=== PATIENT | male | born 1965 ===

== ENCOUNTER 2020-03-10 15:48 | Outpatient (REF) | payer OTHER, SELFPAY ==
--- NOTE | 2020-03-10 16:00 | MR_ITS ---
EXAMINATION: MR CERVICAL SPINE WITHOUT CONTRAST CLINICAL INFORMATION: Cervical radiculopathy. Bilateral upper extremity numbness and weakness. COMPARISON: Cervical spine MRI 02/09/2017. TECHNIQUE: MRI of the cervical spine was obtained using routine sequences without contrast. FINDINGS: Patient motion degrades image quality therefore the diagnostic accuracy of this examination is limited. Alignment is normal. Vertebral heights are preserved. There are type I degenerative endplate changes at C6-C7. Bone marrow signal intensity is otherwise unremarkable. There is loss of intervertebral disc height and T2 signal intensity at C6-C7 related to disc degeneration. There is disc desiccation at multiple additional levels without substantial loss of intervertebral disc height. There is no cord compression or abnormal intramedullary signal changes. The cervicomedullary junction is normal. Limited visualization of the intracranial compartment reveals no abnormal finding. A occipital condyles and lateral C1 masses are intact. Atlantodental joint is normal. C1-C2 articular facets are unremarkable. At C2-C3 the annular contour is normal. No canal or neuroforaminal compromise. At C3-C4 there is a slightly bulging disc. Mild canal stenosis. No neuroforaminal encroachment. At C4-C5 there is a shallow central protrusion. No canal or neuroforaminal encroachment. At C5-C6 there is a slightly bulging disc. No canal stenosis. Minimal uncovertebral joint spurring. No substantial neuroforaminal encroachment. At C6-C7 there is a diffusely bulging disc causing flattening of the ventral thecal sac. No canal stenosis. Asymmetric uncovertebral joint spurring and facet degenerative change causes moderate left neuroforaminal encroachment. At C7-T1 the annular contour is normal. No canal or neuroforaminal compromise. Visualized soft tissues of the neck are normal. IMPRESSION: Patient motion degrades image quality therefore the diagnostic accuracy of this examination is limited. There is multilevel degenerative spondylosis of the cervical spine. Mild canal stenosis at C3-C4. Otherwise no canal compromise. No cord compression or abnormal intramedullary signal changes. Asymmetric uncovertebral joint spurring and facet degenerative change at C6-C7 causes moderate left neuroforaminal encroachment.
== END 2020-03-10 15:49 | disposition home or self-care (01) ==
LOC: HO.MRI 15:48
PROVIDERS: Visit Provider Neurological Surgery
DX: M54.12 Radiculopathy, cervical region (principal); M54.2 Cervicalgia; M79.603 Pain in arm, unspecified
CPT/HCPCS: 72141

== ENCOUNTER 2020-03-16 08:10 | Outpatient (REF) | payer OTHER, SELFPAY ==
[2020-03-16 10:11] LABS: Alanine Aminotransferase 39 U/L (0-40); Albumin Level 4.4 g/dL (3.5-5.0); Alkaline Phosphatase 65 U/L (39-117); Anion Gap 10 (12-20); Aspartate Amino Transferase 35 U/L (5-37); Bilirubin Total 0.7 mg/dL (0.0-1.0); Blood Urea Nitrogen 14 mg/dL (9-16); Calcium 9.2 mg/dL (8.4-10.2); Carbon Dioxide 32 mmol/L (22-29); Chloride 103 mmol/L (96-108); Cholesterol 212 mg/dL; Estimated Glomerular Filt Rate > 60; Glucose Fasting 100 mg/dL (60-99); HDL Cholesterol 40 mg/dL; LDL Cholesterol Calculated 118 mg/dl; Potassium 4.2 mmol/l (3.3-5.1); Sodium 141 mmol/L (135-145); Total Protein 7.1 g/dL (6.5-8.0); Triglycerides 271 mg/dL
== END 2020-03-16 08:11 | disposition home or self-care (01) ==
LOC: HO.LAB 08:10
PROVIDERS: PCP Internal Medicine; Visit Provider Internal Medicine
DX: I10 Essential (primary) hypertension (principal)
CPT/HCPCS: 80053; 80061

== ENCOUNTER 2020-03-28 07:38 | Outpatient (REF) | payer OTHER, SELFPAY ==
[2020-03-28 08:32] LABS: Alanine Aminotransferase 38 U/L (0-40); Albumin Level 4.4 g/dL (3.5-5.0); Alkaline Phosphatase 65 U/L (39-117); Anion Gap 12 (12-20); Aspartate Amino Transferase 38 U/L (5-37); Bilirubin Total 1.8 mg/dL (0.0-1.0); Blood Urea Nitrogen 17 mg/dL (9-16); Calcium 8.9 mg/dL (8.4-10.2); Carbon Dioxide 28 mmol/L (22-29); Chloride 104 mmol/L (96-108); Cholesterol 211 mg/dL; Estimated Glomerular Filt Rate > 60; Glucose Fasting 107 mg/dL (60-99); HDL Cholesterol 45 mg/dL; LDL Cholesterol Calculated 134 mg/dl; Sodium 140 mmol/L (135-145); Triglycerides 164 mg/dL
[2020-03-28 08:55] LABS: TSH reflex Free T4 1.19 mIU/mL (0.32-4.0)
== END 2020-03-28 07:39 | disposition home or self-care (01) ==
LOC: HO.LAB 07:38
PROVIDERS: PCP Internal Medicine; Visit Provider Internal Medicine
DX: I10 Essential (primary) hypertension (principal); R53.82 Chronic fatigue, unspecified; E78.2 Mixed hyperlipidemia
CPT/HCPCS: 80053; 80061; 84443

== ENCOUNTER 2020-04-07 05:12 | Outpatient (REF) | payer OTHER, SELFPAY ==
--- NOTE | 2020-04-07 13:10 | FL_ITS ---
EXAMINATION: XR FLUOROSCOPY WITH IMAGES CLINICAL INFORMATION: Other intervertebral disc degeneration of the lumbar region COMPARISON: Lumbar spine 01/10/2020 TECHNIQUE: Fluoroscopy performed by ZANDRA Sousa. Fluoroscopy time: 0.8 minutes DAP: 4.76 Gycm2 Images: 4 FINDINGS: Intraoperative fluoroscopic spot images demonstrate guidance for placement of needles and contrast injection into the right L5-S1 and left L4-L5 neuroforamina. FL/FL guidance in treatment room IMPRESSION: Intraoperative fluoroscopic guidance as described above.
== END 2020-04-07 05:13 | disposition home or self-care (01) ==
LOC: HO.RADIR 05:12
PROVIDERS: Visit Provider Anesthesiology
DX: M51.36 Other intervertebral disc degeneration, lumbar region (principal)
CPT/HCPCS: 64483; 64484; J1100; J3300; Q9967

== ENCOUNTER 2020-04-27 09:33 | Outpatient (REF) | payer OTHER, SELFPAY | END 2020-04-27 09:34 | disposition home or self-care (01) | LOC: HO.LAB 09:33 | PROVIDERS: Visit Provider Internal Medicine | DX: Z20.828 Contact with and (suspected) exposure to other viral communicable diseases (principal) | CPT/HCPCS: C9803; U0003 ==

== ENCOUNTER → 2020-05-06 15:54 | Outpatient (BNVA) | payer OTHER, SELFPAY | PROVIDERS: PCP Internal Medicine; Referring Provider Internal Medicine; Visit Provider Anesthesiology | DX: M51.36 Other intervertebral disc degeneration, lumbar region (principal) | CPT/HCPCS: Q3014 ==

== ENCOUNTER 2020-05-11 08:38 | Outpatient (REF) | payer OTHER, SELFPAY | END 2020-05-11 08:39 | disposition home or self-care (01) | LOC: HO.LAB 08:38 | PROVIDERS: PCP Internal Medicine; Visit Provider Internal Medicine | DX: Z20.828 Contact with and (suspected) exposure to other viral communicable diseases (principal) | CPT/HCPCS: C9803; U0003 ==

== ENCOUNTER 2020-05-15 11:54 | Outpatient (REF) | payer OTHER, SELFPAY ==
--- NOTE | 2020-05-15 12:02 | XR_ITS ---
EXAMINATION: XR CERVICAL SPINE CLINICAL INFORMATION: Status post C6-C7 ACDF 04/09/2020. COMPARISON: None TECHNIQUE: 6 views of the cervical spine, inclusive of flexion and extension views, were obtained. FINDINGS: There is mild straightening of cervical lordosis. There is C6-C7 fusion with intervening bone graft and ventral plate and screws for stabilization. There is no subluxation seen at the fused level or any of the cervical disc levels. Mild ventral spurring is seen at the C5-C6 disc level. Rest of the disc heights, vertebral heights and alignment is maintained normal. The prevertebral and paravertebral soft tissues are normal. XR/XR cervical spine w flex/ext IMPRESSION: C6-C7 disc fusion with intervening bone graft , ventral plate and screws for stabilization. No subluxation seen at the fused level or rest of the cervical spine. There is a moderate ventral spur at C5-C6 disc level.
== END 2020-05-15 11:55 | disposition home or self-care (01) ==
LOC: HO.XRAY 11:54
PROVIDERS: PCP Internal Medicine; Visit Provider Neurological Surgery
DX: Z98.890 Other specified postprocedural states (principal)
CPT/HCPCS: 72052

== ENCOUNTER 2020-06-02 15:13 | Outpatient (REF) | payer OTHER, SELFPAY ==
--- NOTE | 2020-06-02 15:21 | XR_ITS ---
EXAMINATION: XR CHEST CLINICAL INFORMATION: Pneumonia due to] 19 minus COMPARISON: None TECHNIQUE: 2 views of the chest were obtained. FINDINGS: The lungs are expanded and clear of acute process. The heart size and pulmonary vascularity is normal. There is mild spondylosis of dorsal spine. No lytic process. XR/XR chest 2V IMPRESSION: Unremarkable chest exam.
== END 2020-06-02 15:14 | disposition home or self-care (01) ==
LOC: HO.XRAY 15:13
PROVIDERS: PCP Internal Medicine; Visit Provider Internal Medicine
DX: U07.1 COVID-19 (principal)
CPT/HCPCS: 71046

== ENCOUNTER 2020-07-09 16:04 | Outpatient (REF) | payer OTHER, SELFPAY ==
--- NOTE | ~2020-07-09 | XR_ITS ---
EXAMINATION: XR LUMBOSACRAL SPINE CLINICAL INFORMATION: Low back pain COMPARISON: Previous MRI most recent December 2019 and lump x-ray December 2014 TECHNIQUE: Three views of the lumbosacral spine. FINDINGS: There is mild curvature of the lower lumbar spine to the left. There is mild 5 mm anterior subluxation of L5 with respect to L4. There is a degenerative disc disease at L4-L5 and L5-S1. There is degenerative spondylosis at L1-L2 3 and L3-L4. There is lower lumbar spine facet arthritis. Bilateral L5 pars defects appreciated by MRI are not well appreciated by x-ray. XR/XR lumbar spine 2-3V IMPRESSION: Mild anterior subluxation of L5 with respect to L4, lower lumbar spine and degenerative disc disease and facet arthritis. Degenerative changes have increased from 2015 x-ray.
== END 2020-07-09 16:05 | disposition home or self-care (01) ==
LOC: HO.XRAY 16:04
PROVIDERS: Absent Provider Nurse Practitioner Family; PCP Internal Medicine; Visit Provider Anesthesiology
DX: M54.5 Low back pain (principal)
CPT/HCPCS: 72100; 99212

== ENCOUNTER 2020-11-13 13:19 | Outpatient (REF) | payer OTHER, SELFPAY ==
[2020-11-13 16:25] LABS: Glucose Urine UA NEG (NEG); Leukocyte Esterase Urine NEG (NEG); Nitrite Urine NEG (NEG); Urine Blood NEG (NEG); Urine Ketones NEG (NEG); Urine Protein NEG (NEG-TRACE)
[2020-11-13 16:27] LABS: Appearance Urine CLEAR; Color Urine YELLOW
== END 2020-11-13 13:20 | disposition home or self-care (01) ==
LOC: HO.LAB 13:19
PROVIDERS: PCP Internal Medicine; Visit Provider Internal Medicine
DX: R31.9 Hematuria, unspecified (principal)
CPT/HCPCS: 81003

== ENCOUNTER 2021-05-08 07:52 | Outpatient (REF) | payer OTHER, SELFPAY ==
[2021-05-08 08:07] LABS: MANUAL DIFF FLAG NO
[2021-05-08 09:09] LABS: Basophils Percent Auto 0.5 % (0-2); Eosinophils Absolute Auto 0.2 X10*3/uL (0.0-0.4); Eosinophils Percent Auto 3.3 % (0-4); Hematocrit 45.8 % (42.0-52.0); Hemoglobin 15.2 g/dl (14.0-18.0); Imm Gran Abs Auto 0.01 X10*3/uL (0.00-0.03); Imm Gran Pct Auto 0.2 % (0.0-0.4); Lymphocytes Absolute Auto 2.1 X10*3/uL (1.2-4.9); Lymphocytes Percent Auto 36.7 % (20-40); Mean Corpuscular HGB Conc 33.2 g/dl (31.0-36.0); Mean Corpuscular Hemoglobin 29.6 pg (27.0-33.0); Mean Corpuscular Volume 89.3 fL (80.0-98.0); Monocytes Absolute Auto 0.4 X10*3/uL (0.1-1.2); Monocytes Percent Auto 6.8 % (2-11); Neutrophils Percent Auto 52.5 % (45-73); Platelet Count 243 X10*3/uL (160-400); Red Blood Count 5.13 X10*6/uL (4.60-5.80); Red Cell Distribution Width 12.6 % (11.0-16.0); White Blood Count 5.7 X10*3/uL (4.8-10.8)
[2021-05-08 09:33] LABS: Alanine Aminotransferase 21 U/L (0-40); Albumin Level 4.2 g/dL (3.5-5.0); Alkaline Phosphatase 75 U/L (39-117); Anion Gap 10 (12-20); Aspartate Amino Transferase 29 U/L (5-37); Bilirubin Total 1.4 mg/dL (0.0-1.0); Blood Urea Nitrogen 11 mg/dL (9-16); Calcium 9.3 mg/dL (8.4-10.2); Carbon Dioxide 30 mmol/L (22-29); Chloride 106 mmol/L (96-108); Cholesterol 161 mg/dL; Estimated Glomerular Filt Rate > 60; Glucose Fasting 95 mg/dL (60-99); HDL Cholesterol 44 mg/dL; LDL Cholesterol Calculated 94 mg/dl; Potassium 4.3 mmol/L (3.3-5.1); Sodium 142 mmol/L (135-145); Total Protein 6.8 g/dL (6.5-8.0); Triglycerides 118 mg/dL
[2021-05-13 14:06] LABS: Vitamin D 25-OH, D2 <4 ng/mL; Vitamin D 25-OH, D3 34 ng/mL; Vitamin D 25-OH, Total 34 ng/mL (30-100)
[2021-05-13 16:06] LABS: Testosterone, Free 100.1 pg/mL (35.0-155.0); Testosterone, Total 541 ng/dL (250-1100)
== END 2021-05-08 07:53 | disposition home or self-care (01) ==
LOC: HO.LAB 07:52
PROVIDERS: PCP Internal Medicine; Visit Provider Internal Medicine
DX: E78.5 Hyperlipidemia, unspecified (principal); I10 Essential (primary) hypertension; E55.9 Vitamin D deficiency, unspecified; R53.82 Chronic fatigue, unspecified; D64.9 Anemia, unspecified; I26.99 Other pulmonary embolism without acute cor pulmonale
CPT/HCPCS: 36415; 80053; 80061; 82306; 84402; 84403; 85025

== ENCOUNTER 2021-09-18 07:19 | Outpatient (REF) | payer OTHER, SELFPAY ==
[2021-09-18 07:42] LABS: MANUAL DIFF FLAG NO
[2021-09-18 08:10] LABS: Basophils Percent Auto 0.5 % (0-2); Eosinophils Absolute Auto 0.2 X10*3/uL (0.0-0.4); Eosinophils Percent Auto 2.9 % (0-4); Hematocrit 44.4 % (42.0-52.0); Hemoglobin 15.3 g/dl (14.0-18.0); Imm Gran Abs Auto 0.02 X10*3/uL (0.00-0.03); Imm Gran Pct Auto 0.3 % (0.0-0.4); Lymphocytes Absolute Auto 2.1 X10*3/uL (1.2-4.9); Lymphocytes Percent Auto 36.4 % (20-40); Mean Corpuscular HGB Conc 34.5 g/dl (31.0-36.0); Mean Corpuscular Hemoglobin 30.2 pg (27.0-33.0); Mean Corpuscular Volume 87.6 fL (80.0-98.0); Mean Platelet Volume 9.6 fL (9.4-12.4); Monocytes Absolute Auto 0.5 X10*3/uL (0.1-1.2); Monocytes Percent Auto 7.7 % (2-11); Neutrophils Percent Auto 52.2 % (45-73); Platelet Count 268 X10*3/uL (160-400); Red Blood Count 5.07 X10*6/uL (4.60-5.80); White Blood Count 5.8 X10*3/uL (4.8-10.8)
[2021-09-18 08:38] LABS: Alanine Aminotransferase 35 U/L (0-40); Albumin Level 4.4 g/dL (3.5-5.0); Alkaline Phosphatase 68 U/L (39-117); Anion Gap 10 (12-20); Aspartate Amino Transferase 47 U/L (5-37); Bilirubin Total 1.7 mg/dL (0.0-1.0); Blood Urea Nitrogen 17 mg/dL (9-16); Calcium 9.3 mg/dL (8.4-10.2); Carbon Dioxide 28 mmol/L (22-29); Chloride 105 mmol/L (96-108); Cholesterol 215 mg/dL; Estimated Glomerular Filt Rate > 60; Glucose Fasting 101 mg/dL (60-99); HDL Cholesterol 52 mg/dL; LDL Cholesterol Calculated 146 mg/dl; Potassium 3.9 mmol/L (3.3-5.1); Sodium 139 mmol/L (135-145); Total Protein 7.1 g/dL (6.5-8.0); Triglycerides 88 mg/dL
== END 2021-09-18 07:20 | disposition home or self-care (01) ==
LOC: HO.LAB 07:19
PROVIDERS: PCP Internal Medicine; Visit Provider Internal Medicine
DX: Z13.89 Encounter for screening for other disorder (principal)
CPT/HCPCS: 36415; 80053; 80061; 85025

== ENCOUNTER 2021-11-02 15:33 | Outpatient (REF) | payer OTHER, SELFPAY ==
[2021-11-02 17:53] LABS: Bilirubin Direct 0.3 mg/dL (0.0-0.5); Gamma Glutamyl Transpeptidase 44 U/L (11-51)
[2021-11-02 18:15] LABS: Ferritin 189 ng/mL (20-250)
[2021-11-03 03:57] LABS: HBS Num1 1.35 mIU/mL (0-7.99); HBsAGNum1 0.18 S/CO (0.00-0.99); HIV AB/AG Nonreactive (Nonreactive); HIV Num 1 0.06 S/CO (0.00-0.99); Hepatitis A Antibody IgM 0.44 Index (0-0.79); Hepatitis B Core Antibody Nonreactive (Nonreactive); Hepatitis B Surface Antigen Negative (Negative); ~HepC Num1 0.05 S/CO (0.00-0.79); ~Hepatitis A Antibody IgM Nonreactive (Nonreactive); ~Hepatitis B Surface Antibody NONREACTIVE (Nonreactive); ~Hepatitis C Antibody Nonreactive (Nonreactive)
[2021-11-04 11:36] LABS: Alpha Fetoprotein 1.5 ng/mL (<6.1)
[2021-11-04 14:17] LABS: Anti Nuclear Antibody Screen NEGATIVE (NEGATIVE)
[2021-11-04 14:42] LABS: Ceruloplasmin 26 mg/dL (18-36)
[2021-11-05 15:41] LABS: Mitochondrial Antibodies NEGATIVE (NEGATIVE)
[2021-11-05 23:47] LABS: Smooth Muscle Antibody <20 U (<20)
== END 2021-11-02 15:34 | disposition home or self-care (01) ==
LOC: HO.LAB 15:33
PROVIDERS: PCP Internal Medicine; Referring Provider Internal Medicine; Visit Provider Nurse Practitioner
DX: Z11.4 Encounter for screening for human immunodeficiency virus [HIV] (principal); R74.01 Elevation of levels of liver transaminase levels
CPT/HCPCS: 36415; 82105; 82248; 82390; 82728; 82977; 86015; 86038; 86039; 86255; 86256; 86704; 86706; 86709; 86803; 87340; 87389; 99202

== ENCOUNTER 2021-12-01 07:48 | Outpatient (REF) | payer OTHER, SELFPAY ==
--- NOTE | ~2021-12-01 | US_ITS ---
EXAMINATION: US COMPLETE ABDOMEN WITH LIVER ELASTOGRAPHY CLINICAL INFORMATION: Elevated serum liver transaminase levels. COMPARISON: None. TECHNIQUE: Real-time imaging of the abdominal viscera. Noninvasive ultrasound liver fibrosis assessment is performed using [employer] ElastPQ point quantification shear wave elastography (2D-SWE) with a C5-2 MHz transducer. Multiple elastography samples are obtained. FINDINGS: PANCREAS: The majority of the pancreas is obscured by overlying gas. ABDOMINAL AORTA: The proximal, middle, and distal aortic segments are normal in caliber. INFERIOR VENA CAVA: Visualized portions are normal. LIVER: The liver demonstrates normal size, contour and increased echogenicity. There is ill-defined echogenic lesion artifact versus hepatic fatty infiltration. There is no intrahepatic biliary duct dilatation. The right lobe measures 18.1 cm in length. The left lobe measures 8.3 cm in length. Portal flow is antegrade. Shear wave liver elastography median stiffness is 1.25 m/s (reference: normal median stiffness is 1.3 m/s or less). IQR/median stiffness to assess sampling precision is 0.1 (reference: good quality data set is IQR/median stiffness of 0.15 or less). GALLBLADDER: Normal. The gallbladder is physiologically distended without evidence of stones, sludge, polyps, wall thickening or pericholecystic fluid. COMMON BILE DUCT: Normal in caliber measuring 0.3 cm in diameter. RIGHT KIDNEY: Normal. No hydronephrosis. No renal calculi or focal parenchymal lesions. The kidney measures 10.2 cm in maximum dimension. LEFT KIDNEY: Normal. No hydronephrosis. No renal calculi or focal parenchymal lesions. The kidney measures 10.5 cm in maximum dimension. SPLEEN: Normal. The spleen measures 11.4 cm in maximum dimension. FREE FLUID: None. US/US abdomen comp w elastography IMPRESSION: 1. Hepatic steatosis with few scattered echogenic lesions likely artifact or fatty infiltration. 2. Liver elastography: Median liver stiffness measures 1.25 m/s suggestive of high probably normal. REFERENCE: Society of Radiologists in Ultrasound Liver Stiffness Thresholds (2020): LIVER STIFFNESS THRESHOLDS: *Liver Stiffness equal or less than 1.3 m/s: High probability of being normal. *Liver Stiffness less than 1.7 m/s: In the absence of other known clinical signs, rules out compensated advanced chronic liver disease. *Liver Stiffness 1.7-2.1 m/s: Suggestive of compensated advanced chronic liver disease but need further test for confirmation. *Liver Stiffness over 2.1 m/s: Rules in compensated advanced chronic liver disease. *Liver Stiffness over 2.4 m/s: Suggestive of clinically significant portal hypertension. QUALITY OF DATA SET: *IQR/Median value equal or less than 0.15 implies a quality data set. *IQR/Median value over 0.15 implies a poor quality data set. SIGNIFICANT CHANGE FROM PRIOR EXAM: Significant change if liver stiffness measurement is 10% or greater from prior exam. OTHER CONSIDERATIONS: The stage of liver fibrosis may be overestimated in the setting of acute hepatitis, liver inflammation, elevated liver function tests, hepatic vascular congestion, obstructive cholestasis, non-fasting state, and infiltrative diseases such as amyloidosis and lymphoma. In some patients with NAFLD, the liver stiffness thresholds for compensated advanced chronic liver disease may be lower. In causes other than viral hepatitis and NAFLD, liver stiffness thresholds are not well established.
== END 2021-12-01 07:49 | disposition home or self-care (01) ==
LOC: HO.US 07:48
PROVIDERS: Visit Provider Nurse Practitioner
DX: R74.01 Elevation of levels of liver transaminase levels (principal)
CPT/HCPCS: 76705; 76981

== ENCOUNTER → 2022-02-28 12:41 | Outpatient (REF) | payer OTHER, SELFPAY ==
--- NOTE | 2022-02-28 12:46 | ECG_ITS ---
Test Reason : cp Blood Pressure : / mmHG Vent. Rate : 068 BPM Atrial Rate : 068 BPM P-R Int : 162 ms QRS Dur : 110 ms QT Int : 378 ms P-R-T Axes : 059 038 032 degrees QTc Int : 401 ms Normal sinus rhythm Normal ECG No previous ECGs available Referred By: Seble Oscar Electronically Signed By:DENISA SANTIAGO
== END ==
LOC: HO.CARD 12:41
PROVIDERS: PCP Internal Medicine; Visit Provider Internal Medicine
DX: R07.9 Chest pain, unspecified (principal)
CPT/HCPCS: 93005

== ENCOUNTER 2022-08-27 07:03 | Outpatient (REF) | payer OTHER, SELFPAY ==
[2022-08-27 09:15] LABS: Alanine Aminotransferase 26 U/L (0-40); Albumin Level 4.4 g/dL (3.5-5.0); Alkaline Phosphatase 100 U/L (39-117); Anion Gap 14 (12-20); Aspartate Amino Transferase 32 U/L (5-37); Bilirubin Direct 0.2 mg/dL (0.0-0.5); Bilirubin Total 1.1 mg/dL (0.0-1.0); Blood Urea Nitrogen 14 mg/dL (9-16); Calcium 9.5 mg/dL (8.4-10.2); Carbon Dioxide 30 mmol/L (22-29); Chloride 103 mmol/L (96-108); Cholesterol 202 mg/dL; Estimated Glomerular Filt Rate > 60; Glucose Fasting 96 mg/dL (60-99); HDL Cholesterol 45 mg/dL; LDL Cholesterol Calculated 126 mg/dl; Potassium 4.5 mmol/L (3.3-5.1); Sodium 142 mmol/L (135-145); Total Protein 7.2 g/dL (6.5-8.0); Triglycerides 159 mg/dL
[2022-08-27 09:36] LABS: Vitamin D 25-OH Total 53.8 ng/mL (>30)
== END 2022-08-27 07:04 | disposition home or self-care (01) ==
LOC: HO.LAB 07:03
PROVIDERS: PCP Internal Medicine; Visit Provider Internal Medicine
DX: E78.5 Hyperlipidemia, unspecified (principal); R07.9 Chest pain, unspecified; E55.9 Vitamin D deficiency, unspecified; R74.01 Elevation of levels of liver transaminase levels
CPT/HCPCS: 36415; 80053; 80061; 80076; 82248; 82306

== ENCOUNTER 2022-12-09 15:32 | Outpatient (AMB) | payer OTHER, SELFPAY ==
[2022-12-09 15:33] VITALS: BP 130/94; PULSE 70; O2SAT 99; BMI 28.0
--- NOTE | 2022-12-09 15:33 | A.OFFPC_ITS ---
Vital Signs 12/09/22 15:33 Height 5 ft 4 in Weight 163 lb BMI 28.0 BP 130/94 H Blood Pressure Location Lt brachial Position Sitting Pulse 70 Pulse Source Pulse Oximeter Temp Source Skin Pulse Oximetry (%) 99 Oxygen Delivery Method Room Air Intake Visit Reasons: Gastro Referral-Colonoscopy Intake Note: pt states colonoscopy needed and gastroenterology referral Allergies prochlorperazine [From COMPAZINE] Allergy (Intermediate, Verified 12/09/22 16:14) DIFFICULTY BREATHING gabapentin Allergy (Mild, Verified 12/09/22 16:14) depression Medication List - Last Reconciled 12/09/22 by ANNA Spaulding cholecalciferol (vitamin D3) 50 mcg PO DAILY cyanocobalamin (vitamin B-12) 2,500 mcg PO DAILY docusate sodium (Colace) 100 mg PO DAILY PRN 30 days omega 5-get-vkw-fish oil 1,000 mg (120 mg-180 mg) (Fish Oil) 1 cap PO DAILY Tobacco use date assessed: 12/09/22 HPI Gastro Referral-Colonoscopy HPI Details Patient is a 57-year-old male who presents today to request referral to GI for a colon cancer screening. Patient Dr. Marshall. Medical history significant for hyperlipidemia, hypertension, degenerative disc disease, cervical radiculopathy, OLIVA among others. Patient reports chronic intermittent con stipation, he does take Colace as needed with some improvement. He reports intermittent blood on toilet paper which is bright red, and reports intermittent rectum irritation. He denies abdominal pain, no nausea or vomiting, no diarrhea. Last colonoscopy 02/2015 which showed diverticulosis, internal hemorrhoids, and anal papillary hypertrophy - was done by Dr. Arrington. [facility] Medical History (Updated 12/09/22 @ 16:39 by ANNA Spaulding) Cervical radiculopathy Chronic fatigue Disc degeneration, lumbar Essential hypertension Hearing loss Hematuria Lab test positive for detection of COVID-19 virus Left shoulder pain Lower back pain Mixed hyperlipidemia Pulmonary embolism Transaminitis Surgical History (Updated 12/09/22 @ 16:37 by ANNA Spaulding) H/O neck surgery History of colonoscopy History of rectal polypectomy Family History Father Dementia Mother Hypertension Diabetes Social History Housing: Apartment Alcohol intake: current Alcohol intake frequency: holidays/special occasions only Alcohol type: beer and hard liquor Patient Tobacco Use Status: Former Tobacco user e-Cigarette/Vaping Use: Never Used Second Hand Smoke Exposure: Yes service: No Current occupational status: employed Current occupational exposures/hazards: No Cognitive needs: No Hearing needs: No Vision needs: Yes Questionnaire PHQ-9 Over the last 2 weeks, how often have you been bothered by any of the following problems? 1. Little interest or pleasure in doing things: not at all 2. Feeling down, depressed, or hopeless: not at all 3. Trouble falling or staying asleep, or sleeping too much: several days 4. Feeling tired or having little energy: not at all 5. Poor appetite or overeating: not at all 6. Feeling bad about yourself - or that you are a failure or have let yourself or your family down: not at all 7. Trouble concentrating on things, such as reading the newspaper or watching television: not at all 8. Moving or speaking so slowly that other people could have noticed. Or the opposite - being so fidgety or restless that you have been moving around a lot more than usual: several days 9. Thoughts that you would be better off or of hurting yourself in some way: not at all Total score: 2 Depression Screening Interpretation: Negative 31346 - PHQ-9 Billing: Yes Source: Developed by Drs. Jimmy Guerra, Kamran Norwood and colleagues, with an educational eber from [employer]. Thrive Questionnaire Date Thrive assessed: 08/30/22 AUDIT C Alcohol Use Questionnaire (AUDIT-C) 1. How often do you have a drink containing alcohol?: Monthly or less 2. How many drinks containing alcohol do you have on a typical day when you are drinking?: 1 or 2 3. How often do you have six or more drinks on one occasion?: Never Total Score: 1 Score Reviewed/Action Taken: No GIA-7 AMB Questionnaire GIA-7 Date GIA - 7 assessed: 08/30/22 Source: Developed by Drs. Jimmy Guerra, Kamran Norwood and colleagues, with an educational eber from [employer] Review of Systems Const Denies body aches, Denies chills, Denies fever(s) and Denies headache(s) Eyes Denies change in vision ENT Denies dizziness, Denies otalgia, Denies headache(s), Denies nasal discharge, Denies sinus pain and Denies sore throat Card Denies chest pain, Denies edema, Denies lightheadedness and Denies dyspnea Resp Denies cough and Denies dyspnea GI Reports as per HPI, Denies abdominal pain, Reports hematochezia, Reports constipation, Denies diarrhea, Denies nausea and Denies vomiting Denies dysuria Musc Denies myalgias Skin/Breast Denies rash Neuro Denies dizziness and Denies headache(s) Physical exam (Primary Care) Vital Signs: Last Vital Signs Pulse 70 12/09/22 15:33 BP 130/94 H 12/09/22 15:33 Pulse Ox 99 12/09/22 15:33 Oxygen Delivery Method Room Air 12/09/22 15:33 BMI result Body Mass Index 28.0 Tobacco/Smoking Status: Tobacco use Status Tobacco use date assessed 12/09/22 12/09/22 15:35 Patient Tobacco Use Status Former Tobacco user 12/09/22 15:34 e-Cigarette/Vaping Use Never Used 12/09/22 15:34 PHQ-9: PHQ-9 Score PHQ-9: Total score 2 12/09/22 15:53 Depression Screening Interpretation: Negative Thrive Assessment: Date of Thrive Assessment Date Thrive assessed 08/30/22 12/09/22 15:34 Const General: cooperative and no acute distress Orientation/consciousness: patient oriented x3 HENMT Head: Yes normocephalic and Yes atraumatic Mouth: moist mucous membranes Throat: Yes posterior oropharynx normal Eyes General: appearance normal, both eyes and all related structures Neck Neck: Yes normal visual inspection and Yes full ROM Resp Effort & Inspection: normal respiratory effort and able to speak in complete sentences Auscultation: clear to auscultation bilaterally, no crackles, no rales, no rhonchi and no wheezes Cardio Rate: regular rate Rhythm: regular rhythm Heart sounds: S1 normal heart sound present and S2 normal heart sound present GI Other: Patient declined exam to assess for external hemorrhoids Palpation (GI): Soft to palpation, not firm, nontender, no guarding, not rigid and no hepatosplenomegaly Auscultation: normal bowel sounds Skin General skin exam: no rashes or lesions noted Neuro General: patient oriented x3 Gait exam (Neuro): Normal gait present Extrem General: Yes full ROM and No edema Assessment and Plan Assessment & Plan (1) Skin irritation: Code(s): R23.8 - Other skin changes Plan: Patient reports intermittent rectal skin irritation, will provide with preparation H topical application p.r.n.. Patient declined assessment for external hemorrhoids. (2) Screening for colon cancer: Code(s): Z12.11 - Encounter for screening for malignant neoplasm of colon Plan: Will refer to GI for a possible colonoscopy (3) Constipation: Code(s): K59.00 - Constipation, unspecified Plan: Increase dietary fiber and fluid consumption Continue Colace 1 capsule daily p.r.n. (4) Bright red blood per rectum: Code(s): K62.5 - Hemorrhage of anus and rectum Plan: GI referral Orders: Referrals Gastroenterology Referral K59.00 - Constipation, unspecified, K62.5 - Hemorrhage of anus and rectum, Z12.11 - Encounter for screening for malignant neoplasm of colon Medications: New hydrocortisone 1% (Preparation H Hydrocortisone) 1 appl topical TID PRN 28.35 grams 0RF skin irritation R23.8 - Other skin changes Refilled docusate sodium (Colace) 100 mg PO DAILY PRN 30 caps 0RF constipation 30 days Coding Level of Care Code Est Pt Level 3 (60649) Diagnoses Skin irritation R23.8 Screening for colon cancer Z12.11 Constipation K59.00 Bright red blood per rectum K62.5
== END 2022-12-09 17:36 | disposition home or self-care (01) ==
PROVIDERS: PCP Internal Medicine; Visit Provider Nurse Practitioner Family
DX: R23.8 Other skin changes (principal); Z12.11 Encounter for screening for malignant neoplasm of colon; K59.00 Constipation, unspecified; K62.5 Hemorrhage of anus and rectum
CPT/HCPCS: 99213

== ENCOUNTER 2022-12-23 15:59 | Outpatient (AMB) | payer OTHER, SELFPAY ==
[2022-12-23 16:01] VITALS: BP 159/95; PULSE 65; BMI 28.1
--- NOTE | 2022-12-23 16:01 | MHC.OFFVIS ---
Intake Vital Signs 12/23/22 16:01 Height 5 ft 4 in Weight 164 lb BMI 28.1 BP 159/95 H Blood Pressure Location Lt brachial Position Sitting Pulse 65 Intake Visit Reasons: Follow up Constipation Intake Note: Patient presents to in office visit today in follow up of constipation. CC: Patient reports he feels internal rectal burning. He would like to have a colonoscopy done. He also reports bleeding when having a BM, and occasional nausea and GERD. Denies other GI symptoms today. Allergies prochlorperazine [From COMPAZINE] Allergy (Intermediate, Verified 12/29/22 15:41) DIFFICULTY BREATHING gabapentin Allergy (Mild, Verified 12/29/22 15:41) depression HPI Follow up Constipation HPI Details Assessment & Plan (1) Transaminitis: Code(s): R74.01 - Elevation of levels of liver transaminase levels Plan: Jamaican #[id number] He tells me I had an endoscopy and a liver biopsy in 2004 for my liver and they told me my liver was a little fatty, but not bad. He thinks this was performed at [facility]. HE says that he goes to the gym and uses a lot of creatinine, protein and vitamins and wants to know if this is a part of the problem. He also says he takes Tylenol and naproxen for JACKSON. He admits that he will take more Tylenol than is recommended on the box. This prompts education regarding the toxicity of Tylenol. He says he used to drink too much 20 years ago, and now he only drinks yearly, not on a daily basis. No FHX of liver problems. I explain about fatty liver briefly so that he knows that there are some things more inherited than behavior directed. He quite guarded and in the end his reservations centered around the fact that he did not want a repeat liver biopsy. Explained to him that we do not do these so frequently anymore and there is no reason why we would need to repeat this examination. I asked him to always bring up anything that may concerned him or as we go forward with his treatment. rov after US. Orders: Orders Alpha Fetoprotein Today R74.01 - Elevation of levels of liver transaminase levels Bilirubin Direct Today R74.01 - Elevation of levels of liver transaminase levels Ceruloplasmin Today R74.01 - Elevation of levels of liver transaminase levels Ferritin Today R74.01 - Elevation of levels of liver transaminase levels Gamma Glutamyl Transpeptidase Today R74. - Elevation of levels of liver transaminase levels HEATHER Reflex Titer and Pattern Today R74. - Elevation of levels of liver transaminase levels Mitochondrial Antibody Today R74. - Elevation of levels of liver transaminase levels Smooth Muscle Antibody Today R74. - Elevation of levels of liver transaminase levels Hepatitis A,B,C Profile Today R74. - Elevation of levels of liver transaminase levels HIV Ab/Ag Today R74. - Elevation of levels of liver transaminase levels US abdomen comp w elastography Today R74. - Elevation of levels of liver transaminase levels LABS: Laboratory Tests 09/18/21 11/02/21 11/02/21 07:41 16:40 16:40 WBC 5.8 Hgb 15.3 Hct 44.4 Plt Count 268 Estimated GFR Ferritin 189 Total Bilirubin Direct Bilirubin GGT 44 AST ALT Alkaline Phosphata se Ceruloplasmin 26 Alpha Fetoprotein 1.5 HEATHER Screen Anti-Mitochondrial Ab Anti-Smooth Muscle Ab Hepatitis A IgM Ab Hep Bs Antigen Hep Bs Antibody Hep B Core Total A b Hepatitis C Ab (EI A) HIV 1&2 Ab/P24 Ag 4thGn 11/02/21 11/02/21 11/02/21 16:40 16:40 16:40 WBC Hgb Hct Plt Count Estimated GFR Ferritin Total Bilirubin Direct Bilirubin GGT AST ALT Alkaline Phosphata se Ceruloplasmin Alpha Fetoprotein HEATHER Screen NEGATIVE Anti-Mitochondrial Ab NEGATIVE Anti-Smooth Muscle Ab <20 Hepatitis A IgM Ab Nonreactive Hep Bs Antigen Negative Hep Bs Antibody NONREACTIVE Hep B Core Total A b Nonreactive Hepatitis C Ab (EI A) Nonreactive HIV 1&2 Ab/P24 Ag 4thGn Nonreactive 08/27/22 07:11 WBC Hgb Hct Plt Count Estimated GFR > 60 Ferritin Total Bilirubin 1.1 H Direct Bilirubin 0.2 GGT AST 32 ALT 26 Alkaline Phosphata se 100 Ceruloplasmin Alpha Fetoprotein HEATHER Screen Anti-Mitochondrial Ab Anti-Smooth Muscle Ab Hepatitis A IgM Ab Hep Bs Antigen Hep Bs Antibody Hep B Core Total A b Hepatitis C Ab (EI A) HIV 1&2 Ab/P24 Ag 4thGn ULTRASOUND OF THE ABDOMEN WITH ELASTOGRAPHY (F-0) 12/02/21 IMPRESSION: 1. Hepatic steatosis with few scattered echogenic lesions likely artifact or fatty infiltration. ? 2. Liver elastography: Median liver stiffness measures 1.25 m/s suggestive of high probably normal. TODAY'S VISIT Jamaican #declines WE review the above results and given the very mild fatty liver this can be followed by his PCP. He has on and off CIC and he is bothered by a burning inside. This is worse when he comes home from the gym. He is also having some rectal bleeding intermittently. He has a hx of external thrombosed hemorrhoid that were addressed in the past by Dr. Degroot. HE has been using OTC prep H and a rx'ed hydrocortisone cream w/o relief. He is also was instructed about ice packs and sitz baths, but since he wants something else I will refer him to surgery for consideration. He only takes colace for his constipation and he feels this is sufficient. NO FHX of crc or polyps. He had a negative scope in 2015. There are no prior problems with anesthesia or sedation. Denies any cardiac or respiratory problems. NO ID problems. NO known FHX crc or polyps. [facility] Medical History (Updated 01/12/23 @ 16:29 by SURJIT Vo) Bleeding hemorrhoids Cervical radiculopathy Chronic fatigue Disc degeneration, lumbar Essential hypertension External thrombosed hemorrhoids Hearing loss Hematuria Lab test positive for detection of COVID-19 virus Left shoulder pain Lower back pain Mixed hyperlipidemia Pulmonary embolism Transaminitis Surgical History H/O neck surgery History of colonoscopy History of rectal polypectomy Family History Father Dementia Mother Hypertension Diabetes Social History Housing: Apartment Alcohol intake: current Alcohol intake frequency: holidays/special occasions only Alcohol type: beer and hard liquor Patient Tobacco Use Status: Former Tobacco user e-Cigarette/Vaping Use: Never Used Second Hand Smoke Exposure: Yes service: No Current occupational status: employed Current occupational exposures/hazards: No Cognitive needs: No Hearing needs: No Vision needs: Yes Review of Systems Const Denies fatigue, Denies fever(s), Denies night sweats, Denies poor appetite and Denies weight loss ENT Reports Normal hearing present, Denies dental pain, Denies dysphagia, Denies hearing loss, Denies mouth pain, Denies odynophagia, Denies throat swelling, Denies tongue swelling and Reports other (Dentition adequate) Card Reports no additional complaints Resp Reports no additional complaints GI Denies abdominal pain, Denies melena, Denies bloating, Reports hematochezia, Reports constipation, Denies GI cramping, Denies dysphagia, Denies excessive flatus, Denies early satiety, Denies heartburn, Denies diarrhea, Denies nausea, Denies odynophagia, Denies vomiting and Denies hematemesis Skin/Breast Denies pruritus, Denies lesions, Denies rash and Denies jaundice Neuro Reports Normal hearing present and Denies Abnormal speech present Endo Denies fatigue Aller/Immun Denies throat swelling and Denies tongue swelling Physical Exam Vital Signs: Last Vital Signs Pulse 65 12/23/22 16:01 BP 159/95 H 12/23/22 16:01 BMI result Body Mass Index 28.1 Const General: cooperative, no acute distress, well developed and well groomed Nutritional Appearance: average body habitus and well nourished Orientation/consciousness: oriented to person, oriented to place and oriented to time Limitations: No language barrier HEENT Head: Yes normocephalic and Yes atraumatic Eyes General: appearance normal, both eyes and all related structures Pupils: Equal, round and reactive pupils present Neck Neck: Yes normal visual inspection and Yes no lymphadenopathy Thyroid: Thyroid normal Resp Effort & Inspection: normal respiratory effort and able to speak in complete sentences Auscultation: clear to auscultation bilaterally Cardio Rate: regular rate Rhythm: regular rhythm Heart sounds: Normal, physiologic split S2 sound present Peripheral pulses: radial pulses present and posterior tibial pulses present GI Inspection: No distended and No Abdominal panniculus present Palpation (GI): Soft to palpation, nontender, no guarding, not rigid and No hepatosplenomegaly present Percussion: Yes normal to percussion Auscultation: normal bowel sounds Rectal Exam - Male: Yes deferred Skin General skin exam: no rashes or lesions noted, turgor normal, skin not dry, no jaundice, No spider nevi and no striae Rashes: no rashes Nails: normal Neuro General: oriented to person, oriented to place and oriented to time Cranial nerves: Yes Equal, round and reactive pupils present and Yes Normal hearing present Speech: No Abnormal speech present Extrem General: Yes normal to inspection, No clubbing, No cyanosis and No edema Psych Appearance: grossly normal and well kempt Mental Status: mental status grossly normal Speech and movement: Normal speech and movement present Affect: normal affect Attitude: cooperative Thought process: Normal thought process present and not confabulating Thought content: Normal thought content present Insight: Limited insight present (Psych) Judgement: Limited judgement present (Psych) Results Reviewed Results Reviewed: Laboratory Tests 09/18/21 11/02/21 11/02/21 07:41 16:40 16:40 WBC 5.8 Hgb 15.3 Hct 44.4 Plt Count 268 Estimated GFR Ferritin 189 Total Bilirubin Direct Bilirubin GGT 44 AST ALT Alkaline Phosphatase Ceruloplasmin 26 Alpha Fetoprotein 1.5 HEATHER Screen Anti-Mitochondrial Ab Anti-Smooth Muscle Ab Hepatitis A IgM Ab Hep Bs Antigen Hep Bs Antibody Hep B Core Total Ab Hepatitis C Ab (EIA) HIV 1&2 Ab/P24 Ag 4thGn 11/02/21 11/02/21 11/02/21 16:40 16:40 16:40 WBC Hgb Hct Plt Count Estimated GFR Ferritin Total Bilirubin Direct Bilirubin GGT AST ALT Alkaline Phosphatase Ceruloplasmin Alpha Fetoprotein HEATHER Screen NEGATIVE Anti-Mitochondrial Ab NEGATIVE Anti-Smooth Muscle Ab <20 Hepatitis A IgM Ab Nonreactive Hep Bs Antigen Negative Hep Bs Antibody NONREACTIVE Hep B Core Total Ab Nonreactive Hepatitis C Ab (EIA) Nonreactive HIV 1&2 Ab/P24 Ag 4thGn Nonreactive 08/27/22 07:11 WBC Hgb Hct Plt Count Estimated GFR > 60 Ferritin Total Bilirubin 1.1 H Direct Bilirubin 0.2 GGT AST 32 ALT 26 Alkaline Phosphatase 100 Ceruloplasmin Alpha Fetoprotein HEATHER Screen Anti-Mitochondrial Ab Anti-Smooth Muscle Ab Hepatitis A IgM Ab Hep Bs Antigen Hep Bs Antibody Hep B Core Total Ab Hepatitis C Ab (EIA) HIV 1&2 Ab/P24 Ag 4thGn ULTRASOUND OF THE ABDOMEN WITH ELASTOGRAPHY (F-0) 12/02/21 IMPRESSION: 1. Hepatic steatosis with few scattered echogenic lesions likely artifact or fatty infiltration. ? 2. Liver elastography: Median liver stiffness measures 1.25 m/s suggestive of high probably normal. Assessment & Plan Assessment & Plan (1) Constipation: Code(s): K59.00 - Constipation, unspecified Plan: Jamaican #declines WE review the above results and given the very mild fatty liver this can be followed by his PCP. He has on and off CIC and he is bothered by a burning inside. This is worse when he comes home from the gym. He is also having some rectal bleeding intermittently. He has a hx of external thrombosed hemorrhoid that were addressed in the past by Dr. Degroot. HE has been using OTC prep H and a rx'ed hydrocortisone cream w/o relief. He is also was instructed about ice packs and sitz baths, but since he wants something else I will refer him to surgery for consideration. He only takes colace for his constipation and he feels this is sufficient. NO FHX of crc or polyps. He had a negative scope in 2014. There are no prior problems with anesthesia or sedation. Denies any cardiac or respiratory problems. NO ID problems. NO known FHX crc or polyps. (2) Bright red blood per rectum: Code(s): K62.5 - Hemorrhage of anus and rectum (3) OLIVA (nonalcoholic steatohepatitis): Comment: Baseline Laboratory Tests GIVEN THE MILDNESS OF THE FATTY LIVER THIS CAN BE FOLLOWED BY THE PRIMARY CARE PROVIDER 09/18/21 Plt Count 268 Ferritin 189 GGT 44 the Ceruloplasmin 26 Alpha Fetoprotein 1.5 HEATHER Screen NEGATIVE Anti-Mitochondrial Ab NEGATIVE Anti-Smooth Muscle Ab <20 Hepatitis A IgM Ab Nonreactive Hep Bs Antigen Negative Hep Bs Antibody NONREACTIVE Hep B Core Total Ab Nonreactive Hepatitis C Ab (EIA) Nonreactive HIV 1&2 Ab/P24 Ag 4thGn Nonreactive Total Bilirubin 1.1 H Direct Bilirubin 0.2 the AST 32 ALT 26 Alkaline Phosphatase 100 The ULTRASOUND OF THE ABDOMEN WITH ELASTOGRAPHY (F-0) 12/02/21 IMPRESSION: 1. Hepatic steatosis with few scattered echogenic lesions likely artifact or fatty infiltration. ? 2. Liver elastography: Median liver stiffness measures 1.25 m/s suggestive of high probably normal. Code(s): K75.81 - Nonalcoholic steatohepatitis (OLIVA) (4) Pre-op examination: Code(s): Z01.818 - Encounter for other preprocedural examination (5) Bleeding hemorrhoids: Code(s): K64.9 - Unspecified hemorrhoids Orders: Referrals General Surgery Referral K64.9 - Unspecified hemorrhoids Medications: New peg 3350-electrolytes 236-22.74-6.74 -5.86 gram (Golytely) until fecal effluent is clear; do not exceed a total volume of 2,000 mL 240 mL PO Q10M 4,000 mL 0RF 1 day Z12.11 - Encounter for screening for malignant neoplasm of colon Coding Level of Care Code Est Pt Level 4 (23947) Diagnoses Constipation K59.00 Bright red blood per rectum K62.5 OLIVA (nonalcoholic steatohepatitis) K75.81 Pre-op examination Z01.818 Bleeding hemorrhoids K64.9
== END 2022-12-23 16:31 | disposition home or self-care (01) ==
PROVIDERS: PCP Internal Medicine; Visit Provider Nurse Practitioner
DX: K59.00 Constipation, unspecified (principal); K62.5 Hemorrhage of anus and rectum; K75.81 Nonalcoholic steatohepatitis (NASH); Z01.818 Encounter for other preprocedural examination; K64.9 Unspecified hemorrhoids
CPT/HCPCS: 99214

== ENCOUNTER → 2022-12-23 15:59 | Outpatient (BNVA) | payer OTHER, SELFPAY | PROVIDERS: PCP Internal Medicine; Visit Provider Nurse Practitioner | DX: Z01.818 Encounter for other preprocedural examination (principal); K59.00 Constipation, unspecified; K62.5 Hemorrhage of anus and rectum; K75.81 Nonalcoholic steatohepatitis (NASH); K64.9 Unspecified hemorrhoids | CPT/HCPCS: 99212 ==

== ENCOUNTER 2022-12-29 15:24 | Outpatient (AMB) | payer OTHER, SELFPAY ==
--- NOTE | 2022-12-29 15:31 | MHC.OFFVIS ---
Intake Vital Signs 12/29/22 15:41 Height 5 ft 4 in Weight 165 lb BMI 28.3 BP 178/106 H Blood Pressure Location Lt brachial Position Sitting Pulse 67 Intake Visit Reasons: hemorrhoids Intake Note: Patient is seen in office for evaluation and treatment of hemorrhoids. 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 Required: No Accompanied by: Self / Same As Patient Allergies prochlorperazine [From COMPAZINE] Allergy (Intermediate, Verified 12/29/22 15:41) DIFFICULTY BREATHING gabapentin Allergy (Mild, Verified 12/29/22 15:41) depression Medication List - Last Reconciled 12/29/22 by Calos Crowe MD cholecalciferol (vitamin D3) 50 mcg PO DAILY cyanocobalamin (vitamin B-12) 2,500 mcg PO DAILY docusate sodium (Colace) 100 mg PO DAILY PRN 30 days hydrocortisone 1% (Preparation H Hydrocortisone) 1 appl topical TID PRN omega 2-mie-guo-fish oil 1,000 mg (120 mg-180 mg) (Fish Oil) 1 cap PO DAILY peg 3350-electrolytes 236-22.74-6.74 -5.86 gram (Golytely) 240 mL PO Q10M 1 day HPI hemorrhoids HPI Details 57-year-old male referred by GI because of bleeding hemorrhoids. He is being seen by GI for a follow-up colonoscopy and had mentioned that he has had some blood per rectum with bowel movements. He does admit to a history of chronic constipation He says he does not bleed every day but he would see this periodically whenever he is constipated on the toilet bowl as well as on the toilet paper He denies pain with bowel movements. He does state that he had tried some different creams and 1 of the cream that he uses has helped a lot. [facility] Medical History (Updated 12/29/22 @ 16:07 by Calos Crowe MD) Bleeding hemorrhoids Cervical radiculopathy Chronic fatigue Disc degeneration, lumbar Essential hypertension External thrombosed hemorrhoids Hearing loss Hematuria Lab test positive for detection of COVID-19 virus Left shoulder pain Lower back pain Mixed hyperlipidemia Pulmonary embolism Transaminitis Surgical History H/O neck surgery History of colonoscopy History of rectal polypectomy Family History Father Dementia Mother Hypertension Diabetes Social History Housing: Apartment Alcohol intake: current Alcohol intake frequency: holidays/special occasions only Alcohol type: beer and hard liquor Patient Tobacco Use Status: Former Tobacco user e-Cigarette/Vaping Use: Never Used Second Hand Smoke Exposure: Yes service: No Current occupational status: employed Current occupational exposures/hazards: No Cognitive needs: No Hearing needs: No Vision needs: Yes Review of Systems Const Denies chills and Denies fever(s) Card Denies chest pain, Denies dyspnea and Denies dyspnea on exertion Resp Denies cough, Denies dyspnea and Denies dyspnea on exertion GI Reports hematochezia, Denies change in bowel habits and Reports constipation Denies hematuria and Denies difficulty urinating Musc Denies back pain and Denies limited range of motion Neuro Denies focal weakness and Denies convulsions Psych Denies depression and Denies mood swings Physical Exam Vital Signs: Last Vital Signs Pulse 67 12/29/22 15:41 BP 178/106 H 12/29/22 15:41 BMI result Body Mass Index 28.3 Const General: comfortable and no acute distress Orientation/consciousness: patient oriented x3 Neck Neck: Yes no lymphadenopathy Resp Auscultation: clear to auscultation bilaterally Cardio Rhythm: regular rhythm GI Other: Rectal exam shows external hemorrhoids, non bulky, on the left side Palpation (GI): Soft to palpation, nontender and no guarding Neuro General: patient oriented x3 Office Procedures Anoscopy He was in nargis-knife position. The anoscope was gently inserted. A full examination of the anal canal was done. He did have prominent internal external hemorrhoids on the left. He had smaller hemorrhoids on the right. There were no other lesions. There was no fissure. There was no induration on digital exam. [id number] Assessment & Plan Assessment & Plan (1) Bleeding hemorrhoids: Code(s): K64.9 - Unspecified hemorrhoids Plan: He describes passage of bright blood per rectum on wiping as well as on the toilet bowl with bowel movements. However, he says that this happens usually when he is constipated. He says he has tried 1 cream which helped a lot he states that his bleeding has improved significantly. Anoscopy shows mixed hemorrhoidal columns. He does understand the option of hemorrhoidectomy but he says that he feels that this has improved. He is scheduled to undergo colonoscopy this year with GI. I told him that if he has significant symptoms, should come back to the office to be re-evaluated for hemorrhoidectomy. I also will prescribe him Metamucil for his chronic constipation. Medications: New psyllium husk (Metamucil) mix into at least 8 oz of water or juice before administering 1 tbsp PO BID 660 grams 2RF Coding Level of Care Code New Pt Level 3 (05937) Diagnoses Bleeding hemorrhoids K64.9 CPT Codes Details - CPT: 46038-Qrrlougd ([id number])
[2022-12-29 15:41] VITALS: BP 178/106; PULSE 67; BMI 28.3
== END 2022-12-29 16:05 | disposition home or self-care (01) ==
PROVIDERS: PCP Internal Medicine; Visit Provider Surgery
DX: K64.9 Unspecified hemorrhoids (principal)
CPT/HCPCS: 46600; 99203

== ENCOUNTER → 2022-12-29 15:24 | Outpatient (BNVA) | payer OTHER, SELFPAY | PROVIDERS: PCP Internal Medicine; Visit Provider Surgery | DX: K64.9 Unspecified hemorrhoids (principal) | CPT/HCPCS: 46600; 99202 ==

== ENCOUNTER 2023-02-25 07:08 | Outpatient (REF) | payer OTHER, SELFPAY ==
[2023-02-25 08:00] LABS: Cholesterol 157 mg/dL (<200); HDL Cholesterol 44 mg/dL (>40); LDL Cholesterol Calculated 96 mg/dL (<100); Triglycerides 87 mg/dL (<150)
== END 2023-02-25 07:09 | disposition home or self-care (01) ==
LOC: HO.LAB 07:08
PROVIDERS: PCP Internal Medicine; Visit Provider Internal Medicine
DX: E78.5 Hyperlipidemia, unspecified (principal)
CPT/HCPCS: 36415; 80061

== ENCOUNTER 2023-02-28 16:43 | Outpatient (AMB) | payer OTHER, SELFPAY ==
[2023-02-28 16:46] VITALS: BP 160/100; BMI 26.8
--- NOTE | 2023-02-28 16:46 | A.OFFPC_ITS ---
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 Accompanied by: Self / Same As Patient Allergies prochlorperazine [From COMPAZINE] Allergy (Intermediate, Verified 02/28/23 17:22) DIFFICULTY BREATHING gabapentin Allergy (Mild, Verified 02/28/23 17:22) depression Medication List - Last Reconciled 02/28/23 by Seble Oscar MD cholecalciferol (vitamin D3) 50 mcg PO DAILY cyanocobalamin (vitamin B-12) 2,500 mcg PO DAILY docusate sodium (Colace) 100 mg PO DAILY PRN 30 days hydrocortisone 1% (Preparation H Hydrocortisone) 1 appl topical TID PRN omega 6-oog-mkp-fish oil 1,000 mg (120 mg-180 mg) (Fish Oil) 1 cap PO DAILY psyllium husk (Metamucil) 1 tbsp PO BID Tobacco use date assessed: 12/09/22 Dental Screening Dental Screen Date: 02/28/23 Did you have a dental visit in the last 12 months?: Yes Did you have a dental problem in the last 6 months where you did not have access to dental care?: No Was dental information given to patient?: Patient has dentist HPI HPI Comments History of Present Illness Details This is a 57-year-old male with hypertension, cervical radiculopathy, constipation and low vitamin-D that comes today for follow-up on his conditions. Blood pressure has been elevated and he has try to do it low-salt diet. I will start him on amlodipine. Blood pressure will be recheck in 3 weeks by nurse navigator. Still has occasional neck pain due to cervical radiculopathy aggravated by certain movements. Currently does not take any medication for it. Constipation has been stable with medications. On vitamin-D supplements for his low vitamin-D. He is accompanied by . [facility] Medical History (Updated 02/28/23 @ 17:36 by Seble Oscar MD) Bleeding hemorrhoids External thrombosed hemorrhoids Transaminitis Hearing loss Left shoulder pain Cervical radiculopathy Hematuria Lower back pain Disc degeneration, lumbar Lab test positive for detection of COVID-19 virus Pulmonary embolism Chronic fatigue Essential hypertension Mixed hyperlipidemia Surgical History History of colonoscopy H/O neck surgery History of rectal polypectomy Family History Father Dementia Mother Hypertension Diabetes Social History Housing: Apartment Alcohol intake: current Alcohol intake frequency: holidays/special occasions only Alcohol type: beer and hard liquor Patient Tobacco Use Status: Former Tobacco user e-Cigarette/Vaping Use: Never Used Second Hand Smoke Exposure: Yes service: No Current occupational status: employed Current occupational exposures/hazards: No Cognitive needs: No Hearing needs: No Vision needs: Yes Questionnaire Thrive Questionnaire Date Thrive assessed: 08/30/22 GIA-7 AMB Questionnaire IGA-7 Date GIA - 7 assessed: 08/30/22 Source: Developed by Drs. Jimmy Guerra, Rakel Pelayo, Kamran White and colleagues, with an educational eber from [employer] Review of Systems Const All systems reviewed & are unremarkable except as noted in HPI and below Eyes Reports no additional complaints, Denies change in vision and Denies other visual disturbances Card Denies chest pain at rest, Denies chest pain with activity, Denies edema, Denies irregular heart rhythm, Denies claudication, Denies dyspnea, Denies dyspnea on exertion, Denies orthopnea, Denies paroxysmal nocturnal dyspnea and Denies slow heart rate Resp Denies cough, Denies dyspnea and Denies dyspnea on exertion GI Denies abdominal pain, Denies change in bowel habits, Denies excessive flatus, Denies nausea and Denies vomiting Denies urinary hesitancy, Denies urinary incontinence and Denies urinary urgency Musc Denies abnormal gait, Denies atrophy, Denies deformity and Denies limited range of motion Skin/Breast Denies bleeding lesions, Denies changing lesions and Denies rash Neuro Denies abnormal gait and Denies lack of coordination Physical exam (Primary Care) Vital Signs: Last Vital Signs BP 160/100 H 02/28/23 16:46 BMI result Body Mass Index 26.8 Tobacco/Smoking Status: Tobacco use Status Tobacco use date assessed 12/09/22 02/28/23 16:50 Patient Tobacco Use Status Former Tobacco user 02/28/23 16:50 e-Cigarette/Vaping Use Never Used 02/28/23 16:50 Thrive Assessment: Date of Thrive Assessment Date Thrive assessed 08/30/22 02/28/23 16:50 Eyes General: appearance normal, both eyes and all related structures Eyelids: Yes eyelids normal Conjunctivae: conjunctivae normal Neck Neck: Yes normal visual inspection and Yes supple Resp Effort & Inspection: normal respiratory effort Auscultation: clear to auscultation bilaterally Cardio Jugular venous distension: no JVD Rate: regular rate Rhythm: regular rhythm Heart sounds: S1 normal heart sound present and S2 normal heart sound present Extrem General: Yes full ROM Office Procedures Flu Questionnaire Does the patient have a severe egg allergy?: No Does the patient have severe life threatening allergies?: No Does the patient have a fever or illness today?: No Has the patient ever had Guillain-[place] Syndrome?: No Has the patient ever had any past reaction to a flu shot?: No Immunizations flu vacc [id number] 6mos up(PF) 60 mcg(15 mcgx4)/0.5 mL IM syringe Performing Provider: Seble Oscar MD Performing Location: [facility] Administered by: PRINCESS Guan on 02/28/23 17:40 Dose Route Admin Location Dispensed Lot Number Expiration Date NDC Ceiling Cleaner 0.5 mL IM Right Deltoid 0.5 mL [id number] 11/26/23 [id number] [employer] VIS Given Date VIS Provided VIS Publication Date 02/28/23 Single Vaccine 21 Eligibility Eligibility Date Funding Source Not [facility] Eligible 02/28/23 Private Assessment and Plan Assessment & Plan (1) Essential hypertension: Code(s): I10 - Essential (primary) hypertension Plan: Start amlodipine. Blood pressure goal is equal or less than 130/80. Recheck blood pressure in 3 weeks by nurse navigator. (2) Constipation: Code(s): K59.00 - Constipation, unspecified Plan: Continue docusate as needed. (3) Cervical radiculopathy: Code(s): M54.12 - Radiculopathy, cervical region Plan: Continue exercises at home. (4) Hypovitaminosis D: Code(s): E55.9 - Vitamin D deficiency, unspecified Plan: Continue vitamin-D supplement. Orders: Orders Influenza [id number] Immunization 02/28/23 Z23 - Encounter for immunization Referrals Podiatry Referral L98.9 - Disorder of the skin and subcutaneous tissue, unspecified Medications: New amlodipine 10 mg PO DAILY 90 tabs 1RF 90 days I10 - Essential (primary) hypertension Coding Level of Care Code Est Pt Level 4 (70061) Diagnoses Essential hypertension I10 Constipation K59.00 Cervical radiculopathy M54.12 Hypovitaminosis D E55.9 Time Spent (min) 22
[2023-03-01 07:39] VITALS: BP 160/90
== END 2023-02-28 17:41 | disposition home or self-care (01) ==
PROVIDERS: Visit Provider Internal Medicine
DX: Z23 Encounter for immunization (principal)
CPT/HCPCS: 90471; 90686; 99214

== ENCOUNTER 2023-09-12 16:28 | Outpatient (AMB) | payer OTHER, SELFPAY ==
[2023-09-12 16:32] VITALS: BP 140/80; BMI 27.6
--- NOTE | 2023-09-12 16:32 | MHC.PC.OV ---
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: No Accompanied by: Self / Same As Patient Allergies prochlorperazine [From COMPAZINE] Allergy (Intermediate, Verified 09/12/23 16:50) DIFFICULTY BREATHING gabapentin Allergy (Mild, Verified 09/12/23 16:50) depression Medication List - Last Reconciled 09/12/23 by Seble Oscar MD amlodipine 10 mg PO DAILY 90 days cholecalciferol (vitamin D3) 50 mcg PO DAILY cyanocobalamin (vitamin B-12) 2,500 mcg PO DAILY docusate sodium (Colace) 100 mg PO DAILY PRN 30 days hydrocortisone 1% (Preparation H Hydrocortisone) 1 appl topical TID PRN omega 0-wog-tzc-fish oil 1,000 mg (120 mg-180 mg) (Fish Oil) 1 cap PO DAILY psyllium husk (Metamucil) 1 tbsp PO BID Tobacco use date assessed: 09/12/23 Dental Screening Dental Screen Date: 09/12/23 Did you have a dental visit in the last 12 months?: Yes Did you have a dental problem in the last 6 months where you did not have access to dental care?: No Was dental information given to patient?: Patient has dentist HPI HPI Comments History of Present Illness Details This is a 58-year-old male that comes for his physical exam. Last colonoscopy was 2015 and has a colonoscopy scheduled for 12/15/2023. Has elevated blood pressure but he admits not being compliant with amlodipine. Denies any chest pain or shortness of breath. Complains of left shoulder pain but has full active range of motion. Would like physical therapy. [facility] Medical History (Updated 09/12/23 @ 17:23 by Seble Oscar MD) Bleeding hemorrhoids External thrombosed hemorrhoids Transaminitis Hearing loss Left shoulder pain Cervical radiculopathy Hematuria Lower back pain Disc degeneration, lumbar Lab test positive for detection of COVID-19 virus Pulmonary embolism Chronic fatigue Essential hypertension Mixed hyperlipidemia Surgical History History of colonoscopy H/O neck surgery History of rectal polypectomy Family History (Updated 09/12/23 @ 16:58 by Seble Oscar MD) Father Dementia Mother Hypertension Diabetes Social History Housing: Apartment Alcohol intake: current Alcohol intake frequency: holidays/special occasions only Alcohol type: beer and hard liquor Patient Tobacco Use Status: Former Tobacco user e-Cigarette/Vaping Use: Never Used Second Hand Smoke Exposure: Yes service: No Current occupational status: employed Current occupational exposures/hazards: No Cognitive needs: No Hearing needs: No Vision needs: Yes Questionnaire PHQ-9 Over the last 2 weeks, how often have you been bothered by any of the following problems? 1. Little interest or pleasure in doing things: not at all 2. Feeling down, depressed, or hopeless: not at all 3. Trouble falling or staying asleep, or sleeping too much: not at all 4. Feeling tired or having little energy: not at all 5. Poor appetite or overeating: not at all 6. Feeling bad about yourself - or that you are a failure or have let yourself or your family down: not at all 7. Trouble concentrating on things, such as reading the newspaper or watching television: not at all 8. Moving or speaking so slowly that other people could have noticed. Or the opposite - being so fidgety or restless that you have been moving around a lot more than usual: not at all 9. Thoughts that you would be better off or of hurting yourself in some way: not at all Total score: 0 Depression Screening Interpretation: Negative Depression Screening Done: Yes 83443 - PHQ-9 Billing: Yes Source: Developed by Drs. Jimmy Guerra, Rakel Pelayo, Kamran White and colleagues, with an educational eber from [employer]. Thrive Questionnaire Date Thrive assessed: 09/12/23 I am a: Patient What is your living situation today?: I have a steady place to live Within the past 12 months, did the food you bought not last and you didn't have the money to get more?: Never true Within the past 12 months, did you worry whether your food would run out before you got money to buy more?: Never true Do you have trouble paying for medicines?: No Do you have trouble getting transportation to medical appointments?: No Do you have trouble paying your heating and electricity bill?: No Do you have trouble taking care of your child, family member or friend?: No Do you have trouble with day-to-day activities such as bathing, preparing meals, shopping, managing finances, etc.?: No Are you currently unemployed and looking for a job?: No Are you interested in more education?: No Please select the resources that you would like help with: None Currently or been in a relationship where the following occur: no concerns reported THRIVE Score: 0 AUDIT C Alcohol Use Questionnaire (AUDIT-C) 1. How often do you have a drink containing alcohol?: Monthly or less 2. How many drinks containing alcohol do you have on a typical day when you are drinking?: 1 or 2 3. How often do you have six or more drinks on one occasion?: Never Total Score: 1 Score Reviewed/Action Taken: No GIA-7 AMB Questionnaire GIA-7 Date GIA - 7 assessed: 09/12/23 Feeling nervous, anxious, or on edge: 0 = Not at all Not being able to stop or control worryin = Not at all Worrying too much about different things: 0 = Not at all Trouble relaxin = Not at all Being so restless that it is hard to sit still: 0 = Not at all Becoming easily annoyed or irritable: 0 = Not at all Feeling afraid as if something awful might happen: 0 = Not at all Total GIA-7 score (0-4 normal; 5-9 mild; 10-14 moderate; 15-21 severe): 0 Source: Developed by Drs. Jimmy Guerra, Rakel Pelayo, Kamran White and colleagues, with an educational eber from [employer]. GIA-7 Assessment Billing GIA-7 Assessment Tool: GIA-7 Assessment 07122 Review of Systems Const All systems reviewed & are unremarkable except as noted in HPI and below Eyes Reports no additional complaints, Denies change in vision and Denies other visual disturbances Card Denies chest pain at rest, Denies chest pain with activity, Denies edema, Denies irregular heart rhythm, Denies claudication, Denies dyspnea, Denies dyspnea on exertion, Denies orthopnea, Denies paroxysmal nocturnal dyspnea and Denies slow heart rate Resp Denies cough, Denies dyspnea and Denies dyspnea on exertion GI Denies abdominal pain, Denies change in bowel habits, Denies excessive flatus, Denies nausea and Denies vomiting Denies urinary hesitancy, Denies urinary incontinence and Denies urinary urgency Physical exam (Primary Care) Vital Signs: Last Vital Signs BP 140/80 H 09/12/23 16:32 BMI result Body Mass Index 27.6 Tobacco/Smoking Status: Tobacco use Status Tobacco use date assessed 09/12/23 09/12/23 16:38 Patient Tobacco Use Status Former Tobacco user 09/12/23 16:38 e-Cigarette/Vaping Use Never Used 09/12/23 16:38 PHQ-9: PHQ-9 Score PHQ-9: Total score 0 09/12/23 16:52 Depression Screening Interpretation: Negative Thrive Assessment: Date of Thrive Assessment Date Thrive assessed 09/12/23 09/12/23 16:38 Currently or been in a relationship where the following occur: no concerns reported Const Orientation/consciousness: patient oriented x3 [facility] Head: Yes normal to inspection, Yes normocephalic and Yes atraumatic Ears: external ears normal Eyes General: appearance normal, both eyes and all related structures Eyelids: Yes eyelids normal Conjunctivae: conjunctivae normal Neck Neck: Yes normal visual inspection and Yes supple Resp Effort & Inspection: normal respiratory effort Auscultation: clear to auscultation bilaterally Cardio Jugular venous distension: no JVD Rate: regular rate Rhythm: regular rhythm Heart sounds: S1 normal heart sound present and S2 normal heart sound present GI Inspection: Yes normal to inspection Palpation (GI): Soft to palpation and nontender Auscultation: normal bowel sounds Skin General skin exam: no rashes or lesions noted Neuro General: patient oriented x3 and no focal motor deficits Extrem General: Yes full ROM Psych Appearance: grossly normal Assessment and Plan Assessment & Plan (1) Physical exam: Code(s): Z00.00 - Encounter for general adult medical examination without abnormal findings Plan: Repeat in a year. Orders: Orders Vitamin B12 and Folate Today E53.8 - Deficiency of other specified B group vitamins Comprehensive [place]. Panel Fast Today Z00.00 - Encounter for general adult medical examination without abnormal findings Lipid Panel Today E78.5 - Hyperlipidemia, unspecified Vitamin D 25-OH Total Today E55.9 - Vitamin D deficiency, unspecified PT Evaluation and Treatment Today M25.512 - Pain in left shoulder Coding Level of Care Code Est Pt Prev Care 40-64y(20619) Diagnoses Physical exam Z00.00 Additional Codes GIA-7 Assessment Billing - GIA-7 Assessment Tool: GIA-7 Assessment 88842 ([id number]) Time Spent (min) 30
== END 2023-09-12 17:05 | disposition home or self-care (01) ==
PROVIDERS: PCP Internal Medicine; Visit Provider Internal Medicine
DX: Z00.00 Encounter for general adult medical examination without abnormal findings (principal)
CPT/HCPCS: 99396

== ENCOUNTER 2023-09-23 07:24 | Outpatient (REF) | payer OTHER, SELFPAY ==
[2023-09-23 08:35] LABS: Alanine Aminotransferase 28 U/L (0-40); Albumin Level 4.1 g/dL (3.5-5.0); Alkaline Phosphatase 77 U/L (39-117); Anion Gap 10 (12-20); Aspartate Amino Transferase 36 U/L (5-37); Blood Urea Nitrogen 15 mg/dL (9-16); Calcium 9.4 mg/dL (8.4-10.2); Carbon Dioxide 31 mmol/L (22-29); Chloride 106 mmol/L (96-108); Cholesterol 186 mg/dL (<200); Estimated Glomerular Filt Rate > 60; Glucose Fasting 106 mg/dL (60-99); HDL Cholesterol 46 mg/dL (>40); LDL Cholesterol Calculated 125 mg/dL (<100); Potassium 3.9 mmol/L (3.3-5.1); Sodium 143 mmol/L (135-145); Total Protein 7.3 g/dL (6.5-8.0); Triglycerides 78 mg/dL (<150)
[2023-09-23 08:53] LABS: Folate 12.2 ng/mL (> or = 4.0); Vitamin B12 1125 pg/mL (200-900)
[2023-09-23 08:55] LABS: Vitamin D 25-OH Total 63.5 ng/mL (>30)
== END 2023-09-23 07:25 | disposition home or self-care (01) ==
LOC: HO.LAB 07:24
PROVIDERS: PCP Internal Medicine; Visit Provider Internal Medicine
DX: Z00.00 Encounter for general adult medical examination without abnormal findings (principal); E78.5 Hyperlipidemia, unspecified; E53.8 Deficiency of other specified B group vitamins; E55.9 Vitamin D deficiency, unspecified
CPT/HCPCS: 36415; 80053; 80061; 82306; 82607; 82746

== ENCOUNTER 2024-03-13 16:33 | Outpatient (AMB) | payer OTHER, SELFPAY ==
--- NOTE | 2024-03-13 16:37 | MHC.PC.OV ---
Vital Signs 03/13/24 16:38 Height 5 ft 4 in Weight 160 lb BMI 27.5 BP 136/80 Blood Pressure Location Lt brachial Position Sitting Intake Visit Reasons: bp,lipids, needs 30 minutes Intake Note: Patient here for a follow up bp, lipids Legal Consultant Required: No Accompanied by: Self / Same As Patient Allergies prochlorperazine [From COMPAZINE] Allergy (Intermediate, Verified 03/13/24 16:44) DIFFICULTY BREATHING gabapentin Allergy (Mild, Verified 03/13/24 16:44) depression Medication List - Last Reconciled 03/13/24 by Seble Oscar MD amlodipine 5 mg PO DAILY 90 days cholecalciferol (vitamin D3) 50 mcg PO DAILY cyanocobalamin (vitamin B-12) 2,500 mcg PO DAILY docusate sodium (Colace) 100 mg PO DAILY PRN 30 days hydrocortisone 1% (Preparation H Hydrocortisone) 1 appl topical TID PRN omega 2-vkl-rvi-fish oil 1,000 mg (120 mg-180 mg) (Fish Oil) 1 cap PO DAILY psyllium husk (Metamucil) 1 tbsp PO BID Tobacco use date assessed: 09/12/23 Dental Screening Dental Screen Date: 09/12/23 HPI HPI Comments History of Present Illness Details This is a 58-year-old male with hypertension that comes today complaining of fatigue and tiredness that has been present for few months, neck pain and left shoulder pain. He has cervical radiculopathy and will be referred to physical therapy for his neck and his left shoulder. Has full active range of motion. Denies recent trauma. Blood pressure has been stable and he has not take amlodipine in the few months. [facility] Medical History Bleeding hemorrhoids External thrombosed hemorrhoids Transaminitis Hearing loss Left shoulder pain Cervical radiculopathy Hematuria Lower back pain Disc degeneration, lumbar Lab test positive for detection of COVID-19 virus Pulmonary embolism Chronic fatigue Essential hypertension Mixed hyperlipidemia Surgical History History of colonoscopy H/O neck surgery History of rectal polypectomy Family History Father Dementia Mother Hypertension Diabetes Social History Housing: Apartment Alcohol intake: current Alcohol intake frequency: holidays/special occasions only Alcohol type: beer and hard liquor Patient Tobacco Use Status: Former Tobacco user e-Cigarette/Vaping Use: Never Used Second Hand Smoke Exposure: Yes service: No Current occupational status: employed Current occupational exposures/hazards: No Cognitive needs: No Hearing needs: No Vision needs: Yes Questionnaire Thrive Questionnaire Date Thrive assessed: 09/12/23 GIA-7 AMB Questionnaire GIA-7 Date GIA - 7 assessed: 09/12/23 Source: Developed by Drs. Jimmy Guerra, Rakel Pelayo, Kamran White and colleagues, with an educational eber from [employer]. Review of Systems Const All systems reviewed & are unremarkable except as noted in HPI and below ENT Reports neck pain Card Denies chest pain at rest, Denies chest pain with activity, Denies edema, Denies irregular heart rhythm, Denies claudication, Denies dyspnea, Denies dyspnea on exertion, Denies orthopnea, Denies paroxysmal nocturnal dyspnea and Denies slow heart rate Resp Denies cough, Denies dyspnea and Denies dyspnea on exertion Musc Reports arthralgias and Reports neck pain Physical exam (Primary Care) Vital Signs: Last Vital Signs BP 136/80 03/13/24 16:38 BMI result Body Mass Index 27.5 Tobacco/Smoking Status: Tobacco use Status Tobacco use date assessed 09/12/23 03/13/24 16:43 Patient Tobacco Use Status Former Tobacco user 03/13/24 16:43 e-Cigarette/Vaping Use Never Used 03/13/24 16:43 Thrive Assessment: Date of Thrive Assessment Date Thrive assessed 09/12/23 03/13/24 16:43 Resp Effort & Inspection: normal respiratory effort Auscultation: clear to auscultation bilaterally Cardio Jugular venous distension: no JVD Rate: regular rate Rhythm: regular rhythm Heart sounds: S1 normal heart sound present and S2 normal heart sound present Extrem General: Yes full ROM Office Procedures Flu Questionnaire Does the patient have a severe egg allergy?: No Does the patient have severe life threatening allergies?: No Does the patient have a fever or illness today?: No Has the patient ever had Guillain-[place] Syndrome?: No Has the patient ever had any past reaction to a flu shot?: No Immunizations Fluarix Triv [id number] (PF) 45 mcg (15 mcg x 3)/0.5 mL IM syringe Performing Provider: Seble Oscar MD [facility] Administered by: Frederick Kngiht PIETERJuan on 03/13/24 16:57 Dose Route Admin Location Dispensed Lot Number Expiration Date [facility] Practice Clinician 0.5 mL IM Left Deltoid 0.5 mL [id number] 11/25/24 [id number] [employer] VIS Given Date VIS Provided VIS Publication Date 03/13/24 Single Vaccine 21 Eligibility Eligibility Date Funding Source Not [facility] Eligible 03/13/24 Private Coding Level of Care Code Est Pt Level 4 (01038) Diagnoses Fatigue, unspecified type R53.83 Fatigue type: unspecified Chronic left shoulder pain M25.512; G89.29 Chronicity: chronic Cervical radiculopathy M54.12 Essential hypertension I10 Time Spent (min) 21 Assessment & Plan Assessment & Plan (1) Fatigue: Code(s): R53.83 - Other fatigue Category: Medical Qualifiers: Fatigue type: unspecified Qualified Code(s): R53.83 - Other fatigue Plan: Labs ordered. (2) Left shoulder pain: Code(s): M25.512 - Pain in left shoulder Category: Medical Qualifiers: Chronicity: chronic Qualified Code(s): M25.512 - Pain in left shoulder; G89.29 - Other chronic pain Plan: Referred to physical therapy. (3) Cervical radiculopathy: Code(s): M54.12 - Radiculopathy, cervical region Category: Medical Plan: Referred to physical therapy. (4) Essential hypertension: Code(s): I10 - Essential (primary) hypertension Category: Medical Plan: Discontinue amlodipine. Orders: Orders Influenza [id number] Immunization Today Z23 - Encounter for immunization Testosterone, Free/Total Today R53.83 - Other fatigue Vitamin D 25-OH Total Today E55.9 - Vitamin D deficiency, unspecified Thyroid Stimulating Hormone Today R53.83 - Other fatigue PT Evaluation and Treatment Today M25.512 - Pain in left shoulder, M54.12 - Radiculopathy, cervical region Vitamin B12 and Folate Today E53.8 - Deficiency of other specified B group vitamins Complete Blood Count Auto Diff Today R53.83 - Other fatigue Medications: New Fluarix Triv [id number] (PF) (flu vacc [id number] 6mos up(PF)) 0.5 mL IM ONCE 0.5 mL 0RF NS Z23 - Encounter for immunization Changed From cholecalciferol (vitamin D3) 50 mcg PO DAILY To cholecalciferol (vitamin D3) 50 mcg PO DAILY 90 days 90 caps 0RF Discontinued amlodipine Discontinued Reason: Patient Completed Course 5 mg PO DAILY 90 days 90 tabs 1RF
[2024-03-13 16:38] VITALS: BP 136/80; BMI 27.5
== END 2024-03-13 16:57 | disposition home or self-care (01) ==
PROVIDERS: PCP Internal Medicine; Visit Provider Internal Medicine
DX: R53.83 Other fatigue (principal); M25.512 Pain in left shoulder; G89.29 Other chronic pain; M54.12 Radiculopathy, cervical region; I10 Essential (primary) hypertension; Z23 Encounter for immunization

== ENCOUNTER → 2024-03-13 16:33 | Outpatient (BNVA) | payer OTHER, SELFPAY | PROVIDERS: PCP Internal Medicine; Visit Provider Internal Medicine | DX: Z23 Encounter for immunization (principal); R53.83 Other fatigue; M25.512 Pain in left shoulder; G89.29 Other chronic pain; M54.12 Radiculopathy, cervical region; I10 Essential (primary) hypertension | CPT/HCPCS: 90471; 90656; 99212 ==

== ENCOUNTER 2024-09-19 16:42 | Outpatient (AMB) | payer OTHER, SELFPAY ==
--- NOTE | 2024-09-19 16:46 | A.OFFPC_ITS ---
Vital Signs 09/19/24 16:47 Height 5 ft 4 in Weight 159 lb 4 oz BMI 27.3 BP 118/80 Blood Pressure Location Lt brachial Position Sitting Pulse 75 Pulse Source Pulse Oximeter Temp 97.3 F Temp Source Temporal Artery Scan Pulse Oximetry (%) 97 Oxygen Delivery Method Room Air Intake Visit Reasons: physical exam Signal Wirer Required: No Accompanied by: Spouse Allergies prochlorperazine [From COMPAZINE] Allergy (Intermediate, Verified 09/19/24 16:59) DIFFICULTY BREATHING gabapentin Allergy (Mild, Verified 09/19/24 16:59) depression Medication List - Last Reconciled 09/19/24 by Seble Oscar MD betamethasone valerate 0.1% 1 appl topical DAILY PRN 2 weeks cholecalciferol (vitamin D3) 50 mcg PO DAILY 90 days cyanocobalamin (vitamin B-12) 2,500 mcg PO DAILY hydrocortisone 1% (Preparation H Hydrocortisone) 1 appl topical TID PRN ketoconazole 2% 1 appl topical 2XW 30 days omega [id number]-jjb-fish oil 1,000 (120-180) mg (Fish Oil) 1 cap PO DAILY psyllium husk (Metamucil) 1 tbsp PO BID Tobacco use date assessed: 09/19/24 Dental Screening Dental Screen Date: 09/19/24 Did you have a dental visit in the last 12 months?: No Did you have a dental problem in the last 6 months where you did not have access to dental care?: No Was dental information given to patient?: Patient has dentist HPI HPI Comments History of Present Illness Details The patient is a 59-year-old male presenting for a physical examination and to review his medical history. He has a history of neck stiffness with associated burning sensations and numbness in both arms, particularly after physical activity or using certain supplements. These symptoms have persisted post-neck surgery and occasionally contribute to headaches and anxiety, affecting his sleep. He reports adverse reactions to Compazine and Gabapentin. His medication regimen consists of vitamin D, B12, and omega-3 supplementation. He has undergone a successful colonoscopy this year, revealing diverticulosis and internal hemorrhoids. In terms of family medical history, there is a prevalence of dementia, diabetes, and hypertension. The patient denies current tobacco use but mentions occasional beer consumption. - Received tetanus vaccination in 2021 - Underwent colonoscopy this year with n o neoplasia found, follow-up scheduled for October 08 - Supplements include vitamin D, B12, an d omega-3 ON LICENSE OF [facility] Medical History (Updated 09/19/24 @ 17:10 by Seble Oscar MD) OLIVA (nonalcoholic steatohepatitis) Bleeding hemorrhoids External thrombosed hemorrhoids Transaminitis Hearing loss Left shoulder pain Cervical radiculopathy Hematuria Lower back pain Disc degeneration, lumbar Pulmonary embolism Chronic fatigue Essential hypertension Mixed hyperlipidemia Surgical History History of colonoscopy H/O neck surgery History of rectal polypectomy Family History Father Dementia Mother Hypertension Diabetes Social History Housing: Apartment Alcohol intake: current Alcohol intake frequency: holidays/special occasions only Alcohol type: beer and hard liquor Patient Tobacco Use Status: Former Tobacco user e-Cigarette/Vaping Use: Never Used Second Hand Smoke Exposure: Yes service: No Current occupational status: employed Current occupational exposures/hazards: No Cognitive needs: No Hearing needs: No Vision needs: Yes Questionnaire PHQ-9 Over the last 2 weeks, how often have you been bothered by any of the following problems? 1. Little interest or pleasure in doing things: not at all 2. Feeling down, depressed, or hopeless: not at all 3. Trouble falling or staying asleep, or sleeping too much: not at all 4. Feeling tired or having little energy: more than half the days 5. Poor appetite or overeating: not at all 6. Feeling bad about yourself - or that you are a failure or have let yourself or your family down: not at all 7. Trouble concentrating on things, such as reading the newspaper or watching television: not at all 8. Moving or speaking so slowly that other people could have noticed. Or the opposite - being so fidgety or restless that you have been moving around a lot more than usual: not at all 9. Thoughts that you would be better off or of hurting yourself in some way: not at all Total score: 2 Depression Screening Interpretation: Negative Depression Screening Done: Yes 70734 - PHQ-9 Billing: Yes Source: Developed by Drs. Jimmy Guerra, Rakel Pelayo, Kamran White and colleagues, with an educational eber from [employer]. Thrive Questionnaire Date Thrive assessed: 09/19/24 I am a: Patient What is your living situation today?: I have a steady place to live Within the past 12 months, did the food you bought not last and you didn't have the money to get more?: I choose not to answer this question Within the past 12 months, did you worry whether your food would run out before you got money to buy more?: I choose not to answer this question Do you have trouble paying for medicines?: I choose not to answer this question Do you have trouble getting transportation to medical appointments?: No Do you have trouble paying your heating and electricity bill?: I choose not to answer this question Do you have trouble taking care of your child, family member or friend?: No Do you have trouble with day-to-day activities such as bathing, preparing meals, shopping, managing finances, etc.?: No Are you currently unemployed and looking for a job?: No Are you interested in more education?: No Please select the resources that you would like help with: None Currently or been in a relationship where the following occur: I choose not to answer THRIVE Score: 0 AUDIT C Alcohol Use Questionnaire (AUDIT-C) 1. How often do you have a drink containing alcohol?: Never 3. How often do you have six or more drinks on one occasion?: Never Total Score: 0 Score Reviewed/Action Taken: No GIA-7 AMB Questionnaire GIA-7 Date GIA - 7 assessed: 09/19/24 Feeling nervous, anxious, or on edge: 0 = Not at all Not being able to stop or control worryin = Not at all Worrying too much about different things: 0 = Not at all Trouble relaxin = More than half the days Being so restless that it is hard to sit still: 0 = Not at all Becoming easily annoyed or irritable: 0 = Not at all Feeling afraid as if something awful might happen: 0 = Not at all Total GIA-7 score (0-4 normal; 5-9 mild; 10-14 moderate; 15-21 severe): 2 Source: Developed by Rakel Arora B.W. Pierce, Kamran White and colleagues, with an educational eber from [employer]. GIA-7 Assessment Billing GIA-7 Assessment Tool: GIA-7 Assessment 51968 Review of Systems Const All systems reviewed & are unremarkable except as noted in HPI and below Card Denies chest pain at rest, Denies chest pain with activity, Denies edema, Denies irregular heart rhythm, Denies claudication, Denies dyspnea, Denies dyspnea on exertion, Denies orthopnea, Denies paroxysmal nocturnal dyspnea and Denies slow heart rate Resp Denies cough, Denies dyspnea and Denies dyspnea on exertion GI Denies abdominal pain, Denies change in bowel habits, Denies excessive flatus, Denies nausea and Denies vomiting Physical exam (Primary Care) Vital Signs: Last Vital Signs Temp 97.3 F 09/19/24 16:47 Pulse 75 09/19/24 16:47 BP 118/80 09/19/24 16:47 Pulse Ox 97 09/19/24 16:47 Oxygen Delivery Method Room Air 09/19/24 16:47 BMI result Body Mass Index 27.3 Tobacco/Smoking Status: Tobacco use Status Tobacco use date assessed 09/19/24 09/19/24 16:52 Patient Tobacco Use Status Former Tobacco user 09/19/24 16:49 e-Cigarette/Vaping Use Never Used 09/19/24 16:49 PHQ-9: PHQ-9 Score PHQ-9: Total score 2 09/19/24 16:52 Depression Screening Interpretation: Negative Thrive Assessment: Date of Thrive Assessment Date Thrive assessed 09/19/24 09/19/24 16:52 Currently or been in a relationship where the following occur: I choose not to answer HENNV Head: Yes normal to inspection, Yes normocephalic and Yes atraumatic Ears: external ears normal Eyes General: appearance normal, both eyes and all related structures Eyelids: Yes eyelids normal Conjunctivae: conjunctivae normal Neck Neck: Yes normal visual inspection and Yes supple Resp Effort & Inspection: normal respiratory effort Auscultation: clear to auscultation bilaterally Cardio Jugular venous distension: no JVD Rate: regular rate Rhythm: regular rhythm Heart sounds: S1 normal heart sound present and S2 normal heart sound present GI Inspection: Yes normal to inspection Palpation (GI): Soft to palpation and nontender Auscultation: normal bowel sounds Skin General skin exam: no rashes or lesions noted Neuro General: no focal motor deficits Extrem General: Yes full ROM Psych Appearance: grossly normal Coding Level of Care Code Est Pt Level 3 (86984) Est Pt Prev Care 40-64y(73679) Diagnoses Physical exam Z00.00 Allergic rhinitis J30.9 Chest pain R07.9 Cervical radiculopathy M54.12 Additional Codes GIA-7 Assessment Billing - GIA-7 Assessment Tool: GIA-7 Assessment 45527 ([id number]) PHQ-9 - 40503 - PHQ-9 Billing: Yes ([id number]) Time Spent (min) 35 Assessment & Plan Assessment & Plan (1) Physical exam: Code(s): Z00.00 - Encounter for general adult medical examination without abnormal findings Category: Medical (2) Allergic rhinitis: Code(s): J30.9 - Allergic rhinitis, unspecified Category: Medical (3) Chest pain: Code(s): R07.9 - Chest pain, unspecified Category: Medical (4) Cervical radiculopathy: Code(s): M54.12 - Radiculopathy, cervical region Category: Medical Plan I will address the patient's neck symptoms with recommended lifestyle modifications and possibly a specialist referral if symptoms persist. An electrocardiogram is planned to rule out cardiac causes of palpitations. I advised him to adhere to his scheduled follow-up for the colonoscopy. The use of vitamin D, , and omega-3 will be continued, considering reported benefits. I provided guidance on managing anxiety related to preworkout supplements and suggested monitoring feelings of stiffness and arm numbness closely. Patient was informed and verbally consented to the use of an ambient scribe for clinic note documentation during this visit. I discussed the management of his neck symptoms, emphasizing the role of structured exercise and possible specialist consultation if surgery sequelae persist. We reviewed the significance of timely follow-up for colonoscopic findings and the importance of continuing current supplements. I advised the patient to self-monitor for adverse reactions to preworkout supplements and discussed potential alternatives and strategies to mitigate anxiety. The electrocardiogram was recommended to ensure cardiac health, and I went over the risks and benefits. I encouraged him to attend the scheduled gastroenterology follow-up for additional evaluations. Orders: Orders Vitamin B12 and Folate Today E53.8 - Deficiency of other specified B group vitamins Vitamin D 25-OH Total Today E55.9 - Vitamin D deficiency, unspecified Comprehensive [place]. Panel Fast Today Z00.00 - Encounter for general adult medical examination without abnormal findings MR cervical spine wo con Today M54.12 - Radiculopathy, cervical region ECG 12 lead EKG Today R07.9 - Chest pain, unspecified Lipid Panel Today Z00.00 - Encounter for general adult medical examination without abnormal findings Medications: New cetirizine (All Day Allergy (cetirizine)) 10 mg PO DAILY 90 days PRN 90 tabs 0RF allergy symptoms J30.9 - Allergic rhinitis, unspecified Patient Instructions: - Keep your follow-up appointment for the colonoscopy discussion on October 08 - Continue taking vitamin D, B12, and omega-3 as prescribed - Monitor your neck symptoms and any changes in numbness or stiffness - Report any increase in palpitations or anxiety related to supplement use - Return for an electrocardiogram to evaluate any cardiac concerns - Adjust lifestyle changes to manage neck symptoms and improve sleep quality
[2024-09-19 16:47] VITALS: BP 118/80; PULSE 75; TEMP 36.3; O2SAT 97; BMI 27.3
--- OUTSIDE RECORDS SUMMARY | 2024-09-19 18:51 | XMS_ITS | Clinical Summary ---
Author Organization [facility] Address [address] [place] [address] Care Team Providers Care Fishing Reel Assembler Name Role Phone Seble Romero MD Primary Care Provid er Social History Tobacco Use Types Packs/Day Years Used Date Smoking Tobacco: Never Assessed Sex and Gender Information Value Date Recorded Sex Assigned at Not on file Gender Identity Not on file Sexual Orientation Not on file Plan of Treatment Health Maintenance Due Date Last Done Comments Hepatitis B Vaccines (1 of 3 - 3-dose series) 1965 Hepatitis C Screening 1965 COVID-19 Vaccine (#1) 02/02/1966 Depression Screening 1977 Preventative Health Evaluation 08/03/1983 DTap / Tdap / Td (1 - Tdap) 1984 Colon Cancer Screening (Colonoscopy) 2010 Shingrix-Zoster Vaccine (1 of 2) 08/03/2015 Influenza Vaccine (#1) 2024 Pneumococcal Vaccine Aged Out No long er eligible based on patient's age to complete this topic RSV Ped < 20 months Aged Out No longe r eligible based on patient's age to complete this topic Care Teams Fishing Reel Assembler Relationship Specialty Start Date End Date Seble Romero MD [address] [facility] , [address] [facility] D/B/A: [facility] JOSE J Luna [id number] PCP - General Internal Medicine 02/21/17
== END 2024-09-19 17:13 | disposition home or self-care (01) ==
LOC: HO.HMCH 16:43
PROVIDERS: PCP Internal Medicine; Visit Provider Internal Medicine
DX: Z00.00 Encounter for general adult medical examination without abnormal findings (principal); J30.9 Allergic rhinitis, unspecified; R07.9 Chest pain, unspecified; M54.12 Radiculopathy, cervical region

== ENCOUNTER → 2024-09-19 16:42 | Outpatient (BNVA) | payer OTHER, SELFPAY | PROVIDERS: PCP Internal Medicine; Visit Provider Internal Medicine | DX: Z00.01 Encounter for general adult medical examination with abnormal findings (principal); J30.9 Allergic rhinitis, unspecified; R07.9 Chest pain, unspecified; M54.12 Radiculopathy, cervical region | CPT/HCPCS: 96127; 99212; 99396 ==

== ENCOUNTER 2024-10-08 15:51 | Outpatient (AMB) | payer OTHER, SELFPAY ==
[2024-10-08 15:54] VITALS: BP 159/93; PULSE 73; O2SAT 95; BMI 27.5
--- NOTE | 2024-10-08 15:54 | MHC.OFFVIS ---
Vital Signs 10/08/24 15:54 Height 5 ft 4 in Weight 160 lb 7.944 oz BMI 27.5 BP 159/93 H Blood Pressure Location Rt brachial Position Sitting Pulse 73 Pulse Source Pulse Oximeter Pulse Oximetry (%) 95 Oxygen Delivery Method Room Air Intake Visit Reasons: f/u Intake Note: Pt presents to the office today for a follow up. Allergies prochlorperazine [From COMPAZINE] Allergy (Intermediate, Verified 10/08/24 15:54) DIFFICULTY BREATHING gabapentin Allergy (Mild, Verified 10/08/24 15:54) depression HPI HPI f/u: Details: Assessment & Plan (1) Constipation: Code(s): K59.00 - Constipation, unspecified Plan: Swedish #declines WE review the above results and given the very mild fatty liver this can be followed by his PCP. He has on and off CIC and he is bothered by a burning inside. This is worse when he comes home from the gym. He is also having some rectal bleeding intermittently. He has a hx of external thrombosed hemorrhoid that were addressed in the past by Dr. Degroot. HE has been using OTC prep H and a rx'ed hydrocortisone cream w/o relief. He is also was instructed about ice packs and sitz baths, but since he wants something else I will refer him to surgery for consideration. He only takes colace for his constipation and he feels this is sufficient. NO FHX of crc or polyps. He had a negative scope in 2014. There are no prior problems with anesthesia or sedation. Denies any cardiac or respiratory problems. NO ID problems. NO known FHX crc or polyps. (2) Bright red blood per rectum: Code(s): K62.5 - Hemorrhage of anus and rectum (3) OLIVA (nonalcoholic steatohepatitis): Comment: Baseline Laboratory Tests GIVEN THE MILDNESS OF THE FATTY LIVER THIS CAN BE FOLLOWED BY THE PRIMARY CARE PROVIDER 09/18/21 Plt Count 268 Ferritin 189 GGT 44 the Ceruloplasmin 26 Alpha Fetoprotein 1.5 HEATHER Screen NEGATIVE Anti-Mitochondrial Ab NEGATIVE Anti-Smooth Muscle Ab <20 Hepatitis A IgM Ab Nonreactive Hep Bs Antigen Negative Hep Bs Antibody NONREACTIVE Hep B Core Total Ab Nonreactive Hepatitis C Ab (EIA) Nonreactive HIV 1&2 Ab/P24 Ag 4thGn Nonreactive Total Bilirubin 1.1 H Direct Bilirubin 0.2 the AST 32 ALT 26 Alkaline Phosphatase 100 The ULTRASOUND OF THE ABDOMEN WITH ELASTOGRAPHY (F-0) 12/02/21 IMPRESSION: 1. Hepatic steatosis with few scattered echogenic lesions likely artifact or fatty infiltration. ? 2. Liver elastography: Median liver stiffness measures 1.25 m/s suggestive of high probably normal. Code(s): K75.81 - Nonalcoholic steatohepatitis (OLIVA) (4) Pre-op examination: Code(s): Z01.818 - Encounter for other preprocedural examination (5) Bleeding hemorrhoids: Code(s): K64.9 - Unspecified hemorrhoids Orders: Referrals General Surgery Referral K64.9 - Unspecified hemorrhoids Medications: New peg 3350-electrolytes 236-22.74-6.74 -5.86 gram (Golytely) until fecal effluent is clear; do not exceed a total volume of 2,000 mL 240 mL PO Q10M 4,000 mL 0RF 1 day Z12.11 - Encounter for screening for malignant neoplasm of colon COLONOSCOPY 06/28/24 Findings: Terminal Ileum: Not evaluated Cecum: Partially evaluated due to undigested vegetable matter Ascending Colon: A 3-4 mm sessile polyp in the distal AC - removed with a cold biopsy. Moderate diverticulosis throughout the entire colon Transverse Colon: Moderate diverticulosis throughout the entire colon Descending Colon: Moderate diverticulosis throughout the entire colon Sigmoid Colon: Partially evaluated due to undigested vegetable matter Moderate diverticulosis Rectum: Normal Ano-rectum: Moderate internal hemorrhoids Impression and Post Procedure Diagnosis: Colonoscopy Findings: One small polyp was removed Moderate diverticulosis seen in the entire colon Moderate hemorrhoids on retroflexed exam. Suboptimal prep in the cecum and left colon (Pt admitted to taking solids the morning prior to the procedure On 06/27/24 @ 13:42 Sil Brar Wrote To Sil Brar Spoke with patient via [employer] #[id number], reviewed prep Peg/ dulcoalx. He did take dulcolax pills at 12:30. Reports he ate soup with some noodles and a little ground beef and yogurt. Stressed plenty of clear liquids - reviewed what is acceptable and no food. Dr. Tinajero aware of eating, no changes to prep. Plan: Pt has a FU appointment on 07/12/24 with Rona Castorena NP, Repeat Colonoscopy in 1-2 years if polyps are adenomatous and due to suboptimal prep in the left colon (Dulcolax 10 mg daily starting 3 days and NO solids the day before next colon appt ) BIOPSY Received: 06/28/24 Diagnosis Colon, ascending, polypectomy: Clinically polypoid colonic mucosa noted; negative for a hyperplastic or neoplastic process TODAY'S VISIT Patient has been lost to follow-up since 2022 From the endoscopist report: (Dulcolax 10 mg daily starting 3 days and NO solids the day before next colon appt ) He denies eating any liquids the day of the prep, but he does suffer CIC at his baseline. He did not have any trouble with the prep either. I again confirm that he is ok and not straining if he takes his stool softener, but he also says that he does not need the stool softener when I go to the gym. I explain that straining is what causes the hemorrhoids and the rectal bleeding. ROV 2 years. PFSH Medical History OLIVA (nonalcoholic steatohepatitis) Bleeding hemorrhoids External thrombosed hemorrhoids Transaminitis Hearing loss Left shoulder pain Cervical radiculopathy Hematuria Lower back pain Disc degeneration, lumbar Pulmonary embolism Chronic fatigue Essential hypertension Mixed hyperlipidemia Surgical History (Updated 10/08/24 @ 16:12 by SURJIT Vo) History of colonoscopy H/O neck surgery History of rectal polypectomy Family History Father Dementia Mother Hypertension Diabetes Social History Housing: Apartment Alcohol intake: current Alcohol intake frequency: holidays/special occasions only Alcohol type: beer and hard liquor Patient Tobacco Use Status: Former Tobacco user e-Cigarette/Vaping Use: Never Used Second Hand Smoke Exposure: Yes service: No Current occupational status: employed Current occupational exposures/hazards: No Cognitive needs: No Hearing needs: No Vision needs: Yes Review of Systems Const Denies fatigue, Denies fever(s), Denies night sweats, Denies poor appetite and Denies weight loss Eyes Details: glasses Reports requires corrective lenses ENT Reports Normal hearing present, Denies dental pain, Denies dysphagia, Denies hearing loss, Denies mouth pain, Denies odynophagia, Denies throat swelling, Denies tongue swelling and Reports other (Dentition adequate) GI Details: Denies abdominal pain, Denies melena, Denies bloating, Denies hematochezia, Denies constipation, Denies GI cramping, Denies dysphagia, Denies excessive flatus, Denies early satiety, Denies heartburn, Denies diarrhea, Denies nausea, Denies odynophagia, Denies vomiting and Denies hematemesis Skin/Breast Denies pruritus, Denies lesions, Denies rash and Denies jaundice Neuro Reports Normal hearing present and Denies Abnormal speech present Endo Denies fatigue Aller/Immun Denies throat swelling and Denies tongue swelling Physical Exam Vital Signs: Last Vital Signs Pulse 73 10/08/24 15:54 BP 159/93 H 10/08/24 15:54 Pulse Ox 95 10/08/24 15:54 Oxygen Delivery Method Room Air 10/08/24 15:54 BMI result Body Mass Index 27.5 Const General: cooperative, no acute distress, well developed and well groomed Nutritional Appearance: well nourished, obese and overweight Orientation/consciousness: oriented to person, oriented to place and oriented to time Limitations: No language barrier, ambulation with cane, ambulation with walker and wheelchair HEENT Head: Yes normocephalic and Yes atraumatic Eyes General: appearance normal, both eyes and all related structures Pupils: Equal, round and reactive pupils present Neck Neck: Yes normal visual inspection and Yes no lymphadenopathy Thyroid: Thyroid normal Resp Effort & Inspection: normal respiratory effort and able to speak in complete sentences Auscultation: clear to auscultation bilaterally Cardio Rate: regular rate Rhythm: regular rhythm Heart sounds: Normal, physiologic split S2 sound present Peripheral pulses: radial pulses present and posterior tibial pulses present GI Inspection: No distended and No Abdominal panniculus present Palpation (GI): Soft to palpation, nontender, no guarding, not rigid, No hepatosplenomegaly present and Hepatosplenomegaly present Percussion: Yes normal to percussion Auscultation: normal bowel sounds Rectal Exam - Male: Yes deferred Skin General skin exam: no rashes or lesions noted, turgor normal, skin not dry, no jaundice, No spider nevi and no striae Rashes: no rashes Nails: normal Neuro General: oriented to person, oriented to place and oriented to time Cranial nerves: Yes Equal, round and reactive pupils present and Yes Normal hearing present Speech: No Abnormal speech present Extrem General: Yes normal to inspection, No clubbing, No cyanosis and No edema Psych Thought process: Normal thought process present and not confabulating Thought content: Normal thought content present Insight: Good insight present (Psych) Judgement: Good judgement present (Psych) Assessment & Plan Assessment & Plan (1) History of colonoscopy: Comment: [id number] polyp repeat 2 years r/t poor prep (pt ate during prep. 02/1015 neg study Code(s): Z98.890 - Other specified postprocedural states Category: Surgical Plan Patient has been lost to follow-up since 2022 From the endoscopist report: (Dulcolax 10 mg daily starting 3 days and NO solids the day before next colon appt ) He denies eating any liquids the day of the prep, but he does suffer CIC at his baseline. He did not have any trouble with the prep either. I again confirm that he is ok and not straining if he takes his stool softener, but he also says that he does not need the stool softener when I go to the gym. I explain that straining is what causes the hemorrhoids and the rectal bleeding. ROV 2 years. Coding Level of Care Code Est Pt Level 3 (89216) Diagnoses History of colonoscopy Z98.890
--- OUTSIDE RECORDS SUMMARY | 2024-10-08 16:31 | XMS_ITS | Clinical Summary ---
Author Organization [facility] Address [address] [place] [address] Care Team Providers Care Field Technical Assistant Name Role Phone Seble Romero MD Primary [...] age to complete this topic Care Teams Field Technical Assistant Relationship Specialty Start Date End Date Seble Romero MD [address] [facility] , [address] [facility] Physician Associ D/B/A: [facility] JOSE J [place] [id number] PCP - General Internal Medicine 02/21/17
--- OUTSIDE RECORDS SUMMARY | 2024-10-08 16:31 | XMS_ITS | Clinical Summary ---
Author Organization [facility] Address [address] [place] [address] Care Team Providers Care Pain Management Nurse Practitioner Name Role Phone Seble Oscar MD Primary Care Provider [phone] Social History Tobacco Use Types Packs/Day Years Used Date Smoking Tobacco: Never Smokeless Tobacco: Never Sex and Gender Information Value Date Recorded Sex Assigned at Not on file Legal Sex Male 10:35 AM EST Gender Identity Not on file Sexual Orientation Not on file Obstetrics History Last Filed Vital Signs Vital Sign Reading Time Taken Comments Blood Pressure - - Pulse - - Temperature - - Respiratory Rate - - Oxygen Saturation - - Inhaled Oxygen Concentration - - Weight 77.1 kg (170 lb) 03/04/2022 2:19 PM EDT Height 162.6 cm (5' 4 ) 03/04/2022 2:19 PM EDT Body Mass Index 29.18 03/04/2022 2:19 PM EDT Plan of Treatment Health Maintenance Due Date Last Done Comments DTaP,Tdap,and Td Vaccines (1 - Tdap) 1984 Hepatitis B Vaccines (1 of 3 - 19+ 3-dose series) 1984 Pneumococcal Vaccine: 50+ Ye ars (1 of 1 - PCV) 08/03/2015 Zoster Vaccines (1 of 2) 08/03/2015 Cholesterol Screening (Lipid Panel) 05/02/2022 Colorectal Cancer Screening: Colonoscopy 05/02/2022 Depression Screening 05/02/2022 HIV Screening 05/02/2022 Hepatitis C Screening 05/02/2022 Social Influencers of Health Screening 05/02/2022 COVID-19 Vaccine ( - 2023-2 5 season) 2024 Influenza Vaccine (Season Ended) 2025 RSV Immunization Adult Patie nts (1 - 1-dose 75+ series) 2040 HIB Vaccines Aged Out No longer eligi ble based on patient's age to complete this topic HPV Vaccines Aged Out No longer eligi ble based on patient's age to complete this topic Hepatitis A Vaccines Aged Out No long er eligible based on patient's age to complete this topic IPV Vaccines Aged Out No longer eligi ble based on patient's age to complete this topic MMR Vaccines Aged Out No longer eligi ble based on patient's age to complete this topic Meningococcal ACWY Vaccine Aged Out N o longer eligible based on patient's age to complete this topic Meningococcal B Vaccine Aged Out No l onger eligible based on patient's age to complete this topic Pneumococcal Vaccine: Pediat rics (0 to 5 Years) and At-Risk Patients (6 to 64 Years) Aged Out No longer eligible b ased on patient's age to complete this topic RSV Immunization Patients Un maria ines 20 months Aged Out No longer eligible b ased on patient's age to complete this topic Varicella Vaccines Aged Out No longer eligible based on patient's age to complete this topic Care Teams Pain Management Nurse Practitioner Relationship Specialty Start Date End Date Seble Oscar MD [address] [place] [address] , [address] [facility] D/B/A: [facility] JOSE J Luna PCP - General Internal Medicine 02/21/17
== END 2024-10-08 16:18 | disposition home or self-care (01) ==
LOC: HO.HGI 15:52
PROVIDERS: PCP Internal Medicine; Visit Provider Nurse Practitioner
DX: Z98.890 Other specified postprocedural states (principal)
CPT/HCPCS: 99213

== ENCOUNTER → 2024-10-08 15:51 | Outpatient (BNVA) | payer OTHER, SELFPAY | PROVIDERS: PCP Internal Medicine; Visit Provider Nurse Practitioner | DX: Z98.890 Other specified postprocedural states (principal) | CPT/HCPCS: 99212 ==

== ENCOUNTER 2025-01-03 07:49 | Outpatient (REF) | payer OTHER, SELFPAY ==
--- OUTSIDE RECORDS SUMMARY | 2025-01-03 07:52 | XMS_ITS | Clinical Summary ---
Author Organization [facility] Address [address] [place] [address] Care Team Providers Care Sales Project Engineer Name Role Phone Seble Oscar MD Primary Care Provider [phone] Social History Tobacco Use Types Packs/Day Years [...] Panel) 05/02/2022 Colorectal Cancer Screening: Colonoscopy 05/02/2022 HIV Screening 05/02/2022 Hepatitis C Screening 05/02/2022 Social Influencers of Health Screening 05/02/2022 COVID-19 Vaccine (1 - 2023-2 5 season) 2024 Depression Screening 05/29/2024 Influenza Vaccine (#1) 2025 RSV Immunization Adult Patie nts (1 [...] age to complete this topic Care Teams Sales Project Engineer Relationship Specialty Start Date End Date Seble Oscar MD [address] [place] [address] , [address] [facility] Physician Associ D/B/A: [facility] JOSE J Luna PCP - General Internal Medicine 02/21/17
--- OUTSIDE RECORDS SUMMARY | 2025-01-03 07:52 | XMS_ITS | Clinical Summary ---
Author Organization [facility] Address [address] [place] [address] Care Team Providers Care Second Vp Hr Assessment Name Role Phone Seble Romero MD Primary [...] (1 of 2) 08/03/2015 Influenza Vaccine (#1) 2025 Pneumococcal Vaccine Aged Out No long er eligible based on patient's age to complete this topic RSV Ped < 20 months Aged Out No longe r eligible based on patient's age to complete this topic Care Teams Second Vp Hr Assessment Relationship Specialty Start Date End Date Seble Romero MD [address] [facility] , [address] [facility]ician [facility] D/B/A: [facility] JOSE J Luna [id number] PCP - General Internal Medicine 02/21/17
[2025-01-03 08:02] LABS: MANUAL DIFF FLAG NO
[2025-01-03 08:24] LABS: Hematocrit 45.2 % (42.0-52.0); Hemoglobin 15.8 g/dl (14.0-18.0); Imm Gran Abs Auto 0.02 X10*3/uL (0.00-0.03); Imm Gran Pct Auto 0.3 % (0.0-0.4); Lymphocytes Absolute Auto 2.1 X10*3/uL (1.2-4.9); Mean Corpuscular HGB Conc 35.0 g/dl (31.0-36.0); Mean Corpuscular Hemoglobin 29.5 pg (27.0-33.0); Mean Corpuscular Volume 84.5 fL (80.0-98.0); NRBC Abs Auto 0.000 X10*3/uL (0.0-0.012); NRBC Pct Auto 0.0 /100WBC (0.0-0.2); Platelet Count 223 X10*3/uL (160-400); Red Blood Count 5.35 X10*6/uL (4.60-5.80); White Blood Count 5.9 X10*3/uL (4.8-10.8)
[2025-01-03 08:43] LABS: Alanine Aminotransferase 32 U/L (0-40); Albumin Level 4.5 g/dL (3.5-5.0); Alkaline Phosphatase 84 U/L (39-117); Anion Gap 10 (12-20); Aspartate Amino Transferase 39 U/L (5-37); Blood Urea Nitrogen 20 mg/dL (9-16); Calcium 9.5 mg/dL (8.4-10.2); Carbon Dioxide 30 mmol/L (22-29); Chloride 106 mmol/L (96-108); Cholesterol 201 mg/dL (<200); Estimated Glomerular Filt Rate > 60; HDL Cholesterol 42 mg/dL (>40); Potassium 4.2 mmol/L (3.3-5.1); Sodium 142 mmol/L (135-145); Total Protein 7.4 g/dL (6.5-8.0); Triglycerides 134 mg/dL (<150)
[2025-01-03 09:00] LABS: Thyroid Stimulating Hormone 1.76 uIU/mL (0.32-4.0)
[2025-01-03 09:23] LABS: Folate 10.9 ng/mL (> or = 4.0); Vitamin B12 578 pg/mL (200-900)
[2025-01-09 22:23] LABS: Testosterone, Free 66.6 pg/mL (35.0-155.0)
== END 2025-01-03 07:50 | disposition home or self-care (01) ==
LOC: HO.LAB 07:49
PROVIDERS: PCP Internal Medicine; Visit Provider Internal Medicine
DX: Z00.00 Encounter for general adult medical examination without abnormal findings (principal); E53.8 Deficiency of other specified B group vitamins; E55.9 Vitamin D deficiency, unspecified; R53.83 Other fatigue
CPT/HCPCS: 36415; 80053; 80061; 82306; 82607; 82746; 84402; 84403; 84443; 85025

== ENCOUNTER 2025-01-16 16:37 | Outpatient (REF) | payer OTHER, SELFPAY ==
--- OUTSIDE RECORDS SUMMARY | 2025-01-16 16:40 | XMS_ITS | Clinical Summary ---
Author Organization [facility] Address [address] [place] [address] Care Team Providers Care Smelter Operator Name Role Phone Seble Oscar MD Primary Care Provider [phone] Social History Tobacco Use Types Packs/Day Years [...] age to complete this topic Care Teams Smelter Operator Relationship Specialty Start Date End Date Seble Oscar MD [address] [place] [address] , [address] [facility] D/B/A: [facility] JOSE J Luna PCP - General Internal Medicine 02/21/17
--- OUTSIDE RECORDS SUMMARY | 2025-01-16 16:40 | XMS_ITS | Clinical Summary ---
Author Organization [facility] Address [address] [place] [address] Care Team Providers Care Commercial Credit Analyst Name Role Phone Seble Romero MD Primary [...] age to complete this topic Care Teams Commercial Credit Analyst Relationship Specialty Start Date End Date Seble Romero MD [address] [facility] , [address] [facility] D/B/A: [facility] JOSE J Luna [id number] PCP - General Internal Medicine 02/21/17
[2025-01-16 18:11] LABS: Appearance Urine Clear; Glucose Urine UA Negative (Negative); PH 7.5 (5.0-9.0); Specific Gravity - Urine 1.015 (1.005-1.025); UMIC TRIGGER UACC YES
== END 2025-01-16 16:38 | disposition home or self-care (01) ==
LOC: HO.LAB 16:37
PROVIDERS: PCP Internal Medicine; Visit Provider Internal Medicine
DX: R30.0 Dysuria (principal)
CPT/HCPCS: 81001

== ENCOUNTER 2025-02-04 12:38 | Outpatient (REF) | payer OTHER, SELFPAY ==
--- NOTE | ~2025-02-04 | XR_ITS ---
EXAMINATION: XR CERVICAL SPINE CLINICAL INFORMATION: M54.12 - Radiculopathy, cervical region COMPARISON: 05/15/2020 TECHNIQUE: 5 views of the cervical spine were obtained. FINDINGS: There is mild reversal of the normal cervical lordosis. No fractures are identified. Again noted are changes related to anterior cervical discectomy and fusion at C6-7. Hardware appears intact. Uncovertebral osteophytes narrow the left neural foramen at C6-7 and C7-T1. There is no prevertebral soft tissue edema. XR/XR cervical spine 4V IMPRESSION: There is mild reversal of cervical lordosis. This can be related to degenerative changes, positioning, muscle spasm, or posterior soft tissue injury. Mild narrowing of the left C6-7 and C7-T1 neural foramen by uncovertebral osteophytes. Electronically signed by: Charles Tapia MD 02/04/2025 02:35 PM EDT
--- NOTE | ~2025-02-04 | XR_ITS ---
EXAMINATION: XR SHOULDER, LEFT CLINICAL INFORMATION: M25.512 - Pain in left shoulder COMPARISON: None available. TECHNIQUE: AP external rotation, Grashey, scapular Y, and axillary views of the left shoulder. FINDINGS: Small humeral head marginal osteophytes are present. There is no dislocation. There is no fracture. AC joint is intact and not degenerated. XR/XR shoulder LT min 2V IMPRESSION: Mild degenerative changes of the left shoulder joint. Electronically signed by: Charles Tapia MD 02/04/2025 02:15 PM EDT
== END 2025-02-04 12:39 | disposition home or self-care (01) ==
LOC: HO.XRAY 12:38
PROVIDERS: PCP Internal Medicine; Visit Provider Nurse Practitioner Family
DX: M19.012 Primary osteoarthritis, left shoulder (principal); M54.12 Radiculopathy, cervical region; M96.1 Postlaminectomy syndrome, not elsewhere classified; G89.29 Other chronic pain; M62.838 Other muscle spasm
CPT/HCPCS: 72050; 73030; 99202

== ENCOUNTER 2025-02-04 12:38 | Outpatient (AMB) | payer OTHER, SELFPAY ==
--- NOTE | 2025-02-04 12:58 | A.OFFVIS_ITS ---
Vital Signs 3 02/04/25 12:59 Height 5 ft 4 in Weight 157 lb BMI 26.9 BP 175/95 H Blood Pressure Location Lt brachial Position Sitting Respiration 16 Pulse 64 Pulse Source Pulse Oximeter Pulse Oximetry (%) 98 Oxygen Delivery Method Room Air Intake Visit Reasons: Pain in left shoulder Pickler Helper Required: No Allergies prochlorperazine (From COMPAZINE) Allergy (Intermediate, Verified 02/06/25 12:59) DIFFICULTY BREATHING gabapentin Allergy (Mild, Verified 02/06/25 12:59) depression Medication List - Last Reconciled 02/04/25 by Jenna Tomlin LPN cholecalciferol (vitamin D3) 50 mcg PO DAILY 90 days cyanocobalamin (vitamin B-12) 2,500 mcg PO DAILY ketoconazole 2% 1 appl topical 2XW 30 days nabumetone 750 mg PO BID PRN 30 days omega 1-ize-qfx-fish oil 1,000 (120-180) mg (Fish Oil) 1 cap PO DAILY HPI Comments Details: The patient is a 59-year-old male presenting with left shoulder pain and neck pain. The neck pain radiates to the left arm, and he has a history of cervical surgery, ACDF C6-C7 performed by Dr. Willson in 2020. He was previously managed by Dr. Handy from 2019 to 2020, receiving interventional treatments, including neck and lumbar injections with some relief. The shoulder and neck pain are worse in the morning, with a severity of 7 out of 10. The pain is constant and described as pulsing, throbbing, burning, pinching, cramping, and tightness with grazing sensations. He denies any recent injury, trauma, or falls. Physical therapy was completed earlier this year with minimal relief, and customer care manager was sought about 3 years ago. The patient reports numbness and tingling in the left arm and leg, which sometimes affects the left leg. He denies any spine imaging since worsening of his neck symptoms and completion of PT. Patient reports he was told he needs left shoulder surgery about 2 years ago at [facility] but has been hesitant towards surgery. He is interested to undergo therapeutic shoulder injection with fluoroscopy guidance prior Orthopedic follow-up surgical re-evaluation. - Onset and Timing: Chronic pain for many years, progressively is worse in the morning, constant throughout the day. - Quality and Character: Described as pulsing, throbbing, burning, pinching, cramping, tightness, and grazing sensations. - Primary Location: Left shoulder and neck, radiating to the left arm. - Exacerbating Factors: Worse in the morning. 12/05 with activities - Relieving Factors: Temporary relief from physical therapy. - Affect: Pain impacts daily activities and causes discomfort. - Analgesia: Previously received neck and lumbar injections with some relief. - Activities of Daily Living: Pain affects the ability to perform daily tasks, especially in the morning. PRIOR 05/08/21 Dr. Handy: Mr. Tirado came to my office again after long period of absence. He was on interventional program here with epidural steroid injections. I performed transforaminal cervical on the left epidural steroid injection on the request of Dr. Willson. Patient had prolonged pain relief. That led Dr. Willson to perform a cervical surgery on the patient. He also complains on pain in lower back and I performed injections on him in the lower back transforaminal epidural steroid injections RIGHT L5-S1 & LEFT L4-L5 TFESI 04/07/20 He reported very good pain relief with the injections, unfortunately he contracted COVID-19 and developed pulmonary embolism. He was placed on Eliquis by primary care physician for at least 6 months with no possibility of stopping this medication. After that he will be re-evaluated and possibly we can stop the medications temporarily. Therefore for the next 3 months I cannot perform any injections for him because of the blood thinner medications. I offered him to become chronic opioid therapy patient at least temporarily until the Eliquis which is possible to stop. I gave him the information on chronic opioid therapy pages to read and PHQ questionnaire to fill up. After quick reading of the opioid risk page patient decided not to go for chronic opioid therapy. He said that he will go to his chiropractor and try to temporize his pain by chiropractor in the future. I will schedule this patient for next injection only after 6 months that he had Eliquis prescribed for him. I would need to have his primary care doctor or fire range technician evaluation, possibly evaluation by pulmonology whether not he ever can have the 4 days suspension of Eliquis to perform the injections as above. [facility] Medical History Screening for colon cancer Muscle spasms of neck OLIVA (nonalcoholic steatohepatitis) Bleeding hemorrhoids External thrombosed hemorrhoids Transaminitis Hearing loss Left shoulder pain Cervical radiculopathy Hematuria Lower back pain Disc degeneration, lumbar Pulmonary embolism Chronic fatigue Essential hypertension Mixed hyperlipidemia Surgical History History of colonoscopy H/O neck surgery History of rectal polypectomy Family History Father Dementia Mother Hypertension Diabetes Social History Housing: Apartment Alcohol intake: current Alcohol intake frequency: holidays/special occasions only Alcohol type: beer and hard liquor Patient Tobacco Use Status: Former Tobacco user e-Cigarette/Vaping Use: Never Used Second Hand Smoke Exposure: Yes service: No Current occupational status: employed Current occupational exposures/hazards: No Cognitive needs: No Hearing needs: No Vision needs: Yes Review of Systems Const Details: - Musculoskeletal: Reports left shoulder and neck pain, worse in the morning. - Neurological: Reports numbness and tingling in the left arm and leg. Denies weakness, bladder or bowel dysfunction or saddle anesthesia. - General: Denies recent injury, trauma, or falls. All systems reviewed & are unremarkable except as noted in HPI and below Physical Exam Vital Signs: Last Vital Signs Pulse 64 02/04/25 12:59 Resp 16 02/04/25 12:59 BP 175/95 H 02/04/25 12:59 Pulse Ox 98 02/04/25 12:59 Oxygen Delivery Method Room Air 02/04/25 12:59 BMI result Body Mass Index 26.9 General: Appears afebrile. Alert and oriented. Mood and affect appropriate. Follows and participates in conversation appropriately. Respiratory effort is unlabored. No cough. Able to transition from sit to stand unassisted. Ambulates with bilaterally normal heel strike and toe off. Neck Other: Patient with decreased cervical ROM in all planes/especially with left lateral rotation. Reports increased pain with cervical extension and flexion. Spurling compression test equivocal. Elvey's tension test positive on the right, with radiation of pain from neck to wrist and tingling in hand. Lhermitte's test was negative. DTR intact, +2 and symmetrical. Patient demonstrated 5/5 left and 4/5 right motor strength of bilateral upper extremities. 2 + radial pulses. Significant tightness throughout right upper trapezius as well as TTP throughout bilateral upper trapezius muscles. No paravertebral tenderness over facet joint on affected side. Neck: Yes normal visual inspection, Yes no lymphadenopathy, Yes supple, No anterior neck swelling, Yes no JVD, No prominent supraclavicular fat pad and No prominent dorsocervical fat pad Back/Spine/Pelvis Cervical Spine: No collar present, cervical muscular tenderness, pain with cervical ROM, Cervical spine scars present, cervical spasm, No Cervical spine tenderness and No step off deformity Thoracic/Lumbar Spine: thoracic and lumbar spine normal to inspection, No Thoracic/lumbar spine scar(s), No thoracic spinal tenderness and No lumbar spinal tenderness Extrem Left upper extremity: shoulder/upper arm (Limited ROM due to pain, worse with overhead reaches) Details: inspection abnormal, tenderness Location: over the biceps tendon and over the subacromial bursa, axillary nerve sensory function normal and crepitus; no swelling, no ecchymosis and no unsual warmth Results Reviewed Results Reviewed: XR SHOULDER, LEFT 02/04/25 CLINICAL INFORMATION: M25.512 - Pain in left shoulder COMPARISON: None available. TECHNIQUE: AP external rotation, Grashey, scapular Y, and axillary views of the left shoulder. FINDINGS: Small humeral head marginal osteophytes are present. There is no dislocation. There is no fracture. AC joint is intact and not degenerated. IMPRESSION: Mild degenerative changes of the left shoulder joint. XR CERVICAL SPINE 02/04/25 CLINICAL INFORMATION: M54.12 - Radiculopathy, cervical region COMPARISON: 05/15/2020 TECHNIQUE: 5 views of the cervical spine were obtained. FINDINGS: There is mild reversal of the normal cervical lordosis. No fractures are identified. Again noted are changes related to anterior cervical discectomy and fusion at C6-7. Hardware appears intact. Uncovertebral osteophytes narrow the left neural foramen at C6-7 and C7-T1. There is no prevertebral soft tissue edema. IMPRESSION: There is mild reversal of cervical lordosis. This can be related to degenerative changes, positioning, muscle spasm, or posterior soft tissue injury. Mild narrowing of the left C6-7 and C7-T1 neural foramen by uncovertebral osteophytes. Assessment & Plan Assessment & Plan (1) Left shoulder pain: Code(s): M25.512 - Pain in left shoulder Category: Medical (2) Osteoarthritis of left shoulder: Code(s): M19.012 - Primary osteoarthritis, left shoulder Category: Medical (3) DDD (degenerative disc disease): Category: Medical (4) Cervical radiculopathy: Code(s): M54.12 - Radiculopathy, cervical region Category: Medical (5) Cervical post-laminectomy syndrome: Code(s): M96.1 - Postlaminectomy syndrome, not elsewhere classified Category: Medical Plan Patient obtained x-rays of the neck and shoulder after today's visit as noted above. An MRI of the neck is also planned to assess for neural integrity and compression. A left shoulder intra-articular steroid injection under fluoroscopy guidance is scheduled to manage the shoulder pain. All questions and concerns have been answered and patient agreed with the treatment plan. Follow up after injection/MRI results and sooner as needed. Patient was informed and verbally consented to the use of an ambient scribe for clinic note documentation during this visit. Orders: Orders 2 XR cervical spine 4V 02/04/25 ANNA Will M54.12 - Radiculopathy, cervical region, M62.838 - Other muscle spasm, M96.1 - Postlaminectomy syndrome, not elsewhere classified MR cervical spine wo/w con 02/04/25 ANNA Will M54.12 - Radiculopathy, cervical region, M96.1 - Postlaminectomy syndrome, not elsewhere classified XR shoulder LT min 2V 02/04/25 ANNA Will M19.012 - Primary osteoarthritis, left shoulder, M25.512 - Pain in left shoulder Medications: On Hold 2 nabumetone Hold Comment: Doctor's Order 750 mg PO BID 30 days PRN 60 tabs 0RF pain SURJIT Vo Coding Level of Care Code New Pt Level 4 (76864) Diagnoses Left shoulder pain M25.512 Osteoarthritis of left shoulder M19.012 DDD (degenerative disc disease) Cervical radiculopathy M54.12 Cervical post-laminectomy syndrome M96.1
[2025-02-04 12:59] VITALS: BP 175/95; PULSE 64; RESP 16; O2SAT 98; BMI 26.9
--- OUTSIDE RECORDS SUMMARY | 2025-02-04 15:00 | XMS_ITS | Clinical Summary ---
Author Organization [facility] Address [address] [place] [address] Care Team Providers Care Lure Maker Name Role Phone Seble Romero MD Primary [...] age to complete this topic Care Teams Lure Maker Relationship Specialty Start Date End Date Seble Romero MD [address] [facility] , [address] [facility] Physician Associ D/B/A: [facility] JOSE J Luna [id number] PCP - General Internal Medicine 02/21/17
--- OUTSIDE RECORDS SUMMARY | 2025-02-04 15:00 | XMS_ITS | Clinical Summary ---
Author Organization [facility] Address [address] [place] [address] Phone Care Team Providers Care Shower Attendant Name Role Phone Seble Oscar MD Primary Care Provider [phone] Allergies Active Allergy Reactions Criticality Noted Date Comments Prochlorperazine 09/10/2021 Medications No known medications Encounters Date Type Department Care Team Description 01/21/2025 10:57 AM EDT - 01/21/2025 12:10 PM EDT Emergency [facility] Emergency [address] [place] [address] Quentin Blunt MD Hematuria, unspecified type (Primary Dx) Discharge Disposition: Home or Self Care from Last 3 Months Surgical History Surgery Date Site/Laterality Comments CHOLECYSTECTOMY Medical History Medical History Date Comments HTN (hypertension) Social History Tobacco Use Types Packs/Day Years Used Date Smoking Tobacco: Never Smokeless Tobacco: Never Sex and Gender Information Value Date Recorded Sex Assigned at Not on file Legal Sex Male 10:35 AM EST Gender Identity Not on file Sexual Orientation Not on file Obstetrics History Last Filed Vital Signs Vital Sign Reading Time Taken Comments Blood Pressure 164/100 01/21/2025 11:05 AM EDT Pulse 66 01/21/2025 11:05 AM EDT Temperature 36.8 C (98.2 F) 01/21/2025 11:05 AM EDT Respiratory Rate 16 01/21/2025 11:05 AM EDT Oxygen Saturation 98% 01/21/2025 11:05 AM EDT Inhaled Oxygen Concentration - - Weight 73.9 kg (163 lb) 01/21/2025 9:41 AM EDT Height 162.6 cm (5' 4 ) 01/21/2025 9:41 AM EDT Body Mass Index 27.98 01/21/2025 9:41 AM EDT Plan of Treatment Health Maintenance Due Date Last Done Comments Hepatitis B Vaccines (1 of 3 - 19+ 3-dose series) 1984 Pneumococcal Vaccine: 50+ Years (1 of 1 - PCV) 08/03/2015 Cholesterol Screening (Lipid Panel) 05/02/2022 Colorectal Cancer Screening: Colonoscopy 05/02/2022 HIV Screening 05/02/2022 Hepatitis C Screening 05/02/2022 Social Influencers of Health Screening 05/02/2022 Zoster Vaccines (2 of 2) 11/11/2022 09/16/2022 Depression Screening 05/29/2024 COVID-19 Vaccine (4 - season) 2025 09/16/2022, 08/08/2020, 07/18/2020 Influenza Vaccine (#1) 2025 , 02/28/2023, 02/06/2017, Additional history exists DTaP,Tdap,and Td Vaccines (3 - Td or Tdap) 05/25/2032 05/25/2022, 03/15/2016 RSV Immunization Adult Patients (1 - 1-dose 75+ series) 2040 HIB [...] to complete this topic RSV Immunization Patients Under 20 months Aged Out No longer eligible based on patient's age to complete this topic Varicella Vaccines Aged Out No longer eligible based on patient's age to complete this topic Procedures Procedure Name Priority Date/Time Associated Diagnosis Comments CBC WITH AUTO DIFFERENTIAL STAT 01/21/2025 10:25 AM EDT COMPREHENSIVE METABOLIC PANEL STAT 01/21/2025 10:25 AM EDT CBC AND DIFFERENTIAL STAT 01/21/2025 10:25 AM EDT GRUBBS URINE CULTURE TUBE STAT 01/21/2025 9:30 AM EDT URINALYSIS WITH REFLEX MICROSCOPIC AND CULTURE STAT 01/21/2025 9:30 AM EDT URINALYSIS WITH REFLEX MICROSCOPIC AND CULTURE STAT 01/21/2025 9:30 AM EDT from Last 3 Months Results * CBC auto differential (01/21/2025 10:25 AM EDT) WBC 6.0 4.8 - 10.8 K/mcL LAB HEMETOLOGY METHOD 01/21/2025 10:39 AM [facility] RBC 5.00 4.50 - 5.50 M/[facility] LAB HEMETOLOGY METHOD 01/21/2025 10:39 AM [facility] Hemoglobin 14.5 13.5 - 17.5 g/dL LAB HEMETOLOGY METHOD 01/21/2025 10:39 AM [facility] Hematocrit 43.6 42.0 - 54.0 % LAB HEMETOLOGY METHOD 01/21/2025 10:39 AM [facility] MCV 86.5 79.0 - 98.0 FL LAB HEMETOLOGY METHOD 01/21/2025 10:39 AM [facility] MCH 28.8 27.0 - 32.0 pcg LAB HEMETOLOGY METHOD 01/21/2025 10:39 AM [facility] MCHC 33.3 32.0 - 37.0 g/dL LAB HEMETOLOGY METHOD 01/21/2025 10:39 AM [facility] RDW 13.2 11.0 - 15.0 % LAB HEMETOLOGY METHOD 01/21/2025 10:39 AM [facility] Platelets 274 130 - 400 K/mcL LAB HEMETOLOGY METHOD 01/21/2025 10:39 AM [facility] MPV 10.1 7.0 - 11.0 FL LAB HEMETOLOGY METHOD 01/21/2025 10:39 AM [facility] NRBC 0.0 <1.0 % LAB HEMETOLOGY METHOD 01/21/2025 10:39 AM [facility] NRBC Absolute 0.00 <0.10 K/mcL LAB HEMETOLOGY METHOD 01/21/2025 10:39 AM [facility] Neutrophils Relative 57.6 % LAB HEMETOLOGY METHOD 01/21/2025 10:39 AM [facility] Lymphocytes Relative 32.1 % LAB HEMETOLOGY METHOD 01/21/2025 10:39 AM [facility] Monocytes Relative 7.5 % LAB HEMETOLOGY METHOD 01/21/2025 10:39 AM [facility] Eosinophils Relative 1.8 % LAB HEMETOLOGY METHOD 01/21/2025 10:39 AM [facility] Basophils Relative 0.7 % LAB HEMETOLOGY METHOD 01/21/2025 10:39 AM [facility] Immature Granulocytes Relative 0.3 % LAB HEMETOLOGY METHOD 01/21/2025 10:39 AM [facility] Neutrophils Absolute 3.44 1.50 - 7.00 K/mcL LAB HEMETOLOGY METHOD 01/21/2025 10:39 AM [facility] Lymphocytes Absolute 1.92 1.00 - 5.00 K/mcL LAB HEMETOLOGY METHOD 01/21/2025 10:39 AM [facility] Monocytes Absolute 0.45 0.20 - 1.00 K/mcL LAB HEMETOLOGY METHOD 01/21/2025 10:39 [facility] Eosinophils Absolute 0.11 0.00 - 0.50 K/mcL LAB HEMETOLOGY METHOD 01/21/2025 10:39 AM [facility] Basophils Absolute 0.04 0.00 - 0.20 K/mcL LAB HEMETOLOGY METHOD 01/21/2025 10:39 AM [facility] Immature Granulocytes Absolute 0.02 0.00 - 0.03 K/[facility] LAB HEMETOLOGY METHOD 01/21/2025 10:39 AM [facility] Blood Venous blood specimen / Unknown Venipuncture / Unknown 01/21/2025 10:25 AM EDT 01/21/2025 10:34 AM EDT us Mickey DAVIS LAB BLOOD ORDERABLES Final Result [facility] [address] [place] [address], * (ABNORMAL) Comprehensive metabolic panel (01/21/2025 10:25 AM EDT) Sodium 139 133 - 145 mmol/L LAB CHEMISTRY METHOD 01/21/2025 11:32 AM [facility] Potassium 4.3 3.5 - 5.5 mmol/L LAB CHEMISTRY METHOD 01/21/2025 11:32 AM [facility] Chloride 107 96 - 110 mmol/L LAB CHEMISTRY METHOD 01/21/2025 11:32 AM [facility] CO2 29 21 - 32 mmol/L LAB CHEMISTRY METHOD 01/21/2025 11:32 AM [facility] Anion Gap 3 3 - 11 LAB CHEMISTRY METHOD 01/21/2025 11:32 AM [facility] Glucose 106(H) 70 - 100 mg/dL LAB CHEMISTRY METHOD 01/21/2025 11:32 AM [facility] BUN 16 5 - 25 mg/dL LAB CHEMISTRY METHOD 01/21/2025 11:32 AM [facility] Creatinine 1.20 0.70 - 1.30 mg/dL LAB CHEMISTRY METHOD 01/21/2025 11:32 AM [facility] eGFR 70 >=60 mL/min/1. 73m2 LAB CHEMISTRY METHOD 01/21/2025 11:32 AM [facility] Comment:Calculation based on the Chronic Kidney Disease Epidemiology Collaboration (CKD-EPI) equation refit without adjustment for race. BUN/Creatinine Ratio 13.3 LAB CHEMISTRY METHOD 01/21/2025 11:32 AM [facility] Calcium 9.3 8.5 - 10.5 mg/dL LAB CHEMISTRY METHOD 01/21/2025 11:32 AM [facility] AST (SGOT) 34 10 - 42 unit/L LAB CHEMISTRY METHOD 01/21/2025 11:32 AM [facility] ALT (SGPT) 28 10 - 60 unit/L LAB CHEMISTRY METHOD 01/21/2025 11:32 AM [facility] Alkaline Phosphatase 87 42 - 121 unit/L LAB CHEMISTRY METHOD 01/21/2025 11:32 AM [facility] Total Protein 7.2 6.0 - 8.0 g/dL LAB CHEMISTRY METHOD 01/21/2025 11:32 AM [facility] Albumin 3.8 3.2 - 5.0 g/dL LAB CHEMISTRY METHOD 01/21/2025 11:32 AM [facility] Total Bilirubin 0.9 0.0 - 1.4 mg/dL LAB CHEMISTRY METHOD 01/21/2025 11:32 AM [facility] Blood Venous blood specimen / Unknown Venipuncture / Unknown 01/21/2025 10:25 AM EDT 01/21/2025 10:34 AM EDT Mickey DAVIS LAB BLOOD ORDERABLES Final Result [facility] [address] [place] [address], * Urinalysis with reflex microscopic and culture (01/21/2025 9:30 AM EDT) Specific [place] Urine 1.008 1.003 - 1.030 LAB URINALYSIS - AUTOMATED METHOD 01/21/2025 10:15 AM [facility] pH, Urine 7.5 5.0 - 8.0 pH LAB URINALYSIS - AUTOMATED METHOD 01/21/2025 10:15 AM [facility] Leukocytes, Urine Negative Negative LAB URINALYSIS - AUTOMATED METHOD 01/21/2025 10:15 AM [facility] Nitrite, Urine Negative Negative LAB URINALYSIS - AUTOMATED METHOD 01/21/2025 10:15 AM [facility] Protein, Urine Negative <=Trace mg/dL LAB URINALYSIS - AUTOMATED METHOD 01/21/2025 10:15 AM [facility] Glucose, Urine Negative Negative mg/dL LAB URINALYSIS - AUTOMATED METHOD 01/21/2025 10:15 AM [facility] Ketones, Urine Negative Negative mg/dL LAB URINALYSIS - AUTOMATED METHOD 01/21/2025 10:15 AM [facility] Urobilinogen, Urine 0.2 0.2 - 1.0 mg/dL LAB URINALYSIS - AUTOMATED METHOD 01/21/2025 10:15 AM [facility] Bilirubin, Urine Negative Negative LAB URINALYSIS - AUTOMATED METHOD 01/21/2025 10:15 AM [facility] Blood, Urine Negative Negative LAB URINALYSIS - AUTOMATED METHOD 01/21/2025 10:15 AM [facility] Urine Urine specimen obtained by clean catch procedure / Unknown Non-blood Collection / Unknown 01/21/2025 9:30 AM EDT 01/21/2025 10:06 AM EDT Mickey DAVIS LAB URINE ORDERABLES Final Result Performing Organization Address [facility]/ZIP Co de Phone Number [facility] [address] [place] [address], [place] [phone] * Grubbs urine culture tube (01/21/2025 9:30 AM EDT) Extra Tube Hold for add-ons. 01/21/2025 12:01 PM EDT [facility] Comment:Auto resulted. Urine Urine specimen obtained by clean catch procedure / Unknown Non-blood Collection / Unknown 01/21/2025 9:30 AM EDT 01/21/2025 10:06 AM EDT Mickey DAVIS LAB URINE ORDERABLES Final Result Performing Organization Address [facility]/ZIP Co de Phone Number [facility] [address] [place] [address], [place] [phone] from Last [address] [place] [address] [place] [address] PLAN Care Teams Shower Attendant Relationship Specialty Start Date End Date Selbe Oscar MD [address] [place] [address] , [address] [facility] D/B/A: [facility] [place] PCP - General Internal Medicine 02/21/17
== END 2025-02-04 13:22 | disposition home or self-care (01) ==
LOC: HO.PMC 12:38
PROVIDERS: PCP Internal Medicine; Visit Provider Nurse Practitioner Family
DX: M25.512 Pain in left shoulder (principal); M19.012 Primary osteoarthritis, left shoulder; M54.12 Radiculopathy, cervical region; M96.1 Postlaminectomy syndrome, not elsewhere classified
CPT/HCPCS: 99204

== ENCOUNTER → 2025-02-04 13:30 | Outpatient (BNV) | payer OTHER, SELFPAY | PROVIDERS: PCP Internal Medicine; Visit Provider Radiology Diagnostic Radiology | DX: M54.12 Radiculopathy, cervical region (principal); M25.512 Pain in left shoulder | CPT/HCPCS: 72050; 73030 ==

== ENCOUNTER 2025-02-06 12:43 | Outpatient (AMB) | payer OTHER, SELFPAY ==
--- NOTE | 2025-02-06 12:47 | A.OFFVIS_ITS ---
Vital Signs 02/06/25 12:58 Height 5 ft 2 in Weight 158 lb 11.725 oz BMI 29.0 BP 145/80 H Blood Pressure Location Lt brachial Position Sitting Pulse 73 Intake Visit Reasons: Nauseas / Gerd Intake Note: Maykel presents in the office as a new patient for nausea and GERD. CC: states that he has on and off pains in the abdomen and states he also has reflu as well. States that he has no irrgular bowel movements. Has stwo more pills of levafloxacin and then he is done! Clinical Cytogenetics Director Required: No Allergies prochlorperazine (From COMPAZINE) Allergy (Intermediate, Verified 02/06/25 12:59) DIFFICULTY BREATHING gabapentin Allergy (Mild, Verified 02/06/25 12:59) depression HPI HPI Nauseas / Gerd: Details: Assessment & Plan (1) History of colonoscopy: Comment: [id number]=ilhyu polyp repeat 2 years r/t poor prep (pt ate during prep. 02/1015 neg study Code(s): Z98.890 - Other specified postprocedural states Category: Surgical Plan Patient has been lost to follow-up since 2022 From the endoscopist report: (Dulcolax 10 mg daily starting 3 days and NO solids the day before next colon appt ) He denies eating any liquids the day of the prep, but he does suffer CIC at his baseline. He did not have any trouble with the prep either. I again confirm that he is ok and not straining if he takes his stool softener, but he also says that he does not need the stool softener when I go to the gym. I explain that straining is what causes the hemorrhoids and the rectal bleeding. ROV 2 years. Laboratory Tests 01/03/25 07:57 WBC 5.9 Hgb 15.8 Hct 45.2 Plt Count 223 Estimated GFR > 60 Fasting Glucose 101 H Total Bilirubin 1.4 H AST 39 H ALT 32 Alkaline Phosphatase 84 TSH 1.76 TODAY'S VISIT It appears the patient is here for new complaint of nausea and GERD. 2 weekds ago he started pham ving pain in the LLQ and at times in the RLQ and epigastrum. This was of sudden onset, and he can not identify any suspicious foods eaten, sick contacts, at about the same time as the onset of the pain he was started on nabumetone for pelvic pain and he also says that he drinks a pre workout supplement with a lot of caffeine. He presented to a local urgent care clinic in [place] and they did a urinalysis that seem to show an infection and put him on Levaquin. He has 2 days left to complete this. They told him to get an ultrasound for possible appendicitis, and he presented to his primary care provider but it appears that no study was ordered. He says that the pain starts in the left lower quadrant and sometimes in the right lower quadrant and sometimes in the epigastrium. Because it is moving I suspect this is of colonic or intestinal source. He has a associated nausea but no vomiting. He has a lot of fears hearing a hernia, and he also is asking for an endoscopy. I will order an endoscopy but we are booking out into March and I am not really convinced that this is a gastric pathology because of the location of the pain. Certainly this might shed light on the nausea. Given all of the broad considerations in the differential diagnosis I think a CAT scan would be a better study and will try to get that urgently. In the meantime I have told him to stop the nabumetone (it did not help with this pelvic pain anyway), and to give up his pre workout supplement. He can completes a Levaquin therapy and will do a course of Augmentin since the sounds more like diverticulitis or colonic infectious process than anything else. He had a colonoscopy in May of this year showing only minor diverticulitis and was otherwise normal. Return office visit in 3 weeks [facility] Medical History Screening for colon cancer Muscle spasms of neck OLIVA (nonalcoholic steatohepatitis) Bleeding hemorrhoids External thrombosed hemorrhoids Transaminitis Hearing loss Left shoulder pain Cervical radiculopathy Hematuria Lower back pain Disc degeneration, lumbar Pulmonary embolism Chronic fatigue Essential hypertension Mixed hyperlipidemia Surgical History History of colonoscopy H/O neck surgery History of rectal polypectomy Family History Father Dementia Mother Hypertension Diabetes Social History Housing: Apartment Alcohol intake: current Alcohol intake frequency: holidays/special occasions only Alcohol type: beer and hard liquor Patient Tobacco Use Status: Former Tobacco user e-Cigarette/Vaping Use: Never Used Second Hand Smoke Exposure: Yes service: No Current occupational status: employed Current occupational exposures/hazards: No Cognitive needs: No Hearing needs: No Vision needs: Yes Review of Systems Const Denies fatigue, Denies fever(s), Denies night sweats, Denies poor appetite and Denies weight loss ENT Reports Normal hearing present, Denies dental pain, Denies dysphagia, Denies hearing loss, Denies mouth pain, Denies odynophagia, Denies throat swelling, Denies tongue swelling and Reports other (Dentition adequate) Card Reports no additional complaints Resp Reports no additional complaints GI Details: Reports abdominal pain, Denies melena, Denies bloating, Denies hematochezia, Denies constipation, Denies GI cramping, Denies dysphagia, Denies excessive flatus, Denies early satiety, Reports heartburn, Denies diarrhea, Reports nausea, Denies odynophagia, Denies vomiting and Denies hematemesis Reports genital pain Skin/Breast Denies pruritus, Denies lesions, Denies rash and Denies jaundice Neuro Reports Normal hearing present and Denies Abnormal speech present Endo Denies fatigue Aller/Immun Denies throat swelling and Denies tongue swelling Physical Exam Vital Signs: Last Vital Signs Pulse 73 02/06/25 12:58 BP 145/80 H 02/06/25 12:58 BMI result Body Mass Index 29.0 Const General: cooperative, no acute distress, well developed and well groomed Nutritional Appearance: average body habitus and well nourished Orientation/consciousness: oriented to person, oriented to place and oriented to time Limitations: No language barrier HEENT Head: Yes normocephalic and Yes atraumatic Eyes General: appearance normal, both eyes and all related structures Pupils: Equal, round and reactive pupils present Neck Neck: Yes normal visual inspection and Yes no lymphadenopathy Thyroid: Thyroid normal Resp Effort & Inspection: normal respiratory effort and able to speak in complete sentences Auscultation: clear to auscultation bilaterally Cardio Rate: regular rate Rhythm: regular rhythm Heart sounds: Normal, physiologic split S2 sound present Peripheral pulses: radial pulses present and posterior tibial pulses present GI Inspection: No distended and No Abdominal panniculus present Palpation (GI): Soft to palpation, Tenderness to palpation present (GI) (Generalized but worse in the left lower quadrant), no guarding, not rigid and No hepatosplenomegaly present Percussion: Yes normal to percussion Auscultation: normal bowel sounds Rectal Exam - Male: Yes deferred Skin General skin exam: no rashes or lesions noted, turgor normal, skin not dry, no jaundice, No spider nevi and no striae Rashes: no rashes Nails: normal Neuro General: oriented to person, oriented to place and oriented to time Cranial nerves: Yes Equal, round and reactive pupils present and Yes Normal hearing present Speech: No Abnormal speech present Extrem General: Yes normal to inspection, No clubbing, No cyanosis and No edema Psych Appearance: grossly normal and well kempt Mental Status: mental status grossly normal Speech and movement: Normal speech and movement present Affect: normal affect Attitude: cooperative Thought process: Normal thought process present and not confabulating Thought content: Normal thought content present Insight: Limited insight present (Psych) Judgement: Limited judgement present (Psych) Assessment & Plan Assessment & Plan (1) GERD (gastroesophageal reflux disease): Code(s): K21.9 - Gastro-esophageal reflux disease without esophagitis Category: Medical (2) Nausea and vomiting: Code(s): R11.2 - Nausea with vomiting, unspecified Category: Medical (3) Generalized abdominal pain: Code(s): R10.84 - Generalized abdominal pain Category: Medical Plan It appears the patient is here for new complaint of nausea and GERD. 2 weekds ago he started pham ving pain in the LLQ and at times in the RLQ and epigastrum. This was of sudden onset, and he can not identify any suspicious foods eaten, sick contacts, at about the same time as the onset of the pain he was started on nabumetone for pelvic pain and he also says that he drinks a pre workout supplement with a lot of caffeine. He presented to a local urgent care clinic in [place] and they did a urinalysis that seem to show an infection and put him on Levaquin. He has 2 days left to complete this. They told him to get an ultrasound for possible appendicitis, and he presented to his primary care provider but it appears that no study was ordered. He says that the pain starts in the left lower quadrant and sometimes in the right lower quadrant and sometimes in the epigastrium. Because it is moving I suspect this is of colonic or intestinal source. He has a associated nausea but no vomiting. He has a lot of fears hearing a hernia, and he also is asking for an endoscopy. I will order an endoscopy but we are booking out into March and I am not really convinced that this is a gastric pathology because of the location of the pain. Certainly this might shed light on the nausea. Given all of the broad considerations in the differential diagnosis I think a CAT scan would be a better study and will try to get that urgently. In the meantime I have told him to stop the nabumetone (it did not help with this pelvic pain anyway), and to give up his pre workout supplement. He can completes a Levaquin therapy and will do a course of Augmentin since the sounds more like diverticulitis or colonic infectious process than anything else. He had a colonoscopy in May of this year showing only minor diverticulitis and was otherwise normal. Return office visit in 3 weeks Orders: Orders CT abdomen pelvis w IV con Today R10.84 - Generalized abdominal pain, R11.2 - Nausea with vomiting, unspecified Referrals GI Procedure Notification R11.2 - Nausea with vomiting, unspecified Medications: New amoxicillin-pot clavulanate 875-125 mg 1 tab PO BID 20 tabs 0RF 10 days R10.84 - Generalized abdominal pain dicyclomine 10 mg PO QID 90 caps 1RF On Hold nabumetone Hold Comment: Doctor's Order 750 mg PO BID 30 days PRN 60 tabs 0RF pain Coding Level of Care Code Est Pt Level 4 (41773) Diagnoses GERD (gastroesophageal reflux disease) K21.9 Nausea and vomiting R11.2 Generalized abdominal pain R10.84 Time Spent (min) 39
[2025-02-06 12:58] VITALS: BP 145/80; PULSE 73; BMI 29.0
--- OUTSIDE RECORDS SUMMARY | 2025-02-06 16:54 | XMS_ITS | Clinical Summary ---
Author Organization [facility] Address [address] [place] [address] Phone Care Team Providers Care Assistant Associate Full Professor Name Role Phone Seble Oscar MD Primary Care Provider [phone] Allergies Active Allergy Reactions Criticality Noted Date Comments Prochlorperazine 09/10/2021 Medications No known medications Encounters Date Type Department Care Team Description 01/21/2025 10:57 AM EDT - 01/21/2025 12:10 PM EDT Emergency [facility] Emergency [address] [place] [address] Quentin Blunt MD Hematuria, unspecified [...] K/mcL LAB HEMETOLOGY METHOD 01/21/2025 10:39 AM [facility] RBC 5.00 4.50 - 5.50 M/[facility] LAB HEMETOLOGY METHOD 01/21/2025 10:39 AM [facility] Hemoglobin 14.5 13.5 - 17.5 g/dL LAB HEMETOLOGY METHOD 01/21/2025 10:39 AM [facility] Hematocrit 43.6 42.0 - 54.0 % LAB HEMETOLOGY METHOD 01/21/2025 10:39 AM [facility] MCV 86.5 79.0 - 98.0 FL LAB HEMETOLOGY METHOD 01/21/2025 10:39 AM [facility] MCH 28.8 27.0 - 32.0 pcg LAB HEMETOLOGY METHOD 01/21/2025 10:39 AM [facility] MCHC 33.3 32.0 - 37.0 g/dL LAB HEMETOLOGY METHOD 01/21/2025 10:39 AM [facility] RDW 13.2 11.0 - 15.0 % LAB HEMETOLOGY METHOD 01/21/2025 10:39 AM [facility] Platelets 274 130 - 400 K/mcL LAB HEMETOLOGY METHOD 01/21/2025 10:39 AM [facility] MPV 10.1 7.0 - 11.0 FL LAB HEMETOLOGY METHOD 01/21/2025 10:39 AM [facility] NRBC 0.0 <1.0 % LAB HEMETOLOGY METHOD 01/21/2025 10:39 AM [facility] NRBC Absolute 0.00 <0.10 K/mcL LAB HEMETOLOGY METHOD 01/21/2025 10:39 AM [facility] Neutrophils Relative 57.6 % LAB HEMETOLOGY METHOD 01/21/2025 10:39 AM [facility] Lymphocytes Relative 32.1 % LAB HEMETOLOGY METHOD 01/21/2025 10:39 AM [facility] Monocytes Relative 7.5 % LAB HEMETOLOGY METHOD 01/21/2025 10:39 AM [facility] Eosinophils Relative 1.8 % LAB HEMETOLOGY METHOD 01/21/2025 10:39 AM [facility] Basophils Relative 0.7 % LAB HEMETOLOGY METHOD 01/21/2025 10:39 AM [facility] Immature Granulocytes Relative 0.3 % LAB HEMETOLOGY METHOD 01/21/2025 10:39 AM [facility] Neutrophils Absolute 3.44 1.50 - 7.00 K/mcL LAB HEMETOLOGY METHOD 01/21/2025 10:39 AM [facility] Lymphocytes Absolute 1.92 1.00 - 5.00 K/mcL LAB HEMETOLOGY METHOD 01/21/2025 10:39 AM [facility] Monocytes Absolute 0.45 0.20 - 1.00 K/mcL LAB HEMETOLOGY METHOD [facility] Eosin[facility] Absolute 0.11 0.00 - 0.50 K/mcL LAB HEMETOLOGY METHOD 01/21/2025 10:39 AM [facility] Basophils Absolute 0.04 0.00 - 0.20 K/mcL LAB HEMETOLOGY METHOD 01/21/2025 10:39 AM [facility] Immature Granulocytes Absolute 0.02 0.00 - 0.03 K/[facility] LAB HEMETOLOGY METHOD 01/21/2025 10:39 AM [facility] Blood Venous blood specimen / Unknown Venipuncture / Unknown 01/21/2025 10:25 AM EDT 01/21/2025 10:34 AM EDT us Mickey DAVIS LAB BLOOD ORDERABLES Final Result [facility] [address] [place] [address], * (ABNORMAL) Comprehensive metabolic panel (01/21/2025 10:25 AM EDT) Sodium 139 133 - 145 mmol/L LAB CHEMISTRY METHOD 01/21/2025 11:32 AM [facility] Potassium 4.3 3.5 - 5.5 mmol/L LAB CHEMISTRY METHOD 01/21/2025 11:32 AM [facility] Chloride 107 96 - 110 mmol/L LAB CHEMISTRY METHOD 01/21/2025 11:32 AM [facility] CO2 29 21 - 32 mmol/L LAB CHEMISTRY METHOD 01/21/2025 11:32 AM [facility] Anion Gap 3 3 - 11 LAB CHEMISTRY METHOD 01/21/2025 11:32 AM [facility] Glucose 106(H) 70 - 100 mg/dL LAB CHEMISTRY METHOD 01/21/2025 11:32 AM [facility] BUN 16 5 - 25 mg/dL LAB CHEMISTRY METHOD 01/21/2025 11:32 AM [facility] Creatinine 1.20 0.70 - 1.30 mg/dL LAB CHEMISTRY METHOD 01/21/2025 11:32 AM [facility] eGFR 70 >=60 mL/min/1. 73m2 LAB CHEMISTRY METHOD 01/21/2025 11:32 AM [facility] Comment:Calculation based on the Chronic Kidney Disease Epidemiology Collaboration (CKD-EPI) equation refit without adjustment for race. BUN/Creatinine Ratio 13.3 LAB CHEMISTRY METHOD 01/21/2025 11:32 AM [facility] Calcium 9.3 8.5 - 10.5 mg/dL LAB CHEMISTRY METHOD 01/21/2025 11:32 AM [facility] AST (SGOT) 34 10 - 42 unit/L LAB CHEMISTRY METHOD 01/21/2025 11:32 AM [facility] ALT (SGPT) 28 10 - 60 unit/L LAB CHEMISTRY METHOD 01/21/2025 11:32 AM [facility] Alkaline Phosphatase 87 42 - 121 unit/L LAB CHEMISTRY METHOD 01/21/2025 11:32 AM [facility] Total Protein 7.2 6.0 - 8.0 g/dL LAB CHEMISTRY METHOD 01/21/2025 11:32 AM [facility] Albumin 3.8 3.2 - 5.0 g/dL LAB CHEMISTRY METHOD 01/21/2025 11:32 AM [facility] Total Bilirubin 0.9 0.0 - 1.4 mg/dL LAB CHEMISTRY METHOD 01/21/2025 11:32 AM [facility] Blood Venous blood specimen / Unknown Venipuncture / Unknown 01/21/2025 10:25 AM EDT 01/21/2025 10:34 AM EDT Mickey DAVIS LAB BLOOD ORDERABLES Final Result [facility] [address] [place] [address], * Urinalysis with reflex microscopic and culture (01/21/2025 9:30 AM EDT) Specific [place] Urine 1.008 1.003 - 1.030 LAB URINALYSIS - AUTOMATED METHOD 01/21/2025 10:15 AM [facility] pH, Urine 7.5 5.0 - 8.0 pH LAB URINALYSIS - AUTOMATED METHOD 01/21/2025 10:15 AM [facility] Leukocytes, Urine Negative Negative LAB URINALYSIS - AUTOMATED METHOD 01/21/2025 10:15 AM [facility] Nitrite, Urine Negative Negative LAB URINALYSIS - AUTOMATED METHOD 01/21/2025 10:15 AM [facility] Protein, Urine Negative <=Trace mg/dL LAB URINALYSIS - AUTOMATED METHOD 01/21/2025 10:15 AM [facility] Glucose, Urine Negative Negative mg/dL LAB URINALYSIS - AUTOMATED METHOD 01/21/2025 10:15 AM [facility] Ketones, Urine Negative Negative mg/dL LAB URINALYSIS - AUTOMATED METHOD 01/21/2025 10:15 AM [facility] Urobilinogen, Urine 0.2 0.2 - 1.0 mg/dL LAB URINALYSIS - AUTOMATED METHOD 01/21/2025 10:15 AM [facility] Bilirubin, Urine Negative Negative LAB URINALYSIS - AUTOMATED METHOD 01/21/2025 10:15 AM [facility] Blood, Urine Negative Negative LAB URINALYSIS - AUTOMATED METHOD 01/21/2025 10:15 AM [facility] Urine Urine specimen obtained by clean catch procedure / Unknown Non-blood Collection / Unknown 01/21/2025 9:30 AM EDT 01/21/2025 10:06 AM EDT Mickey DAVIS LAB URINE ORDERABLES Final Result Performing Organization Address [facility]/ZIP Co de Phone Number [facility] [address] [place] [address], [place] [phone] * Grubbs urine culture tube (01/21/2025 9:30 AM EDT) Extra Tube Hold for add-ons. 01/21/2025 12:[address] [facility] Comment:Auto resulted. Urine Urine specimen obtained by clean catch procedure / Unknown Non-blood Collection / Unknown 01/21/2025 9:30 AM EDT 01/21/2025 10:06 AM EDT Mickey DAVIS LAB URINE ORDERABLES Final Result Performing Organization Address [facility]/ZIP Co de Phone Number [facility] [address] [place] [address], [place] [phone] from Last [address] [place] [address] PLAN Care Teams Assistant Associate Full Professor Relationship Specialty Start Date End Date Seble Oscar MD [address] [place] [address] , [address] [facility] D/B/A: [facility] Jeremy ND PCP - General Internal Medicine 02/21/17
--- OUTSIDE RECORDS SUMMARY | 2025-02-06 16:54 | XMS_ITS | Clinical Summary ---
Author Organization [facility] Address [address] [place] [address] Care Team Providers Care Manager Call Name Role Phone Seble Romero MD Primary [...] age to complete this topic Care Teams Manager Call Relationship Specialty Start Date End Date Seble Romero MD [address] [facility] , [address] [facility] D/B/A: [facility] [place] [id number] PCP - General Internal Medicine 02/21/17
== END 2025-02-06 14:10 | disposition home or self-care (01) ==
LOC: HO.HGI 12:43
PROVIDERS: PCP Internal Medicine; Visit Provider Nurse Practitioner
DX: K21.9 Gastro-esophageal reflux disease without esophagitis (principal); R11.2 Nausea with vomiting, unspecified; R10.84 Generalized abdominal pain
CPT/HCPCS: 99214

== ENCOUNTER → 2025-02-06 12:43 | Outpatient (BNVA) | payer OTHER, SELFPAY | PROVIDERS: PCP Internal Medicine; Visit Provider Nurse Practitioner | DX: K21.9 Gastro-esophageal reflux disease without esophagitis (principal); R11.2 Nausea with vomiting, unspecified; R10.84 Generalized abdominal pain | CPT/HCPCS: 99212 ==

== ENCOUNTER 2025-02-13 14:54 | Outpatient (AMB) | payer OTHER, SELFPAY ==
--- NOTE | 2025-02-13 14:56 | A.OFFVIS_ITS ---
Vital Signs 3 02/13/25 15:01 Height 5 ft 4 in Weight 160 lb 2 oz BMI 27.5 BP 172/103 H Blood Pressure Location Rt brachial Position Sitting Pulse 68 Pulse Source Pulse Oximeter Pulse Oximetry (%) 98 Oxygen Delivery Method Room Air Intake Visit Reasons: Discuss X-Ray Results Intake Note: Pain today 12/05 Prompt Care Rn Required: No Accompanied by: Self / Same As Patient Allergies prochlorperazine (From COMPAZINE) Allergy (Intermediate, Verified 02/13/25 15:02) DIFFICULTY BREATHING gabapentin Allergy (Mild, Verified 02/13/25 15:02) depression HPI Comments Details: The patient is a 59-year-old male presenting with chronic neck and shoulder pain. The patient has a history of cervical discectomy and fusion at C6-C7, with intact hardware as confirmed by recent imaging. Imaging studies reveal bone spurs in the cervical spine and left shoulder with degenerative changes and mild narrowing of the left C6-7 and C7-T1 neural foramen, causing persistent neck pain and left shoulder pain. The patient experiences numbness and tingling in the fingers, consistent with the level of neuroforaminal narrowing. He has undergone physical therapy for two years, which he finds beneficial, but insurance requires further therapy before approving updated cervical MRI. His insurance has approved an injection for the left shoulder, and he is interested with scheduling it. Denies any recent cough, cold, infection, fever or any other significant changes in medical history since last office visit. PRIOR: The patient is a 59-year-old male presenting with left shoulder pain and neck pain. The neck pain radiates to the left arm, and he has a history of cervical surgery, ACDF C6-C7 performed by Dr. Willson in 2020. He was previously managed by Dr. Handy from 2019 to 2020, receiving interventional treatments, including neck and lumbar injections with some relief. The shoulder and neck pain are worse in the morning, with a severity of 7 out of 10. The pain is constant and described as pulsing, throbbing, burning, pinching, cramping, and tightness with grazing sensations. He denies any recent injury, trauma, or falls. Physical therapy was completed earlier this year with minimal relief, and administrator health care facility was sought about 3 years ago. The patient reports numbness and tingling in the left arm and leg, which sometimes affects the left leg. He denies any spine imaging since worsening of his neck symptoms and completion of PT. Patient reports he was told he needs left shoulder surgery about 2 years ago at [facility] but has been hesitant towards surgery. He is interested to undergo therapeutic shoulder injection with fluoroscopy guidance prior Orthopedic follow-up surgical re-evaluation. - Onset and Timing: Chronic pain for many years, progressively is worse in the morning, constant throughout the day. - Quality and Character: Described as pulsing, throbbing, burning, pinching, cramping, tightness, and grazing sensations. - Primary Location: Left shoulder and neck, radiating to the left arm. - Exacerbating Factors: Worse in the morning. 12/05 with activities - Relieving Factors: Temporary relief from physical therapy. - Affect: Pain impacts daily activities and causes discomfort. - Analgesia: Previously received neck and lumbar injections with some relief. - Activities of Daily Living: Pain affects the ability to perform daily tasks, especially in the morning. PRIOR 05/08/21 Dr. Handy: Mr. Tirado came to my office again after long period of absence. He was on interventional program here with epidural steroid injections. I performed transforaminal cervical on the left epidural steroid injection on the request of Dr. Willson. Patient had prolonged pain relief. That led Dr. Willson to perform a cervical surgery on the patient. He also complains on pain in lower back and I performed injections on him in the lower back transforaminal epidural steroid injections RIGHT L5-S1 & LEFT L4-L5 TFESI 04/07/20 He reported very good pain relief with the injections, unfortunately he contracted COVID-19 and developed pulmonary embolism. He was placed on Eliquis by primary care physician for at least 6 months with no possibility of stopping this medication. After that he will be re-evaluated and possibly we can stop the medications temporarily. Therefore for the next 3 months I cannot perform any injections for him because of the blood thinner medications. I offered him to become chronic opioid therapy patient at least temporarily until the Eliquis which is possible to stop. I gave him the information on chronic opioid therapy pages to read and PHQ questionnaire to fill up. After quick reading of the opioid risk page patient decided not to go for chronic opioid therapy. He said that he will go to his chiropractor and try to temporize his pain by chiropractor in the future. I will schedule this patient for next injection only after 6 months that he had Eliquis prescribed for him. 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 [facility] Medical History Screening for colon cancer Muscle spasms of neck OLIVA (nonalcoholic steatohepatitis) Bleeding hemorrhoids External thrombosed hemorrhoids Transaminitis Hearing loss Left shoulder pain Cervical radiculopathy Hematuria Lower back pain Disc degeneration, lumbar Pulmonary embolism Chronic fatigue Essential hypertension Mixed hyperlipidemia Surgical History History of colonoscopy H/O neck surgery History of rectal polypectomy Family History Father Dementia Mother Hypertension Diabetes Social History Housing: Apartment Alcohol intake: current Alcohol intake frequency: holidays/special occasions only Alcohol type: beer and hard liquor Patient Tobacco Use Status: Former Tobacco user e-Cigarette/Vaping Use: Never Used Second Hand Smoke Exposure: Yes service: No Current occupational status: employed Current occupational exposures/hazards: No Cognitive needs: No Hearing needs: No Vision needs: Yes Review of Systems Const All systems reviewed & are unremarkable except as noted in HPI and below Physical Exam Vital Signs: Last Vital Signs Pulse 68 02/13/25 15:01 BP 172/103 H 02/13/25 15:01 Pulse Ox 98 02/13/25 15:01 Oxygen Delivery Method Room Air 02/13/25 15:01 BMI result Body Mass Index 27.5 General: Appears afebrile. Alert and oriented. Mood and affect appropriate. Follows and participates in conversation appropriately. Respiratory effort is unlabored. No cough. Able to transition from sit to stand unassisted. Ambulates with bilaterally normal heel strike and toe off. Neck Other: Patient with decreased cervical ROM in all planes/especially with left lateral rotation. Reports increased pain with cervical extension and flexion. Spurling compression test equivocal. Elvey's tension test positive on the right, with radiation of pain from neck to wrist and tingling in hand. Lhermitte's test was negative. DTR intact, +2 and symmetrical. Patient demonstrated 5/5 left and 4/5 right motor strength of bilateral upper extremities. 2 + radial pulses. Significant tightness throughout right upper trapezius as well as TTP throughout bilateral upper trapezius muscles. No paravertebral tenderness over facet joint on affected side. Neck: Yes normal visual inspection, Yes no lymphadenopathy, Yes supple, No anterior neck swelling, Yes no JVD, No prominent supraclavicular fat pad and No prominent dorsocervical fat pad Back/Spine/Pelvis Cervical Spine: No collar present, cervical muscular tenderness, pain with cervical ROM, Cervical spine scars present, cervical spasm, No Cervical spine tenderness and No step off deformity Thoracic/Lumbar Spine: thoracic and lumbar spine normal to inspection, No Thoracic/lumbar spine scar(s), No thoracic spinal tenderness and No lumbar spinal tenderness Extrem General: Yes capillary refill normal, Yes no clubbing, cyanosis or edema and Yes no calf tenderness Left upper extremity: shoulder/upper arm (Limited ROM due to pain, worse with overhead reaches) Details: inspection abnormal, tenderness Location: over the biceps tendon and over the subacromial bursa, axillary nerve sensory function normal and crepitus; no swelling, no ecchymosis and no unsual warmth Results Reviewed Results Reviewed: XR SHOULDER, LEFT 02/04/25 CLINICAL INFORMATION: M25.512 - Pain in left shoulder COMPARISON: None available. TECHNIQUE: AP external rotation, Grashey, scapular Y, and axillary views of the left shoulder. FINDINGS: Small humeral head marginal osteophytes are present. There is no dislocation. There is no fracture. AC joint is intact and not degenerated. IMPRESSION: Mild degenerative changes of the left shoulder joint. XR CERVICAL SPINE 02/04/25 CLINICAL INFORMATION: M54.12 - Radiculopathy, cervical region COMPARISON: 05/15/2020 TECHNIQUE: 5 views of the cervical spine were obtained. FINDINGS: There is mild reversal of the normal cervical lordosis. No fractures are identified. Again noted are changes related to anterior cervical discectomy and fusion at C6-7. Hardware appears intact. Uncovertebral osteophytes narrow the left neural foramen at C6-7 and C7-T1. There is no prevertebral soft tissue edema. IMPRESSION: There is mild reversal of cervical lordosis. This can be related to degenerative changes, positioning, muscle spasm, or posterior soft tissue injury. Mild narrowing of the left C6-7 and C7-T1 neural foramen by uncovertebral osteophytes. Assessment & Plan Assessment & Plan (1) Disc degeneration, lumbar: Code(s): M51.36 - Other intervertebral disc degeneration, lumbar region Category: Medical (2) Lower back pain: Code(s): M54.5 - Low back pain Category: Medical Qualifiers: Chronicity: acute Back pain laterality: bilateral Sciatica presence: u nspecified whether sciatica present Qualified Code(s): M54.5 - Low back pain (3) Cervical radiculopathy: Code(s): M54.12 - Radiculopathy, cervical region Category: Medical (4) Left shoulder pain: Code(s): M25.512 - Pain in left shoulder Category: Medical (5) Cervical post-laminectomy syndrome: Code(s): M96.1 - Postlaminectomy syndrome, not elsewhere classified Category: Medical (6) Cervicalgia: Code(s): M54.2 - Cervicalgia Category: Medical Plan Cervical spine and left shoulder xray results were reviewed with patient today. A left shoulder injection has been approved and will be scheduled today to address mild arthritis and degenerative changes. Continued physical therapy is recommended to manage neck and shoulder pain, with a printout order provided for therapy specific to patient's requested location due to previous PT sessions completed there and home proximity. Plan to follow up with updated cervical MRI post PT. All questions and concerns have been answered and patient agreed with the treatment plan. Follow up after injection/PT and sooner as needed. Patient was informed and verbally consented to the use of an ambient scribe for clinic note documentation during this visit. Orders: Orders 2 PT Evaluation and Treatment Today M25.512 - Pain in left shoulder, M51.36 - Other intervertebral disc degeneration, lumbar region, M54.12 - Radiculopathy, cervical region, M54.2 - Cervicalgia, M54.5 - Low back pain, M96.1 - Postlaminectomy syndrome, not elsewhere classified Coding Level of Care Code Est Pt Level 4 (15416) Complex EM visit Add On G2211 Diagnoses Disc degeneration, lumbar M51.36 Acute bilateral low back pain, unspecified whether sciatica present M54.5 Chronicity: acute Back pain laterality: bilateral Sciatica presence: unspecified whether sciatica present Cervical radiculopathy M54.12 Left shoulder pain M25.512 Cervical post-laminectomy syndrome M96.1 Cervicalgia M54.2
[2025-02-13 15:01] VITALS: BP 172/103; PULSE 68; O2SAT 98; BMI 27.5
--- OUTSIDE RECORDS SUMMARY | 2025-02-13 16:34 | XMS_ITS | Clinical Summary ---
Author Organization [facility] Address [address] [place] [address] Phone Care Team Providers Care [employer] Dispatcher Name Role Phone Seble Oscar MD Primary Care Provider [phone] Allergies Active Allergy Reactions Criticality Noted Date Comments Prochlorperazine 09/10/2021 Medications No known medications Encounters Date Type Department Care Team Description 01/21/2025 10:57 AM EDT - 01/21/2025 12:10 PM EDT Emergency [facility] Emergency [address] [place] [address] Quentin Blunt MD Hematuria, unspecified [...] K/mcL LAB HEMETOLOGY METHOD 01/21/2025 10:39 AM [facility] RBC 5.00 4.50 - 5.50 M/[facility] LAB HEMETOLOGY METHOD 01/21/2025 10:39 AM [facility] Hemoglobin 14.5 13.5 - 17.5 g/dL LAB HEMETOLOGY METHOD 01/21/2025 10:39 AM [facility] Hematocrit 43.6 42.0 - 54.0 % LAB HEMETOLOGY METHOD 01/21/2025 10:39 AM [facility] MCV 86.5 79.0 - 98.0 FL LAB HEMETOLOGY METHOD 01/21/2025 10:39 AM [facility] MCH 28.8 27.0 - 32.0 pcg LAB HEMETOLOGY METHOD 01/21/2025 10:39 AM [facility] MCHC 33.3 32.0 - 37.0 g/dL LAB HEMETOLOGY METHOD 01/21/2025 10:39 AM [facility] RDW 13.2 11.0 - 15.0 % LAB HEMETOLOGY METHOD 01/21/2025 10:39 AM [facility] Platelets 274 130 - 400 K/mcL LAB HEMETOLOGY METHOD 01/21/2025 10:39 AM [facility] MPV 10.1 7.0 - 11.0 FL LAB HEMETOLOGY METHOD 01/21/2025 10:39 AM [facility] NRBC 0.0 <1.0 % LAB HEMETOLOGY METHOD 01/21/2025 10:39 AM [facility] NRBC Absolute 0.00 <0.10 K/mcL LAB HEMETOLOGY METHOD 01/21/2025 10:39 AM [facility] Neutrophils Relative 57.6 % LAB HEMETOLOGY METHOD 01/21/2025 10:39 AM [facility] Lymphocytes Relative 32.1 % LAB HEMETOLOGY METHOD 01/21/2025 10:39 AM [facility] Monocytes Relative 7.5 % LAB HEMETOLOGY METHOD 01/21/2025 10:39 AM [facility] Eosinophils Relative 1.8 % LAB HEMETOLOGY METHOD 01/21/2025 10:39 AM [facility] Basophils Relative 0.7 % LAB HEMETOLOGY METHOD 01/21/2025 10:39 AM [facility] Immature Granulocytes Relative 0.3 % LAB HEMETOLOGY METHOD 01/21/2025 10:39 AM [facility] Neutrophils Absolute 3.44 1.50 - 7.00 K/mcL LAB HEMETOLOGY METHOD 01/21/2025 10:39 AM [facility] Lymphocytes Absolute 1.92 1.00 - 5.00 K/mcL LAB HEMETOLOGY METHOD 01/21/2025 10:39 AM [facility] Monocytes Absolute 0.45 0.20 - 1.00 K/mcL LAB [facility]OLOG[facility] Eosin[facility] Absolute 0.11 0.00 - 0.50 K/mcL LAB HEMETOLOGY METHOD 01/21/2025 10:39 AM [facility] Basophils Absolute 0.04 0.00 - 0.20 K/mcL LAB HEMETOLOGY METHOD 01/21/2025 10:39 AM [facility] Immature Granulocytes Absolute 0.02 0.00 - 0.03 K/[facility] LAB HEMETOLOGY METHOD 01/21/2025 10:39 AM [facility] Blood Venous blood specimen / Unknown Venipuncture / Unknown 01/21/2025 10:25 AM EDT 01/21/2025 10:34 AM EDT us Mickey DAVIS LAB BLOOD ORDERABLES Final Result [facility] [address] [place] [address], * (ABNORMAL) Comprehensive metabolic panel (01/21/2025 10:25 AM EDT) Sodium 139 133 - 145 mmol/L LAB CHEMISTRY METHOD 01/21/2025 11:32 AM [facility] Potassium 4.3 3.5 - 5.5 mmol/L LAB CHEMISTRY METHOD 01/21/2025 11:32 AM [facility] Chloride 107 96 - 110 mmol/L LAB CHEMISTRY METHOD 01/21/2025 11:32 AM [facility] CO2 29 21 - 32 mmol/L LAB CHEMISTRY METHOD 01/21/2025 11:32 AM [facility] Anion Gap 3 3 - 11 LAB CHEMISTRY METHOD 01/21/2025 11:32 AM [facility] Glucose 106(H) 70 - 100 mg/dL LAB CHEMISTRY METHOD 01/21/2025 11:32 AM [facility] BUN 16 5 - 25 mg/dL LAB CHEMISTRY METHOD 01/21/2025 11:32 AM [facility] Creatinine 1.20 0.70 - 1.30 mg/dL LAB CHEMISTRY METHOD 01/21/2025 11:32 AM [facility] eGFR 70 >=60 mL/min/1. 73m2 LAB CHEMISTRY METHOD 01/21/2025 11:32 AM [facility] Comment:Calculation based on the Chronic Kidney Disease Epidemiology Collaboration (CKD-EPI) equation refit without adjustment for race. BUN/Creatinine Ratio 13.3 LAB CHEMISTRY METHOD 01/21/2025 11:32 AM [facility] Calcium 9.3 8.5 - 10.5 mg/dL LAB CHEMISTRY METHOD 01/21/2025 11:32 AM [facility] AST (SGOT) 34 10 - 42 unit/L LAB CHEMISTRY METHOD 01/21/2025 11:32 AM [facility] ALT (SGPT) 28 10 - 60 unit/L LAB CHEMISTRY METHOD 01/21/2025 11:32 AM [facility] Alkaline Phosphatase 87 42 - 121 unit/L LAB CHEMISTRY METHOD 01/21/2025 11:32 AM [facility] Total Protein 7.2 6.0 - 8.0 g/dL LAB CHEMISTRY METHOD 01/21/2025 11:32 AM [facility] Albumin 3.8 3.2 - 5.0 g/dL LAB CHEMISTRY METHOD 01/21/2025 11:32 AM [facility] Total Bilirubin 0.9 0.0 - 1.4 mg/dL LAB CHEMISTRY METHOD 01/21/2025 11:32 AM [facility] Blood Venous blood specimen / Unknown Venipuncture / Unknown 01/21/2025 10:25 AM EDT 01/21/2025 10:34 AM EDT Mickey DAVIS LAB BLOOD ORDERABLES Final Result [facility] [address] [place] [address], * Urinalysis with reflex microscopic and culture (01/21/2025 9:30 AM EDT) Specific [place] Urine 1.008 1.003 - 1.030 LAB URINALYSIS - AUTOMATED METHOD 01/21/2025 10:15 AM [facility] pH, Urine 7.5 5.0 - 8.0 pH LAB URINALYSIS - AUTOMATED METHOD 01/21/2025 10:15 AM [facility] Leukocytes, Urine Negative Negative LAB URINALYSIS - AUTOMATED METHOD 01/21/2025 10:15 AM [facility] Nitrite, Urine Negative Negative LAB URINALYSIS - AUTOMATED METHOD 01/21/2025 10:15 AM [facility] Protein, Urine Negative <=Trace mg/dL LAB URINALYSIS - AUTOMATED METHOD 01/21/2025 10:15 AM [facility] Glucose, Urine Negative Negative mg/dL LAB URINALYSIS - AUTOMATED METHOD 01/21/2025 10:15 AM [facility] Ketones, Urine Negative Negative mg/dL LAB URINALYSIS - AUTOMATED METHOD 01/21/2025 10:15 AM [facility] Urobilinogen, Urine 0.2 0.2 - 1.0 mg/dL LAB URINALYSIS - AUTOMATED METHOD 01/21/2025 10:15 AM [facility] Bilirubin, Urine Negative Negative LAB URINALYSIS - AUTOMATED METHOD 01/21/2025 10:15 AM [facility] Blood, Urine Negative Negative LAB URINALYSIS - AUTOMATED METHOD 01/21/2025 10:15 AM [facility] Urine Urine specimen obtained by clean catch procedure / Unknown Non-blood Collection / Unknown 01/21/2025 9:30 AM EDT 01/21/2025 10:06 AM EDT Mickey DAVIS LAB URINE ORDERABLES Final Result Performing Organization Address [facility]/ZIP Co de Phone Number [facility] [address] [place] [address], [place] [phone] * Grubbs urine culture tube (01/21/2025 9:30 AM EDT) Extra Tube Hold for add-ons. 01/21/2025 12:01 PM EDT [facility] Comment:Auto resulted. Urine Urine specimen obtained by clean catch procedure / Unknown Non-blood Collection / Unknown 01/21/2025 9:30 AM EDT 01/21/2025 10:06 AM EDT Mickey DAVIS LAB URINE ORDERABLES Final Result Performing Organization Address [facility]/ZIP Co de Phone Number [facility] [address] [place] [address], [place] [phone] from Last [address] [place] [address] [place] [address] PLAN Care Teams [employer] Dispatcher Relationship Specialty Start Date End Date Seble Oscar MD [address] [place] [address] , [address] [facility] D/B/A: [facility] Jeremy MS PCP - General Internal Medicine 02/21/17
--- OUTSIDE RECORDS SUMMARY | 2025-02-13 16:34 | XMS_ITS | Clinical Summary ---
Author Organization [facility] Address [address] [place] [address] Care Team Providers Care Core Cutter Name Role Phone Seble Romero MD Primary [...] age to complete this topic Care Teams Core Cutter Relationship Specialty Start Date End Date Seble Romero MD [address] [facility] , [address] [facility] D/B/A: [facility] JO[place] J [place] [id number] PCP - General Internal Medicine 02/21/17
== END 2025-02-13 15:20 | disposition home or self-care (01) ==
LOC: HO.PMC 14:55
PROVIDERS: PCP Internal Medicine; Visit Provider Nurse Practitioner Family
DX: M51.369 Other intervertebral disc degeneration, lumbar region without mention of lumbar back pain or lower extremity pain (principal); M54.50 Low back pain, unspecified; M54.12 Radiculopathy, cervical region; M25.512 Pain in left shoulder; M96.1 Postlaminectomy syndrome, not elsewhere classified; M54.2 Cervicalgia
CPT/HCPCS: 99214

== ENCOUNTER → 2025-02-13 14:54 | Outpatient (BNVA) | payer OTHER, SELFPAY | PROVIDERS: PCP Internal Medicine; Visit Provider Nurse Practitioner Family | DX: M54.12 Radiculopathy, cervical region (principal); M54.50 Low back pain, unspecified; M25.512 Pain in left shoulder; M54.2 Cervicalgia; M51.369 Other intervertebral disc degeneration, lumbar region without mention of lumbar back pain or lower extremity pain; M96.1 Postlaminectomy syndrome, not elsewhere classified | CPT/HCPCS: 99212 ==

== ENCOUNTER 2025-02-20 12:11 | Outpatient (REF) | payer OTHER, SELFPAY ==
--- NOTE | ~2025-02-20 | CT_ITS ---
EXAMINATION: CT ABDOMEN AND PELVIS WITH CONTRAST CLINICAL INFORMATION: R10.84. Generalized abdominal pain. COMPARISON: None available. TECHNIQUE: Multidetector volumetric images were obtained from the superior aspect of the liver through the pubic symphysis following administration 85 mL of Omnipaque 350 intravenous contrast. Sagittal and coronal reformatted images were obtained on the technologist's workstation. Oral contrast: Yes This CT examination was performed using dose optimization techniques as appropriate, variously including the following: *Automated exposure control *Adjustment of mA and/or kV according to patient size (this includes techniques or standardized protocols for targeted exams where dose is matched to indication/reason for exam; i.e. extremities or head) *Use of iterative reconstruction technique. DLP: 300 mGy centimeter. FINDINGS: LUNG BASES: There is a 3.4 mm nodule in the periphery of the right lung base LIVER, GALLBLADDER, AND BILIARY TREE: Liver measures 17 cm. Subtle nodular surface. Focal hypodensity adjacent to the falciform ligament. Mild intrahepatic biliary ductal dilatation. Main portal veins, hepatic veins and intrahepatic portion of the patent. Status post cholecystectomy, likely laparoscopic. Common bile duct measures 4 mm. PANCREAS: No focal lesion. No main pancreatic ductal dilatation. No peripancreatic fluid collections. SPLEEN: 10 cm. No focal mass. ADRENAL GLANDS: No nodular lesions. KIDNEYS AND URETERS: No renal mass. No hydronephrosis. No gross nephrolithiasis. Normal enhancement pattern of the renal parenchyma. Normal urinary excretion into the collecting system. BLADDER: Fluid-filled. GASTROINTESTINAL TRACT: Abundant stool in the large intestine. No intestinal obstruction pattern. No pneumatosis intestinalis. No intestinal wall thickening. Terminal ileum is normal. Appendix is normal. No ascites. No pneumoperitoneum. No peripheral enhancing fluid collection, peritoneal cavity. ABDOMINAL WALL: Small fat-containing umbilical hernia. LYMPH NODES: No mesenteric or retroperitoneal lymphadenopathy. VASCULAR: No aneurysm or dissection, abdominal aorta. PELVIC VISCERA: Heterogeneous prominent prostate gland measures less than 5 cm protruding upon the urinary bladder floor. OSSEOUS STRUCTURES: Multilevel thoracolumbar spondylosis resulting in grade 1 retrolisthesis, L4-5, L2-3 and L3-4 levels and grade 1 anterolisthesis L5-S1 with bilateral neuroforamina stenosis. Spondylolysis pars interarticulares L5-S1. CT/CT abdomen pelvis w IV con IMPRESSION: Abundant stool without intestinal obstruction pattern. Hepatomegaly and questionable hepatocellular disease. Nonspecific mild intrahepatic ductal dilatation. Probable benign prostate hyperplasia. Small fat-containing umbilical hernia. Multilevel thoracolumbar spondylosis resulting in grade 1 retrolisthesis from L2-3 to L4-5 and grade 1 anterolisthesis secondary to spondylolysis pars interarticularis L5-S1. Fleischner guidelines were followed. Electronically signed by: Rico Whitlock MD 02/20/2025 03:22 PM EDT
[2025-02-20] MEDS: iohexoL 350 MG/ML 100 ML INFUS..BTL IV (14:59)
[2025-02-20] MEDS: Barium Sulfate Oral (Berry) 450 ML ORAL.SUSP 900 ML PO (15:00)
[2025-02-20 15:39] LABS: Creatinine POC 1.2 mg/dL (0.5-1.4); GFR POC > 60
--- OUTSIDE RECORDS SUMMARY | 2025-02-20 17:07 | XMS_ITS | Clinical Summary ---
Author Organization [facility] Address [address] [place] [address] Care Team Providers Care Brickmason Apprentice Name Role Phone Seble Romero MD Primary [...] age to complete this topic Care Teams Brickmason Apprentice Relationship Specialty Start Date End Date Seble Romero MD [address] [facility] , [address] [facility] D/B/A: Jeremy [facility] [place] [id number] PCP - General Internal Medicine 02/21/17
== END 2025-02-20 12:12 | disposition home or self-care (01) ==
LOC: HO.CT 12:11
PROVIDERS: PCP Internal Medicine; Visit Provider Nurse Practitioner
DX: R10.84 Generalized abdominal pain (principal); R11.2 Nausea with vomiting, unspecified
CPT/HCPCS: 74177; 82565; Q9967

== ENCOUNTER → 2025-02-20 12:14 | Outpatient (BNV) | payer OTHER, SELFPAY | PROVIDERS: PCP Internal Medicine; Visit Provider Radiology Diagnostic Radiology | DX: K42.9 Umbilical hernia without obstruction or gangrene (principal); R16.0 Hepatomegaly, not elsewhere classified; M47.815 Spondylosis without myelopathy or radiculopathy, thoracolumbar region | CPT/HCPCS: 74177 ==

== ENCOUNTER 2025-03-06 11:56 | Outpatient (AMB) | payer OTHER, SELFPAY ==
--- NOTE | 2025-03-06 11:59 | A.OFFVIS_ITS ---
Vital Signs 03/06/25 12:00 Height 5 ft 4 in Weight 165 lb 5.547 oz BMI 28.4 BP 148/86 H Blood Pressure Location Rt brachial Position Sitting Pulse 78 Pulse Source Pulse Oximeter Pulse Oximetry (%) 98 Oxygen Delivery Method Room Air Intake Visit Reasons: 3 week f/u Intake Note: Est pt for IBS mgmt. CC; C.O. constipation persistence due to pt stopping the linzess. Pt had been taking the linzess for 4-5 days and was having a noticeable impact with the medication. However, even with the lowest dose of linzess, pt was having frequent BMs and diarrhea. Mentally Impaired Teacher Required: No Accompanied by: Family/Other Allergies prochlorperazine (From COMPAZINE) Allergy (Intermediate, Verified 04/18/25 10:14) DIFFICULTY BREATHING gabapentin Allergy (Mild, Verified 04/18/25 10:14) depression HPI HPI 3 week f/u: Details: Assessment & Plan (1) GERD (gastroesophageal reflux disease): Code(s): K21.9 - Gastro-esophageal reflux disease without esophagitis Category: Medical (2) Nausea and vomiting: Code(s): R11.2 - Nausea with vomiting, unspecified Category: Medical (3) Generalized abdominal pain: Code(s): R10.84 - Generalized abdominal pain Category: Medical Plan It appears the patient is here for new complaint of nausea and GERD. 2 weekds ago he started pham ving pain in the LLQ and at times in the RLQ and epigastrum. This was of sudden onset, and he can not identify any suspicious foods eaten, sick contacts, at about the same time as the onset of the pain he was started on nabumetone for pelvic pain and he also says that he drinks a pre workout supplement with a lot of caffeine. He presented to a local urgent care clinic in [place] and they did a urinalysis that seem to show an infection and put him on Levaquin. He has 2 days left to complete this. They told him to get an ultrasound for possible appendicitis, and he presented to his primary care provider but it appears that no study was ordered. He says that the pain starts in the left lower quadrant and sometimes in the right lower quadrant and sometimes in the epigastrium. Because it is moving I suspect this is of colonic or intestinal source. He has a associated nausea but no vomiting. He has a lot of fears hearing a hernia, and he also is asking for an endoscopy. I will order an endoscopy but we are booking out into March and I am not really convinced that this is a gastric pathology because of the location of the pain. Certainly this might shed light on the nausea. Given all of the broad considerations in the differential diagnosis I think a CAT scan would be a better study and will try to get that urgently. In the meantime I have told him to stop the nabumetone (it did not help with this pelvic pain anyway), and to give up his pre workout supplement. He can comple giovany a Levaquin therapy and will do a course of Augmentin since the sounds more like diverticulitis or colonic infectious process than anything else. He had a colonoscopy in May of this year showing only minor diverticulitis and was otherwise normal. Return office visit in 3 weeks Orders: Orders CT abdomen pelvis w IV con Today R10.84 - Generalized abdominal pain, R11.2 - Nausea with vomiting, unspecified Referrals GI Procedure Notification R11.2 - Nausea with vomiting, unspecified Medications: New amoxicillin-pot clavulanate 875-125 mg 1 tab PO BID 20 tabs 0RF 10 days R10.84 - Generalized abdominal pain dicyclomine 10 mg PO QID 90 caps 1RF On Hold nabumetone Hold Comment: Doctor's Order 750 mg PO BID 30 days PRN [address] abdomen and pelvis 02/20/2025 FINDINGS: LUNG BASES: There is a 3.4 mm nodule in the periphery of the right lung base LIVER, GALLBLADDER, AND BILIARY TREE: Liver measures 17 cm. Subtle nodular surface. Focal hypodensity adjacent to the falciform ligament. Mild intrahepatic biliary ductal dilatation. Main portal veins, hepatic veins and intrahepatic portion of the patent. Status post cholecystectomy, likely laparoscopic. Common bile duct measures 4 mm. PANCREAS: No focal lesion. No main pancreatic ductal dilatation. No peripancreatic fluid collections. SPLEEN: 10 cm. No focal mass. ADRENAL GLANDS: No nodular lesions. KIDNEYS AND URETERS: No renal mass. No hydronephrosis. No gross nephrolithiasis. Normal enhancement pattern of the renal parenchyma. Normal urinary excretion into the collecting system. BLADDER: Fluid-filled. GASTROINTESTINAL TRACT: Abundant stool in the large intestine. No intestinal obstruction pattern. No pneumatosis intestinalis. No intestinal wall thickening. Terminal ileum is normal. Appendix is normal. No ascites. No pneumoperitoneum. No peripheral enhancing fluid collection, peritoneal cavity. ABDOMINAL WALL: Small fat-containing umbilical hernia. LYMPH NODES: No mesenteric or retroperitoneal lymphadenopathy. VASCULAR: No aneurysm or dissection, abdominal aorta. PELVIC VISCERA: Heterogeneous prominent prostate gland measures less than 5 cm protruding upon the urinary bladder floor. OSSEOUS STRUCTURES: Multilevel thoracolumbar spondylosis resulting in grade 1 retrolisthesis, L4-5, L2-3 and L3-4 levels and grade 1 anterolisthesis L5-S1 with bilateral neuroforamina stenosis. Spondylolysis pars interarticulares L5-S1. CT/CT abdomen pelvis w IV con IMPRESSION: Abundant stool without intestinal obstruction pattern. Hepatomegaly and questionable hepatocellular disease. Nonspecific mild intrahepatic ductal dilatation. Probable benign prostate hyperplasia. Small fat-containing umbilical hernia. Multilevel thoracolumbar spondylosis resulting in grade 1 retrolisthesis from L2-3 to L4-5 and grade 1 anterolisthesis secondary to spondylolysis pars interarticularis L5-S1. EGD BIOPSY TODAY'S VISIT [facility] Medical History Screening for colon cancer Muscle spasms of neck OLIVA (nonalcoholic steatohepatitis) Bleeding hemorrhoids External thrombosed hemorrhoids Transaminitis Hearing loss Left shoulder pain Cervical radiculopathy Hematuria Lower back pain Disc degeneration, lumbar Pulmonary embolism Chronic fatigue Essential hypertension Mixed hyperlipidemia Surgical History History of colonoscopy H/O neck surgery History of rectal polypectomy Family History Father Dementia Mother Hypertension Diabetes Social History Housing: Apartment Alcohol intake: current Alcohol intake frequency: holidays/special occasions only Alcohol type: beer and hard liquor Patient Tobacco Use Status: Former Tobacco user e-Cigarette/Vaping Use: Never Used Second Hand Smoke Exposure: Yes service: No Current occupational status: employed Current occupational exposures/hazards: No Cognitive needs: No Hearing needs: No Vision needs: Yes Review of Systems Const Denies fatigue, Denies fever(s), Reports malaise, Denies night sweats, Denies poor appetite and Denies weight loss Eyes Details: glasses Reports requires corrective lenses ENT Reports Normal hearing present, Denies dental pain, Denies dysphagia, Denies hearing loss, Denies mouth pain, Denies odynophagia, Denies throat swelling, Denies tongue swelling and Reports other (Dentition adequate) Card Reports no additional complaints Resp Reports no additional complaints GI Details: Reports abdominal pain, Denies melena, Denies bloating, Denies hematochezia, Reports constipation, Reports GI cramping, Denies dysphagia, Denies excessive flatus, Denies early satiety, Reports heartburn, Denies diarrhea, Denies nausea, Denies odynophagia, Denies vomiting and Denies hematemesis Skin/Breast Denies pruritus, Denies lesions, Denies rash and Denies jaundice Neuro Reports Normal hearing present and Denies Abnormal speech present Endo Denies fatigue Aller/Immun Denies throat swelling and Denies tongue swelling Physical Exam Vital Signs: Last Vital Signs Pulse 78 03/06/25 12:00 BP 148/86 H 03/06/25 12:00 Pulse Ox 98 03/06/25 12:00 Oxygen Delivery Method Room Air 03/06/25 12:00 BMI result Body Mass Index 28.4 Const General: cooperative, no acute distress, well developed and well groomed Nutritional Appearance: average body habitus and well nourished Orientation/consciousness: oriented to person, oriented to place and oriented to time Limitations: No language barrier HEENT Head: Yes normocephalic and Yes atraumatic Eyes General: appearance normal, both eyes and all related structures Pupils: Equal, round and reactive pupils present Neck Neck: Yes normal visual inspection and Yes no lymphadenopathy Thyroid: Thyroid normal Resp Effort & Inspection: normal respiratory effort and able to speak in complete sentences Auscultation: clear to auscultation bilaterally Cardio Rate: regular rate Rhythm: regular rhythm Heart sounds: Normal, physiologic split S2 sound present Peripheral pulses: radial pulses present and posterior tibial pulses present GI Inspection: No distended and No Abdominal panniculus present Palpation (GI): Soft to palpation, nontender, no guarding, not rigid and No hepatosplenomegaly present Percussion: Yes normal to percussion Auscultation: normal bowel sounds Rectal Exam - Male: Yes deferred Skin General skin exam: no rashes or lesions noted, turgor normal, skin not dry, no jaundice, No spider nevi and no striae Rashes: no rashes Nails: normal Neuro General: oriented to person, oriented to place and oriented to time Cranial nerves: Yes Equal, round and reactive pupils present and Yes Normal hearing present Speech: No Abnormal speech present Extrem General: Yes normal to inspection, No clubbing, No cyanosis and No edema Psych Appearance: grossly normal and well kempt Mental Status: mental status grossly normal Speech and movement: Normal speech and movement present Affect: normal affect Attitude: cooperative Thought process: Normal thought process present and not confabulating Thought content: Normal thought content present Insight: Limited insight present (Psych) Judgement: Limited judgement present (Psych) Assessment & Plan Assessment & Plan (1) Generalized abdominal pain: Code(s): R10.84 - Generalized abdominal pain Category: Medical (2) Constipation: Code(s): K59.00 - Constipation, unspecified Category: Medical (3) OLIVA (nonalcoholic steatohepatitis): Comment: Baseline Laboratory Tests GIVEN THE MILDNESS OF THE FATTY LIVER THIS CAN BE FOLLOWED BY THE PRIMARY CARE PROVIDER 09/18/21 Plt Count 268 Ferritin 189 GGT 44 the Ceruloplasmin 26 Alpha Fetoprotein 1.5 HEATHER Screen NEGATIVE Anti-Mitochondrial Ab NEGATIVE Anti-Smooth Muscle Ab <20 Hepatitis A IgM Ab Nonreactive Hep Bs Antigen Negative Hep Bs Antibody NONREACTIVE Hep B Core Total Ab Nonreactive Hepatitis C Ab (EIA) Nonreactive HIV 1&2 Ab/P24 Ag 4thGn Nonreactive Total Bilirubin 1.1 H Direct Bilirubin 0.2 the AST 32 ALT 26 Alkaline Phosphatase 100 The ULTRASOUND OF THE ABDOMEN WITH ELASTOGRAPHY (F-0) 12/02/21 IMPRESSION: 1. Hepatic steatosis with few scattered echogenic lesions likely artifact or fatty infiltration. ? 2. Liver elastography: Median liver stiffness measures 1.25 m/s suggestive of high probably normal. Code(s): K75.81 - Nonalcoholic steatohepatitis (OLIVA) Category: Medical (4) GERD (gastroesophageal reflux disease): Code(s): K21.9 - Gastro-esophageal reflux disease without esophagitis Category: Medical Plan We treated him with a course of Augmentin. - The patient is a 59-year-old male presenting with constipation. - The patient experienced excessive bowel movements with Linzess, affecting work schedule. - White bread and rice consumption exacerbates constipation. - A stimulant supplement containing caffeine and cayenne pepper induces bowel movement but likely contributes to abdominal discomfort. - Previous imaging via CAT scan indicated fecal impaction. - Occasional abdominal cramping associated with constipation is reported. - Continue taking Linzess as needed, being aware of potential side effects. - Increase intake of whole wheat bread and brown rice to aid digestion. - Drink plenty of water to reduce constipation and counter supplements? diuretic effect. - Schedule follow-up post-endoscopy when notified. - Consider bowel antispasmodics if abdominal pain persists. EGD BIOPSY Medications: New linaclotide (Linzess) Take 1st thing in the morning with a full glass of water 72 mcg PO QAM 30 caps 3RF Coding Level of Care Code Est Pt Level 3 (14256) Diagnoses Generalized abdominal pain R10.84 Constipation K59.00 OLIVA (nonalcoholic steatohepatitis) K75.81 GERD (gastroesophageal reflux disease) K21.9
[2025-03-06 12:00] VITALS: BP 148/86; PULSE 78; O2SAT 98; BMI 28.4
== END 2025-03-06 12:31 | disposition home or self-care (01) ==
LOC: HO.HGI 11:57
PROVIDERS: PCP Internal Medicine; Visit Provider Nurse Practitioner
DX: R10.84 Generalized abdominal pain (principal); K59.00 Constipation, unspecified; K75.81 Nonalcoholic steatohepatitis (NASH); K21.9 Gastro-esophageal reflux disease without esophagitis
CPT/HCPCS: 99213

== ENCOUNTER → 2025-03-06 11:56 | Outpatient (BNVA) | payer OTHER, SELFPAY | PROVIDERS: PCP Internal Medicine; Visit Provider Nurse Practitioner | DX: R10.84 Generalized abdominal pain (principal); K59.00 Constipation, unspecified; K21.9 Gastro-esophageal reflux disease without esophagitis; K75.81 Nonalcoholic steatohepatitis (NASH) | CPT/HCPCS: 99212 ==

== ENCOUNTER 2025-03-18 06:11 | Outpatient (REF) | payer OTHER, SELFPAY ==
--- NOTE | ~2025-03-18 | FL_ITS ---
EXAMINATION: FL GUIDANCE ONLY HISTORY: M25.512 - Pain in left shoulder COMPARISON: Correlation is made with plain films of the left shoulder dated 02/04/2025. TECHNIQUE: Fluoroscopy time: 0.2 minutes. Cumulative Dose: 0.80 mGy. DAP: 18.44 uGym2 Images: 2. FINDINGS: Fluoroscopic spot films of the left shoulder demonstrate a needle in place and contrast material in the joint space. FL/FL guidance in treatment room IMPRESSION: Fluoroscopy during procedure. Please see procedure report for additional information. Electronically signed by: Jimmy Olea MD 03/19/2025 03:04 PM EDT
--- OUTSIDE RECORDS SUMMARY | 2025-03-18 06:13 | XMS_ITS | Clinical Summary ---
Author Organization [facility] Address [address] [place] [address] Care Team Providers Care Band Bias Machine Operator Name Role Phone Seble Romero MD Primary [...] age to complete this topic Care Teams Band Bias Machine Operator Relationship Specialty Start Date End Date Seble Romero MD 2 [facility] , [address] [facility] Physician Associ D/B/A: [facility] JOSE J Luna [id number] PCP - General Internal Medicine 02/21/17
== END 2025-03-18 06:12 | disposition home or self-care (01) ==
LOC: CF 06:11
PROVIDERS: Visit Provider Anesthesiology
DX: G89.29 Other chronic pain (principal); M19.012 Primary osteoarthritis, left shoulder
CPT/HCPCS: 20610; J2795; J3301; Q9967

== ENCOUNTER 2025-03-18 08:29 | Outpatient (AMB) | payer OTHER, SELFPAY ==
[2025-03-18 08:30] VITALS: BP 161/90; PULSE 67; RESP 16; O2SAT 98; BMI 28.3
--- NOTE | 2025-03-18 08:30 | MHC.OFFVIS ---
Vital Signs 03/18/25 08:30 03/18/25 09:10 Height 5 ft 4 in Weight 165 lb BMI 28.3 BP 161/90 H 187/91 H Blood Pressure Location Lt brachial Lt brachial Position Sitting Sitting Respiration 16 16 Pulse 67 68 Pulse Source Pulse Oximeter Pulse Oximeter Pulse Oximetry (%) 98 97 Oxygen Delivery Method Room Air Room Air Intake Visit Reasons: Left Shoulder Intra-Articular Steroid Injection Allergies prochlorperazine (From COMPAZINE) Allergy (Intermediate, Verified 02/13/25 15:02) DIFFICULTY BREATHING gabapentin Allergy (Mild, Verified 02/13/25 15:02) depression [facility] Medical History Screening for colon cancer Muscle spasms of neck OLIVA (nonalcoholic steatohepatitis) Bleeding hemorrhoids External thrombosed hemorrhoids Transaminitis Hearing loss Left shoulder pain Cervical radiculopathy Hematuria Lower back pain Disc degeneration, lumbar Pulmonary embolism Chronic fatigue Essential hypertension Mixed hyperlipidemia Surgical History History of colonoscopy H/O neck surgery History of rectal polypectomy Family History Father Dementia Mother Hypertension Diabetes Social History Housing: Apartment Alcohol intake: current Alcohol intake frequency: holidays/special occasions only Alcohol type: beer and hard liquor Patient Tobacco Use Status: Former Tobacco user e-Cigarette/Vaping Use: Never Used Second Hand Smoke Exposure: Yes service: No Current occupational status: employed Current occupational exposures/hazards: No Cognitive needs: No Hearing needs: No Vision needs: Yes Physical Exam Vital Signs: Last Vital Signs Pulse 67 03/18/25 08:30 Resp 16 03/18/25 08:30 BP 161/90 H 03/18/25 08:30 Pulse Ox 98 03/18/25 08:30 Oxygen Delivery Method Room Air 03/18/25 08:30 BMI result Body Mass Index 28.3 Assessment & Plan Assessment & Plan (1) Left shoulder pain: Code(s): M25.512 - Pain in left shoulder Category: Medical Qualifiers: Chronicity: chronic Qualified Code(s): M25.512 - Pain in left shoulder; G89.29 - Other chronic pain (2) Primary osteoarthritis, left shoulder: Code(s): M19.012 - Primary osteoarthritis, left shoulder Category: Medical Plan Left intra-articular shoulder steroid injection ? ?Informed consent was explained to the patient. All questions were explained and? answered.? The patient was taken inside the operating room where he was positioned prone on the operating table. Time-out was performed delineating correct site, side, the nature of the procedure, patient's allergy, . All operating room staff was participating in OR time-out procedure. ? ? The the upper back and posterior neck in the left shoulder was prepped with ChloraPrep and draped with sterile towels.? C-arm was brought over the operating field and sq picture of left shoulder glenohumeral joint was demonstrated on the screen. 22 gauge 3-1/2 inch needle was driven to were the silhouette of the joint in tunnel vision fashion. When needle entered the joint capsule injection of the contrast performed demonstrating arthrogram. After that injection of the medication containing ropivacaine 0.5% 4 mL and Kenalog 1 mL of 40 mg was injected into the joint. Upon completion of the injection needle was removed sterile Band-Aid was applied patient tolerated injection well. Orders: Orders FL guidance in treatment room Today M25.512 - Pain in left shoulder Coding Level of Care Code Procedure Only Diagnoses Chronic left shoulder pain M25.512; G89.29 Chronicity: chronic Primary osteoarthritis, left shoulder M19.012
[2025-03-18 09:10] VITALS: BP 187/91; PULSE 68; RESP 16; O2SAT 97
== END 2025-03-18 09:10 | disposition home or self-care (01) ==
LOC: HO.PMCPRC 08:29
PROVIDERS: PCP Internal Medicine; Visit Provider Anesthesiology
DX: M19.012 Primary osteoarthritis, left shoulder (principal); M25.512 Pain in left shoulder; G89.29 Other chronic pain
CPT/HCPCS: 20610; 77002

== ENCOUNTER 2025-03-21 17:57 | Outpatient (REF) | payer OTHER, SELFPAY ==
--- NOTE | ~2025-03-21 | MR_ITS ---
EXAMINATION: MR CERVICAL SPINE WITHOUT CONTRAST CLINICAL INFORMATION: M 54.12. Left-sided Radiculopathy, cervical region. COMPARISON: March 10, 2020. Correlated to x-ray dated February 04, 2025. TECHNIQUE: MRI of the cervical spine was obtained using routine sequences without contrast. FINDINGS: Craniocervical junction is intact. Normal position of the cerebellar tonsils. Paramagnetic field distortion secondary to metallic hardware at C6-7. No gross bone marrow STIR signal abnormality. 1 mm retrolisthesis C3-4. Reverse curvature, mild apex at C5. Cervical spinal cord signal is normal. C2-3: Left subarticular disc osteophyte complex formation resulting in ventral indentation to the thecal sac. No neuroforamina stenosis. No cord compression. C3-4: Central left subarticular and foraminal broad-based disc osteophyte compresses formation resulting in ventral deformity of the spinal cord. Mild left neuroforamina narrowing. C4-5: Central disc osteophyte compresses formation resulting in ventral indentation to the spinal cord. No neuroforamina stenosis. C5-6: Broad-based disc osteophyte compresses formation resulting in ventral deformity of the thecal sac. Left neuroforamina narrowing. C6-7: Postsurgical changes. Left neuroforamina narrowing. C7-T1: No disc herniation. No neuroforamina stenosis. T1-2: No disc herniation. No neuroforamina stenosis. No prevertebral compartment hematoma, mass or fluid collection. Flow-void signal within the main vessels is normal. Right vertebral artery is dominant. MR/MR cervical spine wo con IMPRESSION: Multilevel cervical spondylosis resulting in central spinal canal stenosis and left neuroforamina stenosis from C3-4 to C4-5 and to a lesser extent C5-6. No cord compression, cord edema and or myelopathy. Electronically signed by: Rico Whitlock MD 03/24/2025 08:36 AM EDT
--- OUTSIDE RECORDS SUMMARY | 2025-03-21 18:06 | XMS_ITS | Encounter Summary ---
Author Organization [employer] Address [address] [place] [address] Care Team Providers Care Forest Economist Name Role Phone Seble Oscar MD Primary Care Provider [phone] Encounter Details Date Type Department Care Team (Late st Contact Info) Description 02/19/2025 Lab Requisition [facility] [address] [place] [address] Griffin Mayo, RYAN [address] [place] [phone] Benign essential microscopic hematuria Social History Tobacco Use Types Packs/Day Years Used Date Smoking Tobacco: Never Smokeless Tobacco: Never Sex and Gender Information Value Date Recorded Sex Assigned at Not on file Legal Sex Male 10:35 AM EST Gender Identity Not on file Sexual Orientation Not on file documented as of this encounter Plan of Treatment Not on file documented as of this encounter Procedures Procedure Name Priority Date/Time Associated Diagnosis Comments NON-GYNECOLOGIC CYTOLOGY Routine 02/12/2025 12:00 AM EDT Benign essential microscopic hematuria documented in this encounter Results * Non-gynecologic cytology (02/12/2025 12:00 AM EDT) Final Diagnosis A. Urine, Voided, [id number]: Negative for high grade urothelial carcinoma. Paucicellular specimen. Results of [facility] fluorescence in situ hybridization (FISH) testing: CEP3: Normal CEP7: Normal CEP17: Normal LSI 9p21: Normal Interpretation: Normal profile Controls stained appropriately. Note: The results are intended as a screening device and should be interpreted in association with other clinical and pathological findings. 03/11/2025 4:28 PM EDT [facility] at 1628 EDT Specimen A Adequacy Satisfactory for evaluation 03/11/2025 4:28 PM EDT [facility] Clinical Information Benign essential microscopic hematuria R31.1 Urine Cytology/FISH (now) 03/11/2025 4:28 PM EDT [facility] Gross Description A. Urine, Voided, [id number]: Received one ThinPrep slide for cytology and one ThinPrep slide for UroVysion FISH 03/11/2025 4:28 PM EDT [facility] Disclaimer Unless otherwise specified, all tissue is 10% NB formalin fixed and paraffin embedded. Technical pathology services provided by [facility] at [address] [facility] [address], [place] [address] (CLIA #[id number]/Tamar Hernandez MD, Pneumatic Tool Repairer) 03/11/2025 4:28 PM EDT [facility] Urine Urine specimen from urethra / Unknown 02/12/2025 02/19/2025 1:30 PM EDT us [facility] CYTOLOGY ORDERABLES Final Result [facility] [address] [place] [address], documented in this encounter Visit Diagnoses Diagnosis Benign essential microscopic hematuria documented in this encounter Care Teams Forest Economist Relationship Specialty Start Date End Date Seble Oscar MD 2 [facility] , [address] Physician Associ D/B/A: [facility] JOSE J Luna PCP - General Internal Medicine 02/21/17 documented as of this encounter
--- OUTSIDE RECORDS SUMMARY | 2025-03-21 18:06 | XMS_ITS | Clinical Summary ---
Author Organization [facility] Address [address] [place] [address] Care Team Providers Care Architectural Draftsperson Name Role Phone Seble Romero MD Primary [...] age to complete this topic Care Teams Architectural Draftsperson Relationship Specialty Start Date End Date Seble Romero MD 2 [facility] , [address] [facility] Physician Associ D/B/A: [facility] JOSE J Luna [id number] PCP - General Internal Medicine 02/21/17
--- OUTSIDE RECORDS SUMMARY | 2025-03-21 18:06 | XMS_ITS | Clinical Summary ---
Author Organization [facility] Address [address] [place] [address] Phone Care Team Providers Care Job Lithographer Name Role Phone Seble Oscar MD Primary Care Provider [phone] Allergies Active Allergy Reactions Criticality Noted Date Comments Prochlorperazine 09/10/2021 Medications No known medications Encounters Date Type Department Care Team Description 02/19/2025 Lab Requisition [facility] - Main Lab [address] [facility] [place] [address] Griffin Mayo PA Benign essential microscopic hematuria 01/21/2025 10:57 AM EDT - 01/21/2025 12:10 PM EDT Emergency [facility] [address] [place] [address] Quentin Blunt MD Hematuria, unspecified [...] Health Maintenance Due Date Last Done Comments Colorectal Cancer Screening: Colonoscopy 1965 Hepatitis B Vaccines (1 of 3 - 19+ 3-dose series) 1984 Pneumococcal Vaccine: 50+ Years (1 of 1 - PCV) 08/03/2015 Cholesterol Screening (Lipid Panel) 05/02/2022 HIV Screening 05/02/2022 Hepatitis C Screening [...] 12:00 AM EDT Benign essential microscopic hematuria CBC WITH AUTO DIFFERENTIAL STAT 01/21/2025 10:25 AM EDT COMPREHENSIVE METABOLIC PANEL STAT 01/21/2025 10:25 AM EDT CBC AND DIFFERENTIAL STAT 01/21/2025 10:25 AM EDT GRUBBS URINE CULTURE TUBE STAT 01/21/2025 9:30 AM EDT URINALYSIS WITH REFLEX MICROSCOPIC AND CULTURE STAT 01/21/2025 9:30 AM EDT URINALYSIS WITH REFLEX MICROSCOPIC AND CULTURE STAT 01/21/2025 9:30 AM EDT from Last 3 Months Results * Non-gynecologic cytology (02/12/2025 12:00 AM EDT) Final Diagnosis A. Urine, Voided, [id number]: Negative for high grade urothelial carcinoma. Paucicellular specimen. Results of UroVysion fluorescence in situ hybridization (FISH) testing: CEP3: Normal CEP7: Normal CEP17: Normal LSI 9p21: Normal Interpretation: Normal profile Controls stained appropriately. Note: The results are intended as a screening device and should be interpreted in association with other clinical and pathological findings. 03/11/2025 4:28 PM EDT [facility] at 1628 EDT Specimen A Adequacy Satisfactory for evaluation 03/11/2025 4:28 PM EDT [facility] Clinical Information Benign essential microscopic hematuria R31.1 Urine Cytology/FISH (now) 03/11/2025 4:28 PM EDT [facility] Gross Description A. Urine, Voided, [id number]: Received one ThinPrep slide for cytology and one ThinPrep slide for UroVysion FISH 03/11/2025 4:28 PM EDT [facility] Disclaimer Unless otherwise specified, all tissue is 10% NB formalin fixed and paraffin embedded. Technical pathology services provided by [facility] at [id number], [place] [address] (CLIA #[id number]/Tamar Hernandez MD, Animal Chiropractor) 03/11/2025 4:28 PM EDT [facility] Urine Urine specimen from urethra / Unknown 02/12/2025 02/19/2025 1:30 PM EDT us Griffin DAVIS LAB CYTOLOGY ORDERABLES Final Result [facility] [address] [place] [address], [place] [phone] * CBC auto differential (01/21/2025 10:25 AM EDT) WBC 6.0 4.8 - 10.8 K/mcL LAB HEMETOLOGY METHOD 01/21/2025 10:39 AM T [facility] RBC 5.00 4.50 - 5.50 M/mcL LAB HEMETOLOGY METHOD 01/21/2025 10:39 AM EDT [facility] Hemoglobin 14.5 13.5 - 17.5 g/dL LAB HEMETOLOGY METHOD 01/21/2025 10:39 AM T [facility] Hematocrit 43.6 42.0 - 54.0 % LAB HEMETOLOGY METHOD 01/21/2025 10:39 AM EDT [facility] MCV 86.5 79.0 - 98.0 FL LAB HEMETOLOGY METHOD 01/21/2025 10:39 AM [facility] MCH 28.8 27.0 - 32.0 pcg LAB HEMETOLOGY METHOD [facility] MCHC 33.3 32.0 - 37.0 g/dL LAB HEMETOLOGY METHOD 01/21/2025 10:39 AM [facility] RDW 13.2 11.0 - 15.0 % LAB HEMETOLOGY METHOD 01/21/2025 10:39 AM [facility] Platelets 274 130 - 400 K/mcL LAB HEMETOLOGY METHOD 01/21/2025 10:39 AM [facility] MPV 10.1 7.0 - 11.0 FL LAB HEMETOLOGY METHOD 01/21/2025 10:39 AM [facility] NRBC 0.0 <1.0 % LAB HEMETOLOGY METHOD 01/21/2025 10:39 AM [facility] NRBC Absolute 0.00 <0.10 K/mcL LAB HEMETOLOGY METHOD 01/21/2025 10:39 AM [facility] Neutrophils Relative 57.6 % LAB HEMETOLOGY METHOD 01/21/2025 10:39 AM [facility] Lymphocytes Relative 32.1 % LAB HEMETOLOGY METHOD 01/21/2025 10:39 AM [facility] Monocytes Relative 7.5 % LAB HEMETOLOGY METHOD 01/21/2025 10:39 AM [facility] Eosinophils Relative 1.8 % LAB HEMETOLOGY METHOD 01/21/2025 10:39 AM [facility] Basophils Relative 0.7 % LAB HEMETOLOGY METHOD 01/21/2025 10:39 AM [facility] Immature Granulocytes Relative 0.3 % LAB HEMETOLOGY METHOD 01/21/2025 10:39 AM [facility] Neutrophils Absolute 3.44 1.50 - 7.00 K/mcL LAB HEMETOLOGY METHOD 01/21/2025 10:39 AM [facility] Lymphocytes Absolute 1.92 1.00 - 5.00 K/mcL LAB HEMETOLOGY METHOD 01/21/2025 10:39 AM EDT [facility] Monocytes Absolute 0.45 0.20 - 1.00 K[facility] LAB HEMETOLOGY METHOD 01/21/2025 10:39 AM EDT [facility] Eosinophils Absolute 0.11 0.00 - 0.50 K[facility] LAB HEMETOLOGY METHOD 01/21/2025 10:39 AM EDT [facility] Basophils Absolute 0.04 0.00 - 0.20 K[facility] LAB HEMETOLOGY METHOD 01/21/2025 10:39 AM T [facility] Immature Granulocytes Absolute 0.02 0.00 - 0.03 K[facility] LAB HEMETOLOGY METHOD 01/21/2025 10:39 AM [facility] Blood Venous blood specimen / Unknown Venipuncture / Unknown 01/21/2025 10:25 AM EDT 01/21/2025 10:34 AM EDT Mickey DAVIS LAB BLOOD ORDERABLES Final Result [facility] [address] [place] [address], * (ABNORMAL) Comprehensive metabolic panel (01/21/2025 10:25 AM EDT) Sodium 139 133 - 145 mmol/L LAB CHEMISTRY METHOD 01/21/2025 11:32 AM [facility] Potassium 4.3 3.5 - 5.5 mmol/L LAB CHEMISTRY METHOD 01/21/2025 11:32 AM [facility] Chloride 107 96 - 110 mmol/L LAB CHEMISTRY METHOD 01/21/2025 11:32 AM [facility] CO2 29 21 - 32 mmol/L LAB CHEMISTRY METHOD 01/21/2025 11:32 AM [facility] Anion Gap 3 3 - 11 LAB CHEMISTRY METHOD 01/21/2025 11:32 AM [facility] Glucose 106(H) 70 - 100 mg/dL LAB CHEMISTRY METHOD 01/21/2025 11:32 AM [facility] BUN 16 5 - 25 mg/dL LAB CHEMISTRY METHOD 01/21/2025 11:32 AM [facility] Creatinine 1.20 0.70 - 1.30 mg/dL LAB CHEMISTRY METHOD 01/21/2025 11:32 AM [facility] eGFR 70 >=60 mL/min/1. 73m2 LAB CHEMISTRY METHOD 01/21/2025 11:32 AM [facility] Comment:Calculation based on the Chronic Kidney Disease Epidemiology Collaboration (CKD-EPI) equation refit without adjustment for race. BUN/Creatinine Ratio 13.3 LAB CHEMISTRY METHOD 01/21/2025 11:32 AM [facility] Calcium 9.3 8.5 - 10.5 mg/dL LAB CHEMISTRY METHOD 01/21/2025 11:32 AM [facility] AST (SGOT) 34 10 - 42 unit/L LAB CHEMISTRY METHOD 01/21/2025 11:32 AM [facility] ALT (SGPT) 28 10 - 60 unit/L LAB CHEMISTRY METHOD 01/21/2025 11:32 AM [facility] Alkaline Phosphatase 87 42 - 121 unit/L LAB CHEMISTRY METHOD 01/21/2025 11:32 AM [facility] Total Protein 7.2 6.0 - 8.0 g/dL LAB CHEMISTRY METHOD 01/21/2025 11:32 AM [facility] Albumin 3.8 3.2 - 5.0 g/dL LAB CHEMISTRY METHOD 01/21/2025 11:32 AM [facility] Total Bilirubin 0.9 0.0 - 1.4 mg/dL LAB CHEMISTRY METHOD 01/21/2025 11:32 AM [facility] Blood Venous blood specimen / Unknown Venipuncture / Unknown 01/21/2025 10:25 AM EDT 01/21/2025 10:34 AM EDT us Mickey DAVIS LAB BLOOD ORDERABLES Final Result [facility] [address] [place] [address], [place] [phone] * Urinalysis with reflex microscopic and culture (01/21/2025 9:30 AM EDT) Specific Ashley Urine 1.008 1.003 - 1.030 LAB URINALYSIS - AUTOMATED METHOD 01/21/2025 10:15 AM [facility] pH, Urine 7.5 5.0 - 8.0 pH LAB URINALYSIS - AUTOMATED METHOD 01/21/2025 10:15 AM [facility] Leukocytes, Urine Negative Negative LAB URINALYSIS - AUTOMATED METHOD 01/21/2025 10:15 AM [facility] Nitrite, Urine Negative Negative LAB URINALYSIS - AUTOMATED METHOD 01/21/2025 10:15 AM [facility] Protein, Urine Negative <=Trace mg/dL LAB URINALYSIS - AUTOMATED METHOD 01/21/2025 10:15 AM [facility] Glucose, Urine Negative Negative mg/dL LAB URINALYSIS - AUTOMATED METHOD 01/21/2025 10:15 AM [facility] Ketones, Urine Negative Negative mg/dL LAB URINALYSIS - AUTOMATED METHOD 01/21/2025 10:15 AM [facility] Urobilinogen, Urine 0.2 0.2 - 1.0 mg/dL LAB URINALYSIS - AUTOMATED METHOD 01/21/2025 10:15 AM [facility] Bilirubin, Urine Negative Negative LAB URINALYSIS - AUTOMATED METHOD 01/21/2025 10:15 AM EDT [facility] Blood, Urine Negative Negative LAB URINALYSIS - AUTOMATED METHOD 01/21/2025 10:15 AM EDT [facility] Urine Urine specimen obtained by clean catch procedure / Unknown Non-blood Collection / Unknown 01/21/2025 9:30 AM EDT 01/21/2025 10:06 AM EDT Mickey DAVIS LAB URINE ORDERABLES Final Result [facility] [address] [place] [address], [place] [phone] * Grubbs urine culture tube (01/21/2025 9:30 AM EDT) Extra Tube Hold for add-ons. 01/21/2025 12:01 PM EDT [facility] Comment:Auto resulted. Urine Urine specimen obtained by clean catch procedure / Unknown Non-blood Collection / Unknown 01/21/2025 9:30 AM EDT 01/21/2025 10:06 AM EDT Mickey DAVIS LAB URINE ORDERABLES Final Result [facility] [address] [place] [address], [place] [phone] from Last 3 Months Insurance [facility] Care Teams Job Lithographer Relationship Specialty Start Date End Date Seble Oscar MD 2 [facility] , [address] Physician Associ D/B/A: [facility] JOSE J Luna PCP - General Internal Medicine 02/21/17
== END 2025-03-21 17:58 | disposition home or self-care (01) ==
LOC: HO.MRI 17:57
PROVIDERS: PCP Internal Medicine; Visit Provider Nurse Practitioner Family
DX: M54.12 Radiculopathy, cervical region (principal); M96.1 Postlaminectomy syndrome, not elsewhere classified; M54.2 Cervicalgia
CPT/HCPCS: 72141

== ENCOUNTER → 2025-03-21 17:57 | Outpatient (BNV) | payer OTHER, SELFPAY | PROVIDERS: PCP Internal Medicine; Visit Provider Radiology Diagnostic Radiology | DX: M47.22 Other spondylosis with radiculopathy, cervical region (principal); M99.61 Osseous and subluxation stenosis of intervertebral foramina of cervical region; M48.02 Spinal stenosis, cervical region | CPT/HCPCS: 72141 ==

== ENCOUNTER 2025-04-01 13:02 | Outpatient (AMB) | payer OTHER, SELFPAY ==
--- NOTE | 2025-04-01 13:03 | MHC.OFFVIS ---
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 He has a history of cervical fusion and reports that his neck pain has been persistent. The pain is described as minimal today, but he experiences exacerbations, particularly upon waking and use of left arm. The patient has been undergoing physical therapy in [place], which he finds beneficial. He received an injection in his shoulder over two weeks ago, which has significantly improved his shoulder pain. Currently, he reports mild shoulder pain, and his pain level is 2/10 however upon awakening or use of left arm his left sided neck and shoulder pain increases to 6-7/10. The MRI of the neck revealed multilevel cervical spondylosis resulting in central spinal canal stenosis and left neuroforamina stenosis from C3-4 to C4-5 and to a lesser extent C5-6. No cord compression, cord edema and or myelopathy. The patient denies any numbness or tingling in the arm currently. He continues to work 12-hour shift, his left shoulder pain is exacerbated by work activities. Past Procedures: 03/18/25: Left shoulder intra-articular steroid injection-80% pain relief at rest PRIOR: The patient is a 59-year-old male presenting with chronic neck and shoulder pain. The patient has a history of cervical discectomy and fusion at C6-C7, with intact hardware as confirmed by recent imaging. Imaging studies reveal bone spurs in the cervical spine and left shoulder with degenerative changes and mild narrowing of the left C6-7 and C7-T1 neural foramen, causing persistent neck pain and left shoulder pain. The patient experiences numbness and tingling in the fingers, consistent with the level of neuroforaminal narrowing. He has undergone physical therapy for two years, which he finds beneficial, but insurance requires further therapy before approving updated cervical MRI. His insurance has approved an injection for the left shoulder, and he is interested with scheduling it. Denies any recent cough, cold, infection, fever or any other significant changes in medical history since last office visit. PRIOR: The patient is a 59-year-old male presenting with left shoulder pain and neck pain. The neck pain radiates to the left arm, and he has a history of cervical surgery, ACDF C6-C7 performed by Dr. Willson in 2020. He was previously managed by Dr. Handy from 2019 to 2020, receiving interventional treatments, including neck and lumbar injections with some relief. The shoulder and neck pain are worse in the morning, with a severity of 7 out of 10. The pain is constant and described as pulsing, throbbing, burning, pinching, cramping, and tightness with grazing sensations. He denies any recent injury, trauma, or falls. Physical therapy was completed earlier this year with minimal relief, and behavioral health care manager was sought about 3 years ago. The patient reports numbness and tingling in the left arm and leg, which sometimes affects the left leg. He denies any spine imaging since worsening of his neck symptoms and completion of PT. Patient reports he was told he needs left shoulder surgery about 2 years ago at [facility] but has been hesitant towards surgery. He is interested to undergo therapeutic shoulder injection with fluoroscopy guidance prior Orthopedic follow-up surgical re-evaluation. - Onset and Timing: Chronic pain for many years, progressively is worse in the morning, constant throughout the day. - Quality and Character: Described as pulsing, throbbing, burning, pinching, cramping, tightness, and grazing sensations. - Primary Location: Left shoulder and neck, radiating to the left arm. - Exacerbating Factors: Worse in the morning. 7/10 with activities - Relieving Factors: Temporary relief from physical therapy. - Affect: Pain impacts daily activities and causes discomfort. - Analgesia: Previously received neck and lumbar injections with some relief. - Activities of Daily Living: Pain affects the ability to perform daily tasks, especially in the morning. PRIOR 05/08/21 Dr. Handy: Mr. Tirado came to my office again after long period of absence. He was on interventional program here with epidural steroid injections. I performed transforaminal cervical on the left epidural steroid injection on the request of Dr. Willson. Patient had prolonged pain relief. That led Dr. Willson to perform a cervical surgery on the patient. He also complains on pain in lower back and I performed injections on him in the lower back transforaminal epidural steroid injections RIGHT L5-S1 & LEFT L4-L5 TFESI 04/07/20 He reported very good pain relief with the injections, unfortunately he contracted COVID-19 and developed pulmonary embolism. He was placed on Eliquis by primary care physician for at least 6 months with no possibility of stopping this medication. After that he will be re-evaluated and possibly we can stop the medications temporarily. Therefore for the next 3 months I cannot perform any injections for him because of the blood thinner medications. I offered him to become chronic opioid therapy patient at least temporarily until the Eliquis which is possible to stop. I gave him the information on chronic opioid therapy pages to read and PHQ questionnaire to fill up. After quick reading of the opioid risk page patient decided not to go for chronic opioid therapy. He said that he will go to his chiropractor and try to temporize his pain by chiropractor in the future. I will schedule this patient for next injection only after 6 months that he had Eliquis prescribed for him. I would need to have his primary care doctor or astronautical engineer evaluation, possibly evaluation by pulmonology whether not he ever can have the 4 days suspension of Eliquis to perform the injections as above. [facility] Medical History Screening for colon cancer Muscle spasms of neck OLIVA (nonalcoholic steatohepatitis) Bleeding hemorrhoids External thrombosed hemorrhoids Transaminitis Hearing loss Left shoulder pain Cervical radiculopathy Hematuria Lower back pain Disc degeneration, lumbar Pulmonary embolism Chronic fatigue Essential hypertension Mixed hyperlipidemia Surgical History History of colonoscopy H/O neck surgery History of rectal polypectomy Family History Father Dementia Mother Hypertension Diabetes Social History Housing: Apartment Alcohol intake: current Alcohol intake frequency: holidays/special occasions only Alcohol type: beer and hard liquor Patient Tobacco Use Status: Former Tobacco user e-Cigarette/Vaping Use: Never Used Second Hand Smoke Exposure: Yes service: No Current occupational status: employed Current occupational exposures/hazards: No Cognitive needs: No Hearing needs: No Vision needs: Yes Review of Systems Const All systems reviewed & are unremarkable except as noted in HPI and below Physical Exam General: Appears afebrile. Alert and oriented. Mood and affect appropriate. Follows and participates in conversation appropriately. Respiratory effort is unlabored. No cough. Able to transition from sit to stand unassisted. Ambulates with bilaterally normal heel strike and toe off. Neck Other: Patient with decreased cervical ROM in all planes/especially with left lateral rotation. Reports minimal neck pain with extension and flexion. Spurling compression test equivocal. Elvey's tension test positive on the left, with radiation of pain from neck to elbow. Lhermitte's test was negative. DTR intact, +2 and symmetrical. Patient demonstrated 5/5 left and 4/5 right motor strength of bilateral upper extremities. 2 + radial pulses. Significant tightness throughout left upper trapezius as well as TTP throughout bilateral upper trapezius muscles. No paravertebral tenderness over facet joint on affected side. Neck: Yes normal visual inspection, Yes no lymphadenopathy, Yes supple, No anterior neck swelling, Yes no JVD, No prominent supraclavicular fat pad and No prominent dorsocervical fat pad Back/Spine/Pelvis Cervical Spine: No collar present, cervical muscular tenderness, pain with cervical ROM, Cervical spine scars present, cervical spasm, No Cervical spine tenderness and No step off deformity Thoracic/Lumbar Spine: thoracic and lumbar spine normal to inspection, No Thoracic/lumbar spine scar(s), No thoracic spinal tenderness and No lumbar spinal tenderness Extrem General: Yes capillary refill normal, Yes no clubbing, cyanosis or edema and Yes no calf tenderness Left upper extremity: shoulder/upper arm (Limited ROM due to pain, increased pain with overhead reach) Details: inspection abnormal, tenderness Location: over the biceps tendon and over the subacromial bursa, axillary nerve sensory function normal and crepitus; no swelling, no ecchymosis and no unsual warmth Results Reviewed Results Reviewed: XR SHOULDER, LEFT 02/04/25 CLINICAL INFORMATION: M25.512 - Pain in left shoulder COMPARISON: None available. TECHNIQUE: AP external rotation, Grashey, scapular Y, and axillary views of the left shoulder. FINDINGS: Small humeral head marginal osteophytes are present. There is no dislocation. There is no fracture. AC joint is intact and not degenerated. IMPRESSION: Mild degenerative changes of the left shoulder joint. XR CERVICAL SPINE 02/04/25 CLINICAL INFORMATION: M54.12 - Radiculopathy, cervical region COMPARISON: 05/15/2020 TECHNIQUE: 5 views of the cervical spine were obtained. FINDINGS: There is mild reversal of the normal cervical lordosis. No fractures are identified. Again noted are changes related to anterior cervical discectomy and fusion at C6-7. Hardware appears intact. Uncovertebral osteophytes narrow the left neural foramen at C6-7 and C7-T1. There is no prevertebral soft tissue edema. IMPRESSION: There is mild reversal of cervical lordosis. This can be related to degenerative changes, positioning, muscle spasm, or posterior soft tissue injury. Mild narrowing of the left C6-7 and C7-T1 neural foramen by uncovertebral osteophytes. MR CERVICAL SPINE WITHOUT CONTRAST 03/24/25 CLINICAL INFORMATION: M 54.12. Left-sided Radiculopathy, cervical region. COMPARISON: March 10, 2020. Correlated to x-ray dated February 04, 2025. TECHNIQUE: MRI of the cervical spine was obtained using routine sequences without contrast. FINDINGS: Craniocervical junction is intact. Normal position of the cerebellar tonsils. Paramagnetic field distortion secondary to metallic hardware at C6-7. No gross bone marrow STIR signal abnormality. 1 mm retrolisthesis C3-4. Reverse curvature, mild apex at C5. Cervical spinal cord signal is normal. C2-3: Left subarticular disc osteophyte complex formation resulting in ventral indentation to the thecal sac. No neuroforamina stenosis. No cord compression. C3-4: Central left subarticular and foraminal broad-based disc osteophyte compresses formation resulting in ventral deformity of the spinal cord. Mild left neuroforamina narrowing. C4-5: Central disc osteophyte compresses formation resulting in ventral indentation to the spinal cord. No neuroforamina stenosis. C5-6: Broad-based disc osteophyte compresses formation resulting in ventral deformity of the thecal sac. Left neuroforamina narrowing. C6-7: Postsurgical changes. Left neuroforamina narrowing. C7-T1: No disc herniation. No neuroforamina stenosis. T1-2: No disc herniation. No neuroforamina stenosis. No prevertebral compartment hematoma, mass or fluid collection. Flow-void signal within the main vessels is normal. Right vertebral artery is dominant. IMPRESSION: Multilevel cervical spondylosis resulting in central spinal canal stenosis and left neuroforamina stenosis from C3-4 to C4-5 and to a lesser extent C5-6. No cord compression, cord edema and or myelopathy. Assessment & Plan Assessment & Plan (1) Left shoulder pain: Code(s): M25.512 - Pain in left shoulder Category: Medical (2) Osteoarthritis of left shoulder: Code(s): M19.012 - Primary osteoarthritis, left shoulder Category: Medical (3) Cervical post-laminectomy syndrome: Code(s): M96.1 - Postlaminectomy syndrome, not elsewhere classified Category: Medical (4) Cervical radiculopathy: Code(s): M54.12 - Radiculopathy, cervical region Category: Medical (5) Cervicalgia: Code(s): M54.2 - Cervicalgia Category: Medical Plan The plan includes continuing physical therapy as it has been beneficial for the patient and considering left shoulder MRI to further evaluate persistent pain, exacerbated by work. He denies any cervical radicular symptoms today. Recent shoulder injection provided good pain relief at rest but pain easily returns to baseline levels with use of left arm and work activities. All questions and concerns have been answered and patient agreed with the treatment plan. Follow up for MRI results and sooner as needed. Patient was informed and verbally consented to the use of an ambient scribe for clinic note documentation during this visit. Orders: Orders MR shoulder LT wo con Today M19.012 - Primary osteoarthritis, left shoulder, M25.512 - Pain in left shoulder Coding Level of Care Code Est Pt Level 4 (89143) Complex EM visit Add On G2211 Diagnoses Left shoulder pain M25.512 Osteoarthritis of left shoulder M19.012 Cervical post-laminectomy syndrome M96.1 Cervical radiculopathy M54.12 Cervicalgia M54.2
[2025-04-01 13:06] VITALS: BP 143/86; PULSE 71; O2SAT 98; BMI 28.3
--- OUTSIDE RECORDS SUMMARY | 2025-04-01 15:44 | XMS_ITS | Clinical Summary ---
Author Organization [facility] Address [address] [place] [address] Care Team Providers Care Manufacturing Engineering Intern Name Role Phone Seble Romero MD Primary [...] age to complete this topic Care Teams Manufacturing Engineering Intern Relationship Specialty Start Date End Date Seble Romero MD [address] [facility] , [address] [facility] D/B/A: [facility] JOSE J Luna [id number] PCP - General Internal Medicine 02/21/17
--- OUTSIDE RECORDS SUMMARY | 2025-04-01 15:44 | XMS_ITS | Clinical Summary ---
Author Organization [facility] Address [address] [place] [address] Phone Care Team Providers Care Deaf/Hard Of Hearing Specialist Name Role Phone Seble Oscar MD Primary Care Provider [phone] Allergies Active Allergy Reactions Criticality Noted Date Comments Prochlorperazine 09/10/2021 Medications No known medications Encounters Date Type Department Care Team Description 02/19/2025 Lab Requisition [facility] - Main Lab [address] [facility] [place] [address] Griffin Mayo PA Benign essential microscopic hematuria 01/21/2025 10:57 AM EDT - 01/21/2025 12:10 PM EDT Emergency [facility] Emergency [address] [place] [address] Quentin Blunt MD Hematuria, unspecified [...] AM EDT) Final Diagnosis A. Urine, Voided, [id number]: Negative for high grade urothelial carcinoma. Paucicellular specimen. Results of UroVysion fluorescence in situ hybridization (FISH) testing: CEP3: Normal CEP7: Normal CEP17: Normal LSI 9p21: Normal Interpretation: Normal profile Controls stained appropriately. Note: The results are intended as a screening device and should be interpreted in association with other clinical and pathological findings. 03/11/2025 4:28 PM EDT [facility] at 1628 EDT Specimen A Adequacy Satisfactory for evaluation 03/11/2025 4:28 PM EDT [facility] Clinical Information Benign essential microscopic hematuria R31.1 Urine Cytology/FISH (now) 03/11/2025 4:28 PM EDT [facility] Gross Description A. Urine, Voided, [id number]: Received one ThinPrep slide for cytology and one ThinPrep slide for UroVysion FISH 03/11/2025 4:28 PM EDT [facility] Disclaimer Unless otherwise specified, all tissue is 10% NB formalin fixed and paraffin embedded. Technical pathology services provided by [facility] at [address], [place] [address] (CLIA #[id number]/Tamar Hernandez MD, Marketing Underwriter) 03/11/2025 4:28 PM EDT [facility] Urine Urine specimen from urethra / Unknown 02/12/2025 02/19/2025 1:30 PM EDT us Griffin DAVIS LAB CYTOLOGY ORDERABLES Final Result [facility] [address] [place] [address], [place] [phone] * CBC auto differential (01/21/2025 10:25 AM EDT) WBC 6.0 4.8 - 10.8 K/mcL LAB HEMETOLOGY METHOD 01/21/2025 10:39 AM T [facility] RBC 5.00 4.50 - 5.50 M/mcL LAB HEMETOLOGY METHOD 01/21/2025 10:39 AM EDT [facility] Hemoglobin 14.5 13.5 - 17.5 g/dL LAB HEMETOLOGY METHOD 01/21/2025 10:39 AM T [facility] Hematocrit 43.6 42.0 - 54.0 % LAB HEMETOLOGY METHOD 01/21/2025 10:39 AM EDT [facility] MCV 86.5 79.0 - 98.0 FL LAB HEMETOLOGY METHOD 01/21/2025 10:39 AM [facility] MCH 28.8 27.0 - 32.0 pcg LAB HEMETOLOGY METHOD [facility]25 10[facility] M[facility]C 33.3 32.0 - 37.0 g/dL LAB HEMETOLOGY METHOD 01/21/2025 10:39 AM [facility] RDW 13.2 11.0 - 15.0 % LAB HEMETOLOGY METHOD 01/21/2025 10:39 AM [facility] Platelets 274 130 - 400 K/mcL LAB HEMETOLOGY METHOD 01/21/2025 10:39 AM [facility] MPV 10.1 7.0 - 11.0 FL LAB HEMETOLOGY METHOD 01/21/2025 10:39 AM [facility] NRBC 0.0 <1.0 % LAB HEMETOLOGY METHOD 01/21/2025 10:39 AM [facility] NRBC Absolute 0.00 <0.10 K/mcL LAB HEMETOLOGY METHOD 01/21/2025 10:39 AM [facility] Neutrophils Relative 57.6 % LAB HEMETOLOGY METHOD 01/21/2025 10:39 AM [facility] Lymphocytes Relative 32.1 % LAB HEMETOLOGY METHOD 01/21/2025 10:39 AM [facility] Monocytes Relative 7.5 % LAB HEMETOLOGY METHOD 01/21/2025 10:39 AM [facility] Eosinophils Relative 1.8 % LAB HEMETOLOGY METHOD 01/21/2025 10:39 AM [facility] Basophils Relative 0.7 % LAB HEMETOLOGY METHOD 01/21/2025 10:39 AM [facility] Immature Granulocytes Relative 0.3 % LAB HEMETOLOGY METHOD 01/21/2025 10:39 AM [facility] Neutrophils Absolute 3.44 1.50 - 7.00 K/mcL LAB HEMETOLOGY METHOD 01/21/2025 10:39 AM [facility] Lymphocytes Absolute 1.92 1.00 - 5.00 K/mcL LAB HEMETOLOGY METHOD 01/21/2025 10:39 AM EDT [facility] Monocytes Absolute 0.45 0.20 - 1.00 K/[facility] LAB HEMETOLOGY METHOD 01/21/2025 10:39 AM EDT [facility] Eosinophils Absolute 0.11 0.00 - 0.50 K/[facility] LAB HEMETOLOGY METHOD 01/21/2025 10:39 AM EDT [facility] Basophils Absolute 0.04 0.00 - 0.20 K/[facility] LAB HEMETOLOGY METHOD 01/21/2025 10:39 AM T [facility] Immature Granulocytes Absolute 0.02 0.00 - 0.03 K/[facility] LAB HEMETOLOGY METHOD 01/21/2025 10:39 AM [facility] Blood Venous blood specimen / Unknown Venipuncture / Unknown 01/21/2025 10:25 AM EDT 01/21/2025 10:34 AM EDT Mickey DAVIS LAB BLOOD ORDERABLES Final Result [facility] [address] [place] [address], * (ABNORMAL) Comprehensive metabolic panel (01/21/2025 10:25 AM EDT) Sodium 139 133 - 145 mmol/L LAB CHEMISTRY METHOD 01/21/2025 11:32 AM [facility] Potassium 4.3 3.5 - 5.5 mmol/L LAB CHEMISTRY METHOD 01/21/2025 11:32 AM [facility] Chloride 107 96 - 110 mmol/L LAB CHEMISTRY METHOD 01/21/2025 11:32 AM [facility] CO2 29 21 - 32 mmol/L LAB CHEMISTRY METHOD 01/21/2025 11:32 AM [facility] Anion Gap 3 3 - 11 LAB CHEMISTRY METHOD 01/21/2025 11:32 AM [facility] Glucose 106(H) 70 - 100 mg/dL LAB CHEMISTRY METHOD 01/21/2025 11:32 AM [facility] BUN 16 5 - 25 mg/dL LAB CHEMISTRY METHOD 01/21/2025 11:32 AM [facility] Creatinine 1.20 0.70 - 1.30 mg/dL LAB CHEMISTRY METHOD 01/21/2025 11:32 AM [facility] eGFR 70 >=60 mL/min/1. 73m2 LAB CHEMISTRY METHOD 01/21/2025 11:32 AM [facility] Comment:Calculation based on the Chronic Kidney Disease Epidemiology Collaboration (CKD-EPI) equation refit without adjustment for race. BUN/Creatinine Ratio 13.3 LAB CHEMISTRY METHOD 01/21/2025 11:32 AM [facility] Calcium 9.3 8.5 - 10.5 mg/dL LAB CHEMISTRY METHOD 01/21/2025 11:32 AM [facility] AST (SGOT) 34 10 - 42 unit/L LAB CHEMISTRY METHOD 01/21/2025 11:32 AM [facility] ALT (SGPT) 28 10 - 60 unit/L LAB CHEMISTRY METHOD 01/21/2025 11:32 AM [facility] Alkaline Phosphatase 87 42 - 121 unit/L LAB CHEMISTRY METHOD 01/21/2025 11:32 AM [facility] Total Protein 7.2 6.0 - 8.0 g/dL LAB CHEMISTRY METHOD 01/21/2025 11:32 AM [facility] Albumin 3.8 3.2 - 5.0 g/dL LAB CHEMISTRY METHOD 01/21/2025 11:32 AM [facility] Total Bilirubin 0.9 0.0 - 1.4 mg/dL LAB CHEMISTRY METHOD 01/21/2025 11:32 AM [facility] Blood Venous blood specimen / Unknown Venipuncture / Unknown 01/21/2025 10:25 AM EDT 01/21/2025 10:34 AM EDT us Mickey DAVIS LAB BLOOD ORDERABLES Final Result [facility] [address] [place] [address], [place] [phone] * Urinalysis with reflex microscopic and culture (01/21/2025 9:30 AM EDT) Specific Campbell Urine 1.008 1.003 - 1.030 LAB URINALYSIS - AUTOMATED METHOD 01/21/2025 10:15 AM [facility] pH, Urine 7.5 5.0 - 8.0 pH LAB URINALYSIS - AUTOMATED METHOD 01/21/2025 10:15 AM [facility] Leukocytes, Urine Negative Negative LAB URINALYSIS - AUTOMATED METHOD 01/21/2025 10:15 AM [facility] Nitrite, Urine Negative Negative LAB URINALYSIS - AUTOMATED METHOD 01/21/2025 10:15 AM [facility] Protein, Urine Negative <=Trace mg/dL LAB URINALYSIS - AUTOMATED METHOD 01/21/2025 10:15 AM [facility] Glucose, Urine Negative Negative mg/dL LAB URINALYSIS - AUTOMATED METHOD 01/21/2025 10:15 AM [facility] Ketones, Urine Negative Negative mg/dL LAB URINALYSIS - AUTOMATED METHOD 01/21/2025 10:15 AM [facility] Urobilinogen, Urine 0.2 0.2 - 1.0 mg/dL LAB URINALYSIS - AUTOMATED METHOD 01/21/2025 10:15 AM [facility] Bilirubin, Urine Negative Negative LAB URINALYSIS - AUTOMATED METHOD 01/21/2025 10:15 AM EDT [facility] Blood, Urine Negative Negative LAB URINALYSIS - AUTOMATED METHOD 01/21/2025 10:15 AM EDT [facility] Urine Urine specimen obtained by clean catch procedure / Unknown Non-blood Collection / Unknown 01/21/2025 9:30 AM EDT 01/21/2025 10:06 AM EDT Mickey DAVIS LAB URINE ORDERABLES Final Result [facility] [address] [place] [address], [place] [phone] * Grubbs urine culture tube (01/21/2025 9:30 AM EDT) Extra Tube Hold for add-ons. 01/21/2025 12:01 PM EDT [facility] Comment:Auto resulted. Urine Urine specimen obtained by clean catch procedure / Unknown Non-blood Collection / Unknown 01/21/2025 9:30 AM EDT 01/21/2025 10:06 AM EDT Mickey DAVIS LAB URINE ORDERABLES Final Result [facility] [address] [place] [address], [place] [phone] from Last 3 Months Insurance [facility] [employer] Care Teams Deaf/Hard Of Hearing Specialist Relationship Specialty Start Date End Date Seble Oscar MD 2 [facility] , [address] Physician Associ D/B/A: [facility] JOSE J Luna PCP - General Internal Medicine 02/21/17
--- OUTSIDE RECORDS SUMMARY | 2025-04-01 15:44 | XMS_ITS | Encounter Summary ---
Author Organization [employer] Address [address] [place] [address] Care Team Providers Care Senior Telecommunications Specialist Name Role Phone Seble Oscar MD Primary Care Provider [phone] Encounter Details Date Type Department Care Team (Late st Contact Info) Description 02/19/2025 Lab Requisition [facility] - Main Lab [address] [place] [address] Griffin Mayo, RYAN [address] [place] [id number] Benign essential microscopic hematuria Social History Tobacco [...] AM EDT) Final Diagnosis A. Urine, Voided, [id number]: Negative for high grade urothelial carcinoma. Paucicellular specimen. Results of UroVysion fluorescence in situ hybridization (FISH) testing: CEP3: Normal CEP7: Normal CEP17: Normal LSI 9p21: Normal Interpretation: Normal profile Controls stained appropriately. Note: The results are intended as a screening device and should be interpreted in association with other clinical and pathological findings. 03/11/2025 4:28 PM EDT [facility] at 1628 EDT Specimen A Adequacy Satisfactory for evaluation 03/11/2025 4:28 PM EDT [facility] Clinical Information Benign essential microscopic hematuria R31.1 Urine Cytology/FISH (now) 03/11/2025 4:28 PM EDT [facility] Gross Description A. Urine, Voided, [id number]: Received one ThinPrep slide for cytology and one ThinPrep slide for UroVysion FISH 03/11/2025 4:28 PM EDT [facility] Disclaimer Unless otherwise specified, all tissue is 10% NB formalin fixed and paraffin embedded. Technical pathology services provided by [facility] at [address] [facility] [address], [place] [address] (CLIA #[id number]/Tamar Hernandez MD, Pallet Rectifier) 03/11/2025 4:28 PM EDT [facility] Urine Urine specimen from urethra / Unknown 02/12/2025 02/19/2025 1:30 PM EDT us Griffin DAVIS LAB CYTOLOGY ORDERABLES Final Result [facility] [address] [place] [address], documented in this encounter Visit Diagnoses Diagnosis Benign essential microscopic hematuria documented in this encounter Care Teams Senior Telecommunications Specialist Relationship Specialty Start Date End Date Seble Oscar MD 2 [facility] , [address] Physician Associ D/B/A: [facility] JOSE J Luna PCP - General Internal Medicine 02/21/17 documented as of this encounter
== END 2025-04-01 13:15 | disposition home or self-care (01) ==
LOC: HO.PMC 13:02
PROVIDERS: PCP Internal Medicine; Visit Provider Nurse Practitioner Family
DX: M25.512 Pain in left shoulder (principal); M19.012 Primary osteoarthritis, left shoulder; M96.1 Postlaminectomy syndrome, not elsewhere classified; M54.12 Radiculopathy, cervical region; M54.2 Cervicalgia
CPT/HCPCS: 99214

== ENCOUNTER → 2025-04-01 13:02 | Outpatient (BNVA) | payer OTHER, SELFPAY | PROVIDERS: PCP Internal Medicine; Visit Provider Nurse Practitioner Family | DX: M25.512 Pain in left shoulder (principal); M19.012 Primary osteoarthritis, left shoulder; M96.1 Postlaminectomy syndrome, not elsewhere classified; M54.12 Radiculopathy, cervical region; M54.2 Cervicalgia | CPT/HCPCS: 99212 ==

== ENCOUNTER 2025-04-18 10:05 | Outpatient (AMB) | payer OTHER, SELFPAY ==
--- NOTE | 2025-04-18 10:09 | A.OFFVIS_ITS ---
Vital Signs 3 04/18/25 10:14 Height 5 ft 4 in Weight 163 lb 2 oz BMI 28.0 BP 189/90 H Blood Pressure Location Rt brachial Position Sitting Pulse 85 Pulse Source Pulse Oximeter Pulse Oximetry (%) 97 Oxygen Delivery Method Room Air Intake Visit Reasons: S/P (L) Shoulder Intra-Articular Steroid Injection Intake Note: Pain today 09/05 Picker And Packer Required: No Accompanied by: Self / Same As Patient Allergies prochlorperazine (From COMPAZINE) Allergy (Intermediate, Verified 04/18/25 10:14) DIFFICULTY BREATHING gabapentin Allergy (Mild, Verified 04/18/25 10:14) depression HPI Comments Details: The patient is a 59-year-old male presenting with chronic neck pain and left shoulder pain. He has a history of cervical fusion and reports that his neck pain has been persistent. The pain is described as minimal today, but he experiences exacerbations, particularly upon waking and use of left arm. His shoulder range of motion as intact, full and without significant pain with overhead reaches or backside pocket reach following recent left shoulder steroid injection on 03/18/25. The patient also completed physical therapy for the shoulder last week. An Orthopedic surgeon previously told the patient they needed surgery on the left shoulder. The patient reports neck pain, which is more prominent on the left side, and has a history of neck surgery. An MRI of the neck revealed multilevel cervical spondylosis, central spinal canal stenosis, and left neuroforaminal stenosis at C3-C4, C4-C5, and to a lesser extent at C5-C6. Associated symptoms include occasional numbness and tingling in the left arm. An MRI of the left shoulder was ordered on April 01, but the patient reports it has not yet been approved or scheduled. Past Procedures: 03/18/25: Left shoulder intra-articular steroid injection-80% pain relief at rest PRIOR: The patient is a 59-year-old male presenting with chronic neck and shoulder pain. The patient has a history of cervical discectomy and fusion at C6-C7, with intact hardware as confirmed by recent imaging. Imaging studies reveal bone spurs in the cervical spine and left shoulder with degenerative changes and mild narrowing of the left C6-7 and C7-T1 neural foramen, causing persistent neck pain and left shoulder pain. The patient experiences numbness and tingling in the fingers, consistent with the level of neuroforaminal narrowing. He has undergone physical therapy for two years, which he finds beneficial, but insurance requires further therapy before approving updated cervical MRI. His insurance has approved an injection for the left shoulder, and he is interested with scheduling it. Denies any recent cough, cold, infection, fever or any other significant changes in medical history since last office visit. PRIOR: The patient is a 59-year-old male presenting with left shoulder pain and neck pain. The neck pain radiates to the left arm, and he has a history of cervical surgery, ACDF C6-C7 performed by Dr. Willson in 2020. He was previously managed by Dr. Handy from 2019 to 2020, receiving interventional treatments, including neck and lumbar injections with some relief. The shoulder and neck pain are worse in the morning, with a severity of 7 out of 10. The pain is constant and described as pulsing, throbbing, burning, pinching, cramping, and tightness with grazing sensations. He denies any recent injury, trauma, or falls. Physical therapy was completed earlier this year with minimal relief, and career coordinator was sought about 3 years ago. The patient reports numbness and tingling in the left arm and leg, which sometimes affects the left leg. He denies any spine imaging since worsening of his neck symptoms and completion of PT. Patient reports he was told he needs left shoulder surgery about 2 years ago at [facility] but has been hesitant towards surgery. He is interested to undergo therapeutic shoulder injection with fluoroscopy guidance prior Orthopedic follow-up surgical re-evaluation. - Onset and Timing: Chronic pain for many years, progressively is worse in the morning, constant throughout the day. - Quality and Character: Described as pulsing, throbbing, burning, pinching, cramping, tightness, and grazing sensations. - Primary Location: Left shoulder and neck, radiating to the left arm. - Exacerbating Factors: Worse in the morning. 12/05 with activities - Relieving Factors: Temporary relief from physical therapy. - Affect: Pain impacts daily activities and causes discomfort. - Analgesia: Previously received neck and lumbar injections with some relief. - Activities of Daily Living: Pain affects the ability to perform daily tasks, especially in the morning. PRIOR 05/08/21 Dr. Handy: Mr. Tirado came to my office again after long period of absence. He was on interventional program here with epidural steroid injections. I performed transforaminal cervical on the left epidural steroid injection on the request of Dr. Willson. Patient had prolonged pain relief. That led Dr. Willson to perform a cervical surgery on the patient. He also complains on pain in lower back and I performed injections on him in the lower back transforaminal epidural steroid injections RIGHT L5-S1 & LEFT L4-L5 TFESI 04/07/20 He reported very good pain relief with the injections, unfortunately he contracted COVID-19 and developed pulmonary embolism. He was placed on Eliquis by primary care physician for at least 6 months with no possibility of stopping this medication. After that he will be re-evaluated and possibly we can stop the medications temporarily. Therefore for the next 3 months I cannot perform any injections for him because of the blood thinner medications. I offered him to become chronic opioid therapy patient at least temporarily until the Eliquis which is possible to stop. I gave him the information on chronic opioid therapy pages to read and PHQ questionnaire to fill up. After quick reading of the opioid risk page patient decided not to go for chronic opioid therapy. He said that he will go to his chiropractor and try to temporize his pain by chiropractor in the future. I will schedule this patient for next injection only after 6 months that he had Eliquis prescribed for him. I would need to have his primary care doctor or circuit judge evaluation, possibly evaluation by pulmonology whether not he ever can have the 4 days suspension of Eliquis to perform the injections as above. [facility] Medical History Screening for colon cancer Muscle spasms of neck OLIVA (nonalcoholic steatohepatitis) Bleeding hemorrhoids External thrombosed hemorrhoids Transaminitis Hearing loss Left shoulder pain Cervical radiculopathy Hematuria Lower back pain Disc degeneration, lumbar Pulmonary embolism Chronic fatigue Essential hypertension Mixed hyperlipidemia Surgical History History of colonoscopy H/O neck surgery History of rectal polypectomy Family History Father Dementia Mother Hypertension Diabetes Social History Housing: Apartment Alcohol intake: current Alcohol intake frequency: holidays/special occasions only Alcohol type: beer and hard liquor Patient Tobacco Use Status: Former Tobacco user e-Cigarette/Vaping Use: Never Used Second Hand Smoke Exposure: Yes service: No Current occupational status: employed Current occupational exposures/hazards: No Cognitive needs: No Hearing needs: No Vision needs: Yes Review of Systems Const Details: - Musculoskeletal: Reports left-sided neck pain and left shoulder pain. Left shoulder pain is partially improved with recent cortisone injection. - Neurological: Reports occasional numbness and tingling in the left arm. All systems reviewed & are unremarkable except as noted in HPI and below Physical Exam Vital Signs: Last Vital Signs Pulse 85 04/18/25 10:14 BP 189/90 H 04/18/25 10:14 Pulse Ox 97 04/18/25 10:14 Oxygen Delivery Method Room Air 04/18/25 10:14 BMI result Body Mass Index 28.0 General: Appears afebrile. Alert and oriented. Mood and affect appropriate. Follows and participates in conversation appropriately. Respiratory effort is unlabored. No cough. Able to transition from sit to stand unassisted. Ambulates with bilaterally normal heel strike and toe off. Neck Other: Patient with decreased cervical ROM in all planes/especially with left lateral rotation. Reports minimal neck pain with extension and flexion. Spurling compression test equivocal. Elvey's tension test positive on the left, with radiation of pain from neck to elbow. Lhermitte's test was negative. DTR intact, +2 and symmetrical. Patient demonstrated 5/5 motor strength of bilateral upper extremities. 2 + radial pulses. No paravertebral tenderness over facet joint on affected side. Neck: Yes normal visual inspection, Yes no lymphadenopathy, Yes supple, No anterior neck swelling, Yes no JVD, No prominent supraclavicular fat pad and No prominent dorsocervical fat pad Back/Spine/Pelvis Cervical Spine: No collar present, cervical muscular tenderness, pain with cervical ROM, Cervical spine scars present, cervical spasm, No Cervical spine tenderness and No step off deformity Thoracic/Lumbar Spine: thoracic and lumbar spine normal to inspection, No Thoracic/lumbar spine scar(s), No thoracic spinal tenderness and No lumbar spinal tenderness Extrem General: Yes capillary refill normal, Yes no clubbing, cyanosis or edema and Yes no calf tenderness Left upper extremity: shoulder/upper arm Details: inspection abnormal, tenderness (mild TTP global shoulder) and crepitus; no swelling, no ecchymosis, no deformity and no unsual warmth Results Reviewed Results Reviewed: XR SHOULDER, LEFT 02/04/25 CLINICAL INFORMATION: M25.512 - Pain in left shoulder COMPARISON: None available. TECHNIQUE: AP external rotation, Grashey, scapular Y, and axillary views of the left shoulder. FINDINGS: Small humeral head marginal osteophytes are present. There is no dislocation. There is no fracture. AC joint is intact and not degenerated. IMPRESSION: Mild degenerative changes of the left shoulder joint. XR CERVICAL SPINE 02/04/25 CLINICAL INFORMATION: M54.12 - Radiculopathy, cervical region COMPARISON: 05/15/2020 TECHNIQUE: 5 views of the cervical spine were obtained. FINDINGS: There is mild reversal of the normal cervical lordosis. No fractures are identified. Again noted are changes related to anterior cervical discectomy and fusion at C6-7. Hardware appears intact. Uncovertebral osteophytes narrow the left neural foramen at C6-7 and C7-T1. There is no prevertebral soft tissue edema. IMPRESSION: There is mild reversal of cervical lordosis. This can be related to degenerative changes, positioning, muscle spasm, or posterior soft tissue injury. Mild narrowing of the left C6-7 and C7-T1 neural foramen by uncovertebral osteophytes. MR CERVICAL SPINE WITHOUT CONTRAST 03/24/25 CLINICAL INFORMATION: M 54.12. Left-sided Radiculopathy, cervical region. COMPARISON: March 10, 2020. Correlated to x-ray dated February 04, 2025. TECHNIQUE: MRI of the cervical spine was obtained using routine sequences without contrast. FINDINGS: Craniocervical junction is intact. Normal position of the cerebellar tonsils. Paramagnetic field distortion secondary to metallic hardware at C6-7. No gross bone marrow STIR signal abnormality. 1 mm retrolisthesis C3-4. Reverse curvature, mild apex at C5. Cervical spinal cord signal is normal. C2-3: Left subarticular disc osteophyte complex formation resulting in ventral indentation to the thecal sac. No neuroforamina stenosis. No cord compression. C3-4: Central left subarticular and foraminal broad-based disc osteophyte compresses formation resulting in ventral deformity of the spinal cord. Mild left neuroforamina narrowing. C4-5: Central disc osteophyte compresses formation resulting in ventral indentation to the spinal cord. No neuroforamina stenosis. C5-6: Broad-based disc osteophyte compresses formation resulting in ventral deformity of the thecal sac. Left neuroforamina narrowing. C6-7: Postsurgical changes. Left neuroforamina narrowing. C7-T1: No disc herniation. No neuroforamina stenosis. T1-2: No disc herniation. No neuroforamina stenosis. No prevertebral compartment hematoma, mass or fluid collection. Flow-void signal within the main vessels is normal. Right vertebral artery is dominant. IMPRESSION: Multilevel cervical spondylosis resulting in central spinal canal stenosis and left neuroforamina stenosis from C3-4 to C4-5 and to a lesser extent C5-6. No cord compression, cord edema and or myelopathy. Assessment & Plan Assessment & Plan (1) DDD (degenerative disc disease): Category: Medical (2) Cervical radiculopathy: Code(s): M54.12 - Radiculopathy, cervical region Category: Medical (3) Left shoulder pain: Code(s): M25.512 - Pain in left shoulder Category: Medical (4) Cervical post-laminectomy syndrome: Code(s): M96.1 - Postlaminectomy syndrome, not elsewhere classified Category: Medical (5) Cervicalgia: Code(s): M54.2 - Cervicalgia Category: Medical (6) Osteoarthritis of left shoulder: Code(s): M19.012 - Primary osteoarthritis, left shoulder Category: Medical Plan An order for an MRI of the left shoulder was placed on April 01, but it is still pending. The patient will call the insurance company and the MRI department to follow up on the prior authorization. He recently completed PT and completed cortisone injection with partial improvement. For management of the cervicalgia and radicular symptoms, the patient will proceed with left parasagittal C5-C6 interlaminar epidural steroid injection with local and fluoroscopy. The procedure will be scheduled after the patient returns from vacation mid April. All questions and concerns have been answered and patient agreed with the treatment plan. Follow up after injection and sooner as needed. Patient was informed and verbally consented to the use of an ambient scribe for clinic note documentation during this visit. Coding Level of Care Code Est Pt Level 4 (13415) Complex visit Add On G2211 Diagnoses DDD (degenerative disc disease) Cervical radiculopathy M54.12 Left shoulder pain M25.512 Cervical post-laminectomy syndrome M96.1 Cervicalgia M54.2 Osteoarthritis of left shoulder M19.012
[2025-04-18 10:14] VITALS: BP 189/90; PULSE 85; O2SAT 97; BMI 28.0
--- OUTSIDE RECORDS SUMMARY | 2025-04-18 10:43 | XMS_ITS | Encounter Summary ---
Author Organization [facility] Address [address] [place] [address] Care Team Providers Care Trailer Body Assembler Name Role Phone Seble Oscar MD Primary Care Provider [phone] Encounter Details Date Type Department Care Team (Late st Contact Info) Description 02/19/2025 Lab Requisition [facility] - Main Lab [address] [facility] [place] [address] Griffin Mayo, RYAN [address] [place] [id number] Benign essential microscopic hematuria Social History Tobacco [...] AM EDT) Final Diagnosis A. Urine, Voided, [id number]: Negative for high grade urothelial carcinoma. Paucicellular specimen. Results of UroVysion fluorescence in situ hybridization (FISH) testing: CEP3: Normal CEP7: Normal CEP17: Normal LSI 9p21: Normal Interpretation: Normal profile Controls stained appropriately. Note: The results are intended as a screening device and should be interpreted in association with other clinical and pathological findings. 03/11/2025 4:28 PM EDT [facility] at 1628 EDT Specimen A Adequacy Satisfactory for evaluation 03/11/2025 4:28 PM EDT [facility] Clinical Information Benign essential microscopic hematuria R31.1 Urine Cytology/FISH (now) 03/11/2025 4:28 PM EDT [facility] Gross Description A. Urine, Voided, [id number]: Received one ThinPrep slide for cytology and one ThinPrep slide for UroVysion FISH 03/11/2025 4:28 PM EDT [facility] Disclaimer Unless otherwise specified, all tissue is 10% NB formalin fixed and paraffin embedded. Technical pathology services provided by [facility] at [address], [place] [address] (CLIA #[id number]/Tamar Hernandez MD, Station Agent) 03/11/2025 4:28 PM EDT [facility] Urine Urine specimen from urethra / Unknown 02/12/2025 02/19/2025 1:30 PM EDT us [facility] CYTOLOGY ORDERABLES Final Result [facility] [address] [place] [address], documented in this encounter Visit Diagnoses Diagnosis Benign essential microscopic hematuria documented in this encounter Care Teams Trailer Body Assembler Relationship Specialty Start Date End Date Seble Oscar MD [address] [facility] D/B/A: [facility] JOSE J Luna PCP - General Internal Medicine 02/21/17 documented as of this encounter
--- OUTSIDE RECORDS SUMMARY | 2025-04-18 10:43 | XMS_ITS | Clinical Summary ---
Author Organization [facility] Address [address] [place] [address] Care Team Providers Care Paper Bags Sewing Machine Operator Name Role Phone Seble Romero [...] age to complete this topic Care Teams Paper Bags Sewing Machine Operator Relationship Specialty Start Date End Date Seble Romero MD [address] [facility] D/B/A: [facility] JOSE J Luna [id number] PCP - General Internal Medicine 02/21/17
--- OUTSIDE RECORDS SUMMARY | 2025-04-18 10:43 | XMS_ITS | Clinical Summary ---
Author Organization [facility] Address [address] [place] [address] Phone Care Team Providers Care Sleeve Tailor Name Role Phone Seble Oscar MD Primary Care Provider Allergies Active Allergy Reactions Criticality Noted Date Comments Prochlorperazine 09/10/2021 Medications No known medications Encounters Date Type Department Care Team Description 04/14/2025 Lab Requisition [facility] Lab [address] [place] [id number] Benito Ma MD Benign essential microscopic hematuria 02/19/2025 Lab Requisition [facility] Lab [address] [place] [phone] Griffin Mayo PA Benign essential microscopic hematuria 01/21/2025 10:57 AM EDT - 01/21/2025 12:10 PM EDT Emergency [facility] Emergency [address] [place] [id number] Quentin Blunt MD Hematuria, unspecified type (Primary [...] Date/Time Associated Diagnosis Comments NON-GYNECOLOGIC CYTOLOGY Routine 04/11/2025 12:00 AM EST Benign essential microscopic hematuria NON-GYNECOLOGIC CYTOLOGY Routine 02/12/2025 12:00 AM EDT [...] Last 3 Months Results * Non-gynecologic cytology (04/11/2025 12:00 AM EST) Only the most recent of2 resultswithin the time period is included. Final Diagnosis A. Urine, Voided, ([id number]): Negative for high grade urothelial carcinoma. 04/17/2025 3:44 PM EST [facility] at 1544 EST Specimen A Adequacy Satisfactory for evaluation 04/17/2025 3:44 PM EST [facility] Clinical Information Benign essential microscopic hematuria R31.1 Urine Cytology 04/17/2025 3:44 PM EST [facility] Gross Description A. Urine, Voided, ([id number]): Received one ThinPrep slide for cytology. 04/17/2025 3:44 PM EST [facility] Disclaimer Unless otherwise specified, all tissue is 10% NB formalin fixed and paraffin embedded. Technical pathology services provided by [facility] at [address], [place] [address] (CLIA #[id number]/Louis Hernandez MD, Auto Glass Technician) 04/17/2025 3:44 PM EST [facility] Urine Urine specimen from urethra / Unknown 04/11/2025 04/14/2025 2:11 PM EST us Benito Ma MD LAB CYTOLOGY ORDERABLES Fin al Result [facility] [address] [place] [address], [place] [phone] * CBC auto differential (01/21/2025 10:25 AM EDT) WBC 6.0 4.8 - 10.8 K/mcL LAB HEMETOLOGY METHOD 01/21/2025 10:39 AM EDT [facility] RBC 5.00 4.50 - 5.50 M/mcL LAB HEMETOLOGY METHOD 01/21/2025 10:39 AM EDT [facility] Hemoglobin 14.5 13.5 - 17.5 g/dL LAB HEMETOLOGY METHOD 01/21/2025 10:39 AM EDT [facility] Hematocrit 43.6 42.0 - 54.0 % LAB HEMETOLOGY METHOD 01/21/2025 10:39 AM EDT [facility] MCV 86.5 79.0 - 98.0 FL LAB HEMETOLOGY [facility] MCH 28.8 27.0 - 32.0 pcg LAB HEMETOLOGY METHOD [facility] MCHC 33.3 32.0 - 37.0 g/dL LAB HEMETOLOGY METHOD 01/21/2025 10:39 AM [facility] RDW 13.2 11.0 - 15.0 % LAB HEMETOLOGY METHOD 01/21/2025 10:39 AM [facility] Platelets 274 130 - 400 K/mcL LAB HEMETOLOGY METHOD 01/21/2025 10:39 AM [facility] MPV 10.1 7.0 - 11.0 FL LAB HEMETOLOGY METHOD 01/21/2025 10:39 AM [facility] NRBC 0.0 <1.0 % LAB HEMETOLOGY METHOD 01/21/2025 10:39 AM [facility] NRBC Absolute 0.00 <0.10 K/mcL LAB HEMETOLOGY METHOD 01/21/2025 10:39 AM [facility] Neutrophils Relative 57.6 % LAB HEMETOLOGY METHOD 01/21/2025 10:39 AM [facility] Lymphocytes Relative 32.1 % LAB HEMETOLOGY METHOD 01/21/2025 10:39 AM [facility] Monocytes Relative 7.5 % LAB HEMETOLOGY METHOD 01/21/2025 10:39 AM [facility] Eosinophils Relative 1.8 % LAB HEMETOLOGY METHOD 01/21/2025 10:39 AM [facility] Basophils Relative 0.7 % LAB HEMETOLOGY METHOD 01/21/2025 10:39 AM [facility] Immature Granulocytes Relative 0.3 % LAB HEMETOLOGY METHOD 01/21/2025 10:39 AM [facility] Neutrophils Absolute 3.44 1.50 - 7.00 K/mcL LAB HEMETOLOGY METHOD 01/21/2025 10:39 AM [facility] Lymphocytes Absolute 1.92 1.00 - 5.00 K/mcL LAB HEMETOLOGY METHOD 01/21/2025 10:39 AM EDT [facility] Monocytes Absolute 0.45 0.20 - 1.00 K/[facility] LAB HEMETOLOGY METHOD 01/21/2025 10:39 AM EDT [facility] Eosinophils Absolute 0.11 0.00 - 0.50 K/[facility] LAB HEMETOLOGY METHOD 01/21/2025 10:39 AM EDT [facility] Basophils Absolute 0.04 0.00 - 0.20 K/[facility] LAB HEMETOLOGY METHOD 01/21/2025 10:39 AM T [facility] Immature Granulocytes Absolute 0.02 0.00 - 0.03 K/[facility] LAB HEMETOLOGY METHOD 01/21/2025 10:39 AM [facility] Blood Venous blood specimen / Unknown Venipuncture / Unknown 01/21/2025 10:25 AM EDT 01/21/2025 10:34 AM EDT Mickey DAVIS LAB BLOOD ORDERABLES Final Result [facility] [address] [place] [address], * (ABNORMAL) Comprehensive metabolic panel (01/21/2025 10:25 AM EDT) Sodium 139 133 - 145 mmol/L LAB CHEMISTRY METHOD 01/21/2025 11:32 AM [facility] Potassium 4.3 3.5 - 5.5 mmol/L LAB CHEMISTRY METHOD 01/21/2025 11:32 AM [facility] Chloride 107 96 - 110 mmol/L LAB CHEMISTRY METHOD 01/21/2025 11:32 AM [facility] CO2 29 21 - 32 mmol/L LAB CHEMISTRY METHOD 01/21/2025 11:32 AM [facility] Anion Gap 3 3 - 11 LAB CHEMISTRY METHOD 01/21/2025 11:32 AM [facility] Glucose 106(H) 70 - 100 mg/dL LAB CHEMISTRY METHOD 01/21/2025 11:32 AM [facility] BUN 16 5 - 25 mg/dL LAB CHEMISTRY METHOD 01/21/2025 11:32 AM [facility] Creatinine 1.20 0.70 - 1.30 mg/dL LAB CHEMISTRY METHOD 01/21/2025 11:32 AM [facility] eGFR 70 >=60 mL/min/1. 73m2 LAB CHEMISTRY METHOD 01/21/2025 11:32 AM [facility] Comment:Calculation based on the Chronic Kidney Disease Epidemiology Collaboration (CKD-EPI) equation refit without adjustment for race. BUN/Creatinine Ratio 13.3 LAB CHEMISTRY METHOD 01/21/2025 11:32 AM [facility] Calcium 9.3 8.5 - 10.5 mg/dL LAB CHEMISTRY METHOD 01/21/2025 11:32 AM [facility] AST (SGOT) 34 10 - 42 unit/L LAB CHEMISTRY METHOD 01/21/2025 11:32 AM [facility] ALT (SGPT) 28 10 - 60 unit/L LAB CHEMISTRY METHOD 01/21/2025 11:32 AM [facility] Alkaline Phosphatase 87 42 - 121 unit/L LAB CHEMISTRY METHOD 01/21/2025 11:32 AM [facility] Total Protein 7.2 6.0 - 8.0 g/dL LAB CHEMISTRY METHOD 01/21/2025 11:32 AM [facility] Albumin 3.8 3.2 - 5.0 g/dL LAB CHEMISTRY METHOD 01/21/2025 11:32 AM [facility] Total Bilirubin 0.9 0.0 - 1.4 mg/dL LAB CHEMISTRY METHOD 01/21/2025 11:32 AM [facility] Blood Venous blood specimen / Unknown Venipuncture / Unknown 01/21/2025 10:25 AM EDT 01/21/2025 10:34 AM EDT us Mickey DAVIS LAB BLOOD ORDERABLES Final Result [facility] [address] [place] [address], [place] [phone] * Urinalysis with reflex microscopic and culture (01/21/2025 9:30 AM EDT) Specific [place] Urine 1.008 1.003 - 1.030 LAB URINALYSIS - AUTOMATED METHOD 01/21/2025 10:15 AM [facility] pH, Urine 7.5 5.0 - 8.0 pH LAB URINALYSIS - AUTOMATED METHOD 01/21/2025 10:15 AM [facility] Leukocytes, Urine Negative Negative LAB URINALYSIS - AUTOMATED METHOD 01/21/2025 10:15 AM [facility] Nitrite, Urine Negative Negative LAB URINALYSIS - AUTOMATED METHOD 01/21/2025 10:15 AM [facility] Protein, Urine Negative <=Trace mg/dL LAB URINALYSIS - AUTOMATED METHOD 01/21/2025 10:15 AM [facility] Glucose, Urine Negative Negative mg/dL LAB URINALYSIS - AUTOMATED METHOD 01/21/2025 10:15 AM [facility] Ketones, Urine Negative Negative mg/dL LAB URINALYSIS - AUTOMATED METHOD 01/21/2025 10:15 AM [facility] Urobilinogen, Urine 0.2 0.2 - 1.0 mg/dL LAB URINALYSIS - AUTOMATED METHOD 01/21/2025 10:15 AM [facility] Bilirubin, Urine Negative Negative LAB URINALYSIS - AUTOMATED METHOD 01/21/2025 10:15 AM EDT [facility] Blood, Urine Negative Negative LAB URINALYSIS - AUTOMATED METHOD 01/21/2025 10:15 AM EDT [facility] Urine Urine specimen obtained by clean catch procedure / Unknown Non-blood Collection / Unknown 01/21/2025 9:30 AM EDT 01/21/2025 10:06 AM EDT Mickey DAVIS LAB URINE ORDERABLES Final Result [facility] [address] [place] [address], [place] [phone] * Grubbs urine culture tube (01/21/2025 9:30 AM EDT) Extra Tube Hold for add-ons. 01/21/2025 12:01 PM EDT [facility] Comment:Auto resulted. Urine Urine specimen obtained by clean catch procedure / Unknown Non-blood Collection / Unknown 01/21/2025 9:30 AM EDT 01/21/2025 10:06 AM EDT Mickey DAVIS LAB URINE ORDERABLES Final Result [facility] [address] [place] [address], [place] [phone] from Last 3 Months Insurance [facility] Care Teams Sleeve Tailor Relationship Specialty Start Date End Date Seble Oscar MD [address] [facility] [address] [facility] Physician Associ D/B/A: [facility] JOSE J Luna PCP - General Internal Medicine 02/21/17
--- OUTSIDE RECORDS SUMMARY | 2025-04-18 10:43 | XMS_ITS | Encounter Summary ---
Author Organization [facility] Address [address] [place] [address] Care Team Providers Care Treatment Plant Operator Name Role Phone Seble Oscar MD Primary Care Provider [phone] Encounter Details Date Type Department Care Team (Late st Contact Info) Description 04/14/2025 Lab Requisition [facility] Lab [address] [place] [address] Benito Ma MD [address] [facility] [address] [place] [address] Benign essential microscopic hematuria Social History Tobacco [...] 12:00 AM EST Benign essential microscopic hematuria documented in this encounter Results * Non-gynecologic cytology (04/11/2025 12:00 AM EST) Final Diagnosis A. Urine, Voided, ([id number]): Negative for high grade urothelial carcinoma. 04/17/2025 3:44 PM EST [facility] at 1544 EST Specimen A Adequacy Satisfactory for evaluation 04/17/2025 3:44 PM EST [facility] Clinical Information Benign essential microscopic hematuria R31.1 Urine Cytology 04/17/2025 3:44 PM [facility] Gross Description A. Urine, Voided, ([id number]): Received one ThinPrep slide for cytology. 04/17/2025 3:44 PM [facility] Disclaimer Unless otherwise specified, all tissue is 10% NB formalin fixed and paraffin embedded. Technical pathology services provided by [facility] [address], [place] [address] (CLIA #[id number]/Louis Hernandez MD, Campaign Developer) 04/17/2025 3:44 PM [facility] Urine Urine specimen from urethra / Unknown 04/11/2025 04/14/2025 2:11 PM EST us Benito Ma MD LAB CYTOLOGY ORDERABLES Fin al Result [facility] [address] [place] [address], documented in this encounter Visit Diagnoses Diagnosis Benign essential microscopic hematuria documented in this encounter Care Teams Treatment Plant Operator Relationship Specialty Start Date End Date Seble Oscar MD [address] [facility] , [address] Physician Associ D/B/A: [facility] Bruce [place] PCP - General Internal Medicine 02/21/17 documented as of this encounter
== END 2025-04-18 10:26 | disposition home or self-care (01) ==
PROVIDERS: PCP Internal Medicine; Visit Provider Nurse Practitioner Family
DX: M54.12 Radiculopathy, cervical region (principal); M25.512 Pain in left shoulder; M96.1 Postlaminectomy syndrome, not elsewhere classified; M54.2 Cervicalgia; M19.012 Primary osteoarthritis, left shoulder
CPT/HCPCS: 99214

== ENCOUNTER → 2025-04-18 10:05 | Outpatient (BNVA) | payer OTHER, SELFPAY | PROVIDERS: PCP Internal Medicine; Visit Provider Nurse Practitioner Family | DX: M50.10 Cervical disc disorder with radiculopathy, unspecified cervical region (principal); M96.1 Postlaminectomy syndrome, not elsewhere classified; M19.012 Primary osteoarthritis, left shoulder | CPT/HCPCS: 99212 ==